=== PATIENT | male | born 1950 | race Caucasian/White ===

== ENCOUNTER 2016-06-29 16:38 | Emergency (ER) | payer MEDICARE, OTHER ==
[~2016-06-29] VITALS: Ht 180.3 cm; Wt 92.0 kg
[~2016-06-29 16:38] MED LIST: 1-ME1LIQ PO; ALBU0.086 NEB; ASPI81 PO; AUGM875T PO; BUSP10 PO; CHOL1TAB35 PO; CLAR10TA7 PO; DOCU100T9 PO; FERR324T4 PO; FIORCAP6 PO; FOLI1TAB PO; GAVICHW PO; LACT PO; LEVO.025 PO; METO25 PO; MIRA33502 PO; NEXI40CA PO; NITR0.4S SL; OLAN20TA PO; PRAZ2CAP PO; PRAZ5 PO; PROZ20CA11 PO; ROPI.5 PO; ROSU40 PO; SPIRCAP INH; SYMB160A INH; TRIX0.07 TOP; VITA100020 PO; ZANT300T PO
[2016-06-29 16:41] VITALS: BP 159/79; PULSE 74; RESP 20; TEMP 97.6; O2SAT 96
[2016-06-29] MEDS ORDERED: SODIUM CHLORIDE 0.9% FLUSH 5 ML FLUSH IVF PRN (18:45)
[2016-06-29] MEDS ORDERED: CLINDAMYCIN INJ 600 MG in SODIUM CHLORIDE 0.9% INJ 100 ML IV ONE (18:45)
[2016-06-29] MEDS ORDERED: ALBU0.08 NEB (18:53)
[2016-06-29] MEDS ORDERED: VITA10002 PO (18:53)
[2016-06-29] MEDS ORDERED: PRAZ5 PO (18:53)
[2016-06-29] MEDS ORDERED: LEVO25TA4 PO (18:53)
[2016-06-29] MEDS ORDERED: FERR325T PO (18:53)
[2016-06-29] MEDS ORDERED: VITA200012 PO (18:53)
[2016-06-29] MEDS ORDERED: BUSP10TA PO (18:53)
[2016-06-29] MEDS ORDERED: SPIRCAP INH (18:53)
[2016-06-29] MEDS ORDERED: BUTA1CAP2 PO (18:53)
[2016-06-29] MEDS ORDERED: PRAZ2 PO (18:53)
[2016-06-29] MEDS ORDERED: ROPI.25 PO (18:53)
[2016-06-29] MEDS ORDERED: NITR0.4S SL (18:53)
[2016-06-29] MEDS ORDERED: METO25TA3 PO (18:53)
[2016-06-29] MEDS ORDERED: PROB1TAB4 PO (18:53)
[2016-06-29] MEDS ORDERED: FOLI1TAB4 PO (18:53)
[2016-06-29] MEDS ORDERED: [UNRECOGNIZED DRUG - CODE] TOP (18:53)
[2016-06-29] MEDS ORDERED: NEXI40CA PO (18:53)
[2016-06-29] MEDS ORDERED: MIRA33504 PO (18:53)
[2016-06-29] MEDS ORDERED: SYMB160A INH (18:53)
[2016-06-29] MEDS ORDERED: ROSU40 PO (18:53)
[2016-06-29] MEDS ORDERED: ASPI1TAB91 PO (18:53)
[2016-06-29] MEDS ORDERED: GAVICHW CHEW (18:53)
[2016-06-29] MEDS ORDERED: PROZ40CA PO (18:53)
[2016-06-29] MEDS ORDERED: OLAN20TA PO (18:53)
[2016-06-29] MEDS ORDERED: LORA-361 PO (18:53)
[2016-06-29] MEDS ORDERED: AMLO10 PO (18:53)
[2016-06-29] MEDS ORDERED: COLA100C3 PO (18:53)
[2016-06-29] MEDS ORDERED: ZANT300T PO (18:53)
[2016-06-29 19:25] VITALS: RESP 16; O2SAT 97
--- NOTE | 2016-06-29 19:28 | RADRPT ---
EXAM DATE/TIME: 06/29/2016 18:55 [facility] COMPARISON: CHEST SINGLE AP, December 08, 2015, 16:56. INDICATIONS : SOB, Swelling MEDICAL HISTORY : Hypertension. SURGICAL HISTORY : None. ENCOUNTER: Initial ACUITY: 1 day PAIN SCORE: 0/10 LOCATION: chest FINDINGS: Minimal bibasilar atelectasis is seen. Focal consolidation is not seen. Heart and mediastinum are unr emarkable for technique. CONCLUSION: Minimal bibasilar atelectasis. Baltazar Lynn MD on June 29, 2016 at 19:26 Board Certified Radiologist. This report was verified electronically.
[2016-06-29 19:42] LABS: AUTOMATED NEUTROPHIL # 6.6 TH/MM3 (1.8-7.7); BASOPHIL # 0.1 TH/MM3 (0-0.2); BASOPHIL % 0.5 % (0.0-2.0); EOSINOPHIL # 0.2 TH/MM3 (0-0.4); EOSINOPHIL % 1.7 % (0.0-4.0); HEMATOCRIT 35.8 % (39.0-51.0); HEMO FLAGS DIFF FINAL; LYMPH % 35.6 % (9.0-44.0); LYMPHOCYTE # 4.4 TH/MM3 (1.0-4.8); MEAN CORPUSCULAR HEMOGLOBIN 29.3 PG (27.0-34.0); MEAN CORPUSCULAR HGB CONC 32.6 % (32.0-36.0); MONO % 8.5 % (0.0-8.0); NEUT % 53.7 % (16.0-70.0); PLATELET COUNT 171 TH/MM3 (150-450); RED BLOOD COUNT 3.97 MIL/MM3 (4.50-5.90); RED CELL DISTRIBUTION WIDTH 14.2 % (11.6-17.2); WHITE BLOOD COUNT 12.3 TH/MM3 (4.0-11.0)
--- NOTE | 2016-06-29 19:42 | PD ---
HPI Chief Complaint: Edema Time Seen by Provider: 18:31 Travel History International Travel<30 days: No Contact w/Intl Traveler<30days: No Traveled to known affect area: No History of Present Illness HPI Patient is a 65 year old male with history of HTN, CAD, PTSD, who comes in complaining of swelling his legs and hands. He says that his legs have been swollen for several weeks. He went to see his primary doctor a few weeks ago who gave him a course of antibiotics, which he says that he finished about 2 weeks ago without improvement of his swelling of his legs. He says yesterday he noticed swelling to his left third finger as well as a small swelling to his right second finger. He says both are painful and that the one on his left hand has grown quickly since last night. He denies fever or chills. He denies any chest pain or SOB. He denies any issues with laying flat or dyspnea on exertion. PFSH Past Medical History Autoimmune Disease: No Blood Disorders: No Anxiety: Yes Depression: Yes Heart Rhythm Problems: No Cancer: Yes ( RECTAL) Cardiac Catheterization: No Cardiovascular Problems: Yes (HTN) High Cholesterol: Yes Chest Pain: Yes ("OCASSIONALLY" ) Congestive Heart Failure: No Cerebrovascular Accident: No Diabetes: No Diminished Hearing: No Endocrine: Yes Gastrointestinal Disorders: Yes (COLONIC POLYPS) GERD: Yes Genitourinary: Yes (ENLARGED PROSTATE--DID SELF CATHETERIZATION FOR A TIME) Headaches: Yes Hepatitis: No Hiatal Hernia: Yes Hypertension: Yes Immune Disorder: No Medical other: Yes (PULMONARY EMBOLI, RESTLESS LEG SYNDROME) Musculoskeletal: Yes (CHRONIC NECK AND BACK PAIN; RIGHT SCIATICA) Psychiatric: Yes (DISSOCIATIVE DISORDER, PTSD) Reproductive: No Respiratory: Yes (SLEEP APNEA /CPAP, COPD) Migraines: No Myocardial Infarction: Yes Sleep Apnea: Yes Thyroid Disease: Yes Ulcer: Yes (PUD) Past Surgical History Abdominal Surgery: No AICD: No Body Medical Devices: CERVICAL HARDWARE Cardiac Surgery: No Coronary Artery Bypass Graft: No Ear Surgery: No Endocrine Surgery: No Eye Surgery: No Genitourinary Surgery: No Gynecologic Surgery: No Joint Replacement: No Neurologic Surgery: Yes (CERVICAL 4/5 FUSION APR 03) Oral Surgery: Yes (TONSILLECTOMY) Pacemaker: No Thoracic Surgery: No Tonsillectomy: Yes Other Surgery: Yes (CARPEL TUNNEL SURGERY) Social History Alcohol Use: No Tobacco Use: Yes (3/4ppd) Substance Use: No Allergies-Medications (Allergen,Severity, Reaction): Coded Allergies: *MDRO Multi-Drug Resistant Organism (Verified Adverse Reaction, Unknown, ) 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 Repeat every 5 minutes for a total of 3 DOSES or call 911 if NO relief. Vitamin B-12 (Cyanocobalamin) 1,000 Mcg Tab 1,000 Mcg PO DAILY Miralax Powder (Polyethylene Glycol 3350 Powder) 17 Gm Powd 17 Gm PO BID PRN Mix and dissolve one measuring capful (17 grams) in water or juice. Minipress (Prazosin HCl) 2 Mg Cap 7 Mg PO HS Take 1 capsule (2mg) with 5mg capsule for a total dose of 7mg Minipress (Prazosin HCl) 5 Mg Cap 7 Mg PO HS Take 1 capsule (5mg) with 2mg capsule for a total dose of 7mg Metoprolol Tartrate 25 Mg Tab 12.5 Mg PO BID Claritin (Loratadine) 10 Mg Tab 10 Mg PO DAILY Levothyroxine (Levothyroxine Sodium) 25 Mcg Tab 25 Mcg PO DAILY Gaviscon (Aluminum Hydroxide-Mag Trisil) 80-14.2 mg Chew 2 Tab CHEW TIDAC PRN Maximum 16 tabs/24 hrs Folate (Folic Acid) 1 Mg Tab 1 Mg PO EVERY OTHER DAY Prozac (Fluoxetine HCl) 40 Mg Cap 40 Mg PO DAILY Ferrous Sulfate 325 Mg Tab 325 Mg PO BID Nexium (Esomeprazole DR) 40 Mg Capdr 40 Mg PO DAILY Colace (Docusate Sodium) 100 Mg Cap 100 Mg PO BID PRN Zostrix High Potency (Capsaicin) 0.075 % Cre 1 Applic TOP TID PRN Vitamin D3 (Cholecalciferol) 2,000 Unit Tab 2,000 Units PO DAILY Fioricet-Codeine (Nknwtrozrl-Mdpdtqpratqua-Htlssnrs-Codeine) 02-706-38-30 Mg Cap 1 Cap PO TID PRN Do not exceed 6 capsules/day. No more than twice a week. Buspirone (Buspirone HCl) 10 Mg Tab 20 Mg PO TID Symbicort Inh (Budesonide/Formoterol Fumarate) 160-4.5 Mcg/Act Aero 2 Puff INH BID Aspirin Adult Low Strength (Aspirin) 81 Mg Tabdr 81 Mg PO DAILY Albuterol Neb (Albuterol Sulfate) 2.5 Mg/3 Ml Neb 2.5 Mg NEB BID Acidophilus Probiotic (Probiotic Product) 1 Tab Tab 2 Tab PO DAILY Norvasc (Amlodipine Besylate) 10 Mg Tab 10 Mg PO DAILY Review of Systems Except as stated in HPI: all other systems reviewed are Neg General / Constitutional: No: Fever, Chills HENT: No: Headaches, Lightheadedness Cardiovascular: No: Chest Pain or Discomfort Respiratory: No: Shortness of Breath Gastrointestinal: No: Nausea, Vomiting Genitourinary: No: Dysuria Musculoskeletal: Positive: Edema, Pain Skin: Positive Lesions Neurologic: No: Weakness, Dizziness Physical Exam Narrative GENERAL: Awake and alert in no acute distress. SKIN: Warm and dry. 4cm fluctuant lesion at the base of the left third finger. 1cm tender ecchymotic lesion to the right second finger, tender to palpation. Red streaking to the dorsal surface of the left hand. HEAD: Atraumatic. Normocephalic. EYES: Pupils equal and round. No scleral icterus. ENT: Mucous membranes pink and moist. NECK: Trachea midline. No JVD. CARDIOVASCULAR: Regular rate and rhythm. No murmur appreciated. RESPIRATORY: No accessory muscle use. Clear to auscultation. Breath sounds equal bilaterally. GASTROINTESTINAL: Abdomen soft, non-tender, nondistended. MUSCULOSKELETAL: No obvious deformities. No clubbing. No cyanosis. Large bilateral pitting edema, calves tender to palpation. NEUROLOGICAL: Awake and alert. No obvious cranial nerve deficits. Motor grossly within normal limits. Normal speech. PSYCHIATRIC: Appropriate mood and affect; insight and judgment normal. Data Data Last Documented VS Vital Signs Date Time Temp Pulse Resp B/P Pulse Ox O2 Delivery O2 Flow Rate FiO2 06/29/16 19:25 16 97 Room Air 06/29/16 18:26 57 06/29/16 16:41 97.6 159/79 Orders Complete Blood Count With Diff (06/29/16 18:42) Comprehensive Metabolic Panel (06/29/16 18:42) B-Type Natriuretic Peptide (06/29/16 18:42) Act Partial Throm Time (Ptt) (06/29/16 18:42) Prothrombin Time / Inr (Pt) (06/29/16 18:42) Troponin I (06/29/16 18:42) Iv Access Insert/Monitor (06/29/16 18:42) Electrocardiogram (06/29/16 18:42) Ecg Monitoring (06/29/16 18:42) Oximetry (06/29/16 18:42) Oxygen Administration (06/29/16 18:42) Chest, Pa & Lat (06/29/16 18:42) Sodium Chloride 0.9% Flush (Ns Flush) (06/29/16 18:45) Us Leg Venous Doppler Bilat (06/29/16 ) Clindamycin Inj (Cleocin Inj) (06/29/16 18:45) Wound Culture And Gram Stain (06/29/16 18:48) Labs Laboratory Tests Test 06/29/16 18:15 White Blood Count 12.3 TH/MM3 Red Blood Count 3.97 MIL/MM3 Hemoglobin 11.7 GM/DL Hematocrit 35.8 % Mean Corpuscular Volume 90.0 FL Mean Corpuscular Hemoglobin 29.3 PG Mean Corpuscular Hemoglobin 32.6 % Concent Red Cell Distribution Width 14.2 % Platelet Count 171 TH/MM3 Mean Platelet Volume 8.8 FL Neutrophils (%) (Auto) 53.7 % Lymphocytes (%) (Auto) 35.6 % Monocytes (%) (Auto) 8.5 % Eosinophils (%) (Auto) 1.7 % Basophils (%) (Auto) 0.5 % Neutrophils # (Auto) 6.6 TH/MM3 Lymphocytes # (Auto) 4.4 TH/MM3 Monocytes # (Auto) 1.0 TH/MM3 Eosinophils # (Auto) 0.2 TH/MM3 Basophils # (Auto) 0.1 TH/MM3 CBC Comment DIFF FINAL Differential Comment Prothrombin Time 10.7 SEC Prothromb Time International 1.0 RATIO Ratio Activated Partial 27.3 SEC Thromboplast Time Sodium Level 141 MEQ/L Potassium Level 3.9 MEQ/L Chloride Level 109 MEQ/L Carbon Dioxide Level 26.1 MEQ/L Anion Gap 6 MEQ/L Blood Urea Nitrogen 20 MG/DL Creatinine 0.89 MG/DL Estimat Glomerular Filtration 86 ML/MIN Rate Random Glucose 96 MG/DL Calcium Level 8.5 MG/DL Total Bilirubin 0.3 MG/DL Aspartate Amino Transf 10 U/L (AST/SGOT) Alanine Aminotransferase 19 U/L (ALT/SGPT) Alkaline Phosphatase 123 U/L Troponin I LESS THAN 0.02 NG/ML B-Type Natriuretic Peptide 42 PG/ML Total Protein 6.6 GM/DL Albumin 3.5 GM/DL [facility] Medical Decision Making Medical Screen Exam Complete: Yes Emergency Medical Condition: Yes Medical Record Reviewed: Yes Differential Diagnosis CHF vs peripheral edema vs cellulitis vs paronychia vs DVT Narrative Course Patient is a 65-year-old male who comes in complaining of swelling of his legs and his hands. Exam shows a paronychia of the left hand, with some red streaking of his skin consistent with cellulitis. Both legs are edematous as well. IV established, labs sent. Paronychia drained and bandaged. Patient given a dose of clindamycin. Bilateral Dopplers order to rule out DVT. Patient signed out to Dr. Torres to follow-up tests and disposition appropriately. Procedures Procedure Narrative INCISION AND DRAINAGE OF ABSCESS: The area was prepped and was sterilely draped. A number 11 scalpel was used to make a 1 -cm incision at the base of the nail. Large amount of serosanguineous fluid drained. Cultures were obtained. Sterile dressing applied. Scripts Sulfamethoxazole-Trimethoprim (Bactrim DS)800-160 Mg Tab1 Tab PO BID #20 TAB Ref 0 Prov:Izaiah Torres MD 06/29/16 Condition: Stable Norma Florence MD Jun 29, 2016 19:42
[2016-06-29 19:56] LABS: APTT (PATIENT) 27.3 SEC (24.3-30.1); PROTHROMBIN TIME - PATIENT 10.7 SEC (9.8-11.6)
[2016-06-29 20:06] LABS: ANION GAP 6 MEQ/L (5-15); AST (GOT) 10 U/L (15-37); BICARBONATE 26.1 MEQ/L (21.0-32.0); BLOOD UREA NITROGEN 20 MG/DL (7-18); CHLORIDE 109 MEQ/L (98-107); GLOMERULAR FILTRATION RATE 86 ML/MIN (>89); POTASSIUM 3.9 MEQ/L (3.5-5.1); SODIUM (NA) 141 MEQ/L (136-145)
[2016-06-29 20:11] LABS: ALKALINE PHOSPHATASE 123 U/L (45-117); ALT (GPT) 19 U/L (12-78); TOTAL BILIRUBIN ADULT 0.3 MG/DL (0.2-1.0)
--- NOTE | 2016-06-29 20:41 | RADRPT ---
EXAM DATE/TIME: 06/29/2016 19:28 [facility] COMPARISON: No previous studies available for comparison. INDICATIONS : Bilateral leg swelling. MEDICAL HISTORY : Myocardial infarction. Hypercholesterolemia. Hypertension. Chronic obstuctive pulmonary disorder. Thy roid disease. Headaches. Sleep apnea. Colonic polyps. Ulcers. Hiatal hernia. Gastroesophageal reflux disease. Benign prostatic hypertrophy. Post traumatic stress disorder. Rectal cancer. Measles. Pulmon sourav emboli. Restless leg syndrome. Chronic back pain. SURGICAL HISTORY : Tonsillectomy.Fusion, cervical. Right shoulder surgery. Carpal tunnel surgery. ENCOUNTER: Initial ACUITY: 1 day PAIN SCORE: 5/10 LOCATION: Bilateral legs. TECHNIQUE: Venous ultrasound of the left and right leg was performed from the inguinal ligament to the proximal calf. Real-time, color Doppler and spectral tracing, compression and augmentation techniques were us ed. FINDINGS: RIGHT LEG: There is normal compressibility of the deep venous system from the inguinal region to the proximal ca lf. No echogenic clot is seen in the lumen of the common femoral, femoral, popliteal, and posterior tibial veins. There is a normal response of the venous system to proximal and distal augmentation an d respiration. LEFT LEG: There is normal compressibility of the deep venous system from the inguinal region to the proximal ca lf. No echogenic clot is seen in the lumen of the common femoral, femoral, popliteal, and posterior tibial veins. There is a normal response of the venous system to proximal and distal augmentation an d respiration. Multiple enlarged lymph nodes are present the largest one measures 3.1 cm in size. Th ere is also an approximate 3.2 cm Tavares's cyst. CONCLUSION: 1. No DVT. 2. Tavares's cyst and nonspecific lymph nodes on the left side. Baltazar Lynn MD on June 29, 2016 at 20:38 Board Certified Radiologist. This report was verified electronically.
[2016-06-29] MEDS ORDERED: BACT800T5 PO (20:57)
--- NOTE | 2016-06-29 20:57 | PD ---
Physical Exam Date Seen by Provider: Jun 29, 2016 Time Seen by Provider: 20:52 Narrative 65-year-old male came to the emergency room with history of bilateral lower extremity swelling and swelling of his hands. He was seen by the previous ER physician who also noticed that patient had paronychia which was drained. Therefore lab tests ordered an ultrasound of his lower extremities which was signed out to need to be followed up. Test results are back. Patient has some leukocytosis. Ultrasound shows a popliteal cyst. Other than that the test results are unremarkable. I am planning to discharge this patient home with by mouth antibiotic prescription. He did get a dose of antibiotic as per the previous ER physician. Patient is comfortable with that plan. Data Data Last Documented VS Vital Signs Date Time Temp Pulse Resp B/P Pulse Ox O2 Delivery O2 Flow Rate FiO2 06/29/16 19:25 16 97 Room Air 06/29/16 18:26 57 06/29/16 16:41 97.6 159/79 Orders Complete Blood Count With Diff (06/29/16 18:42) Comprehensive Metabolic Panel (06/29/16 18:42) B-Type Natriuretic Peptide (06/29/16 18:42) Act Partial Throm Time (Ptt) (06/29/16 18:42) Prothrombin Time / Inr (Pt) (06/29/16 18:42) Troponin I (06/29/16 18:42) Iv Access Insert/Monitor (06/29/16 18:42) Electrocardiogram (06/29/16 18:42) Ecg Monitoring (06/29/16 18:42) Oximetry (06/29/16 18:42) Oxygen Administration (06/29/16 18:42) Chest, Pa & Lat (06/29/16 18:42) Sodium Chloride 0.9% Flush (Ns Flush) (06/29/16 18:45) Us Leg Venous Doppler Bilat (06/29/16 ) Clindamycin Inj (Cleocin Inj) (06/29/16 18:45) Wound Culture And Gram Stain (06/29/16 18:48) Labs Laboratory Tests Test 06/29/16 18:15 White Blood Count 12.3 TH/MM3 Red Blood Count 3.97 MIL/MM3 Hemoglobin 11.7 GM/DL Hematocrit 35.8 % Mean Corpuscular Volume 90.0 FL Mean Corpuscular Hemoglobin 29.3 PG Mean Corpuscular Hemoglobin 32.6 % Concent Red Cell Distribution Width 14.2 % Platelet Count 171 TH/MM3 Mean Platelet Volume 8.8 FL Neutrophils (%) (Auto) 53.7 % Lymphocytes (%) (Auto) 35.6 % Monocytes (%) (Auto) 8.5 % Eosinophils (%) (Auto) 1.7 % Basophils (%) (Auto) 0.5 % Neutrophils # (Auto) 6.6 TH/MM3 Lymphocytes # (Auto) 4.4 TH/MM3 Monocytes # (Auto) 1.0 TH/MM3 Eosinophils # (Auto) 0.2 TH/MM3 Basophils # (Auto) 0.1 TH/MM3 CBC Comment DIFF FINAL Differential Comment Prothrombin Time 10.7 SEC Prothromb Time International 1.0 RATIO Ratio Activated Partial 27.3 SEC Thromboplast Time Sodium Level 141 MEQ/L Potassium Level 3.9 MEQ/L Chloride Level 109 MEQ/L Carbon Dioxide Level 26.1 MEQ/L Anion Gap 6 MEQ/L Blood Urea Nitrogen 20 MG/DL Creatinine 0.89 MG/DL Estimat Glomerular Filtration 86 ML/MIN Rate Random Glucose 96 MG/DL Calcium Level 8.5 MG/DL Total Bilirubin 0.3 MG/DL Aspartate Amino Transf 10 U/L (AST/SGOT) Alanine Aminotransferase 19 U/L (ALT/SGPT) Alkaline Phosphatase 123 U/L Troponin I LESS THAN 0.02 NG/ML B-Type Natriuretic Peptide 42 PG/ML Total Protein 6.6 GM/DL Albumin 3.5 GM/DL MDM Supervised Visit with ADILSON: No Procedures Procedure Narrative Incision and drainage: 9:37 PM: right thumb has an abscess that is 1 x 1 cm at the tip of the thumb pad. Patient is extremely tender to touch on that area. I decided to drain the abscess. It was agreed upon mutually that this would be done without local anesthesia. The area was cleaned with Betadine and with sterile scalpel a 0.5 cm incision was made horizontally. Immediately purulent material started to drain out. The soft tissue was pushed on to express more purulent content. Swab was sent for culture. Patient was in pain but overall tolerated the procedure well. The nurse will do the dressing. Diagnosis Primary Impression: Paronychia Qualified Code: L03.012 - Paronychia, left Additional Impressions: Dependent edema Tavares cyst Qualified Code: M71.22 - Tavares cyst, left Abscess Referrals: Primary Care Physician 3 days Additional Instruction: Please return to the ER if the condition worsens or any other new concerns. Otherwise follow-up with your primary care in couple days. Take the antibiotic as per the prescription direction. Wear compression stockings to minimize the leg swelling. Keep the legs elevated above the heart level. Med/Other Pt SpecificInfo: Prescription(s) given Scripts Sulfamethoxazole-Trimethoprim (Bactrim DS)800-160 Mg Tab1 Tab PO BID #20 TAB Ref 0 Prov:Izaiah Torres MD 06/29/16 Disposition: 01 DISCHARGE HOME Condition: Stable Izaiah Torres MD Jun 29, 2016 20:57
--- NOTE | 2016-07-01 13:18 | EKG ---
Date Performed: 06/29/2016 Time Performed: 20:11:26 PTAGE: 65 years EKG: SINUS BRADYCARDIA Since previous tracing, no significant change noted BORDERLINE ECG PREVIOUS TRACING : 12/08/2015 16.46 DOCTOR: Chanell Lee Interpretating Date/Time 07/01/2016 13:17:08
== END 2016-06-29 22:33 | disposition home or self-care (01) ==
LOC: NEPC 16:38
DX: L03.012 Cellulitis of left finger (principal); B95.62 Methicillin resistant Staphylococcus aureus infection as the cause of diseases classified elsewhere; R60.9 Edema, unspecified; M71.22 Synovial cyst of popliteal space [Baker], left knee; R00.1 Bradycardia, unspecified; R59.9 Enlarged lymph nodes, unspecified; E78.00 Pure hypercholesterolemia, unspecified; I10 Essential (primary) hypertension; I25.2 Old myocardial infarction; R06.02 Shortness of breath; F17.210 Nicotine dependence, cigarettes, uncomplicated
CPT/HCPCS: 10060; 71020; 80053; 83880; 84484; 85025; 85610; 85730; 86403; 87070; 87186; 87205; 93005; 93970; 96365; 96366

== ENCOUNTER 2016-08-28 08:44 | Inpatient (IN) | payer OTHER ==
[~2016-08-28] VITALS: Ht 180.3 cm; Wt 102.3 kg
[2016-08-28] VITALS (7 sets, daily range): BP systolic 69–119; BP diastolic 52–59; PULSE 72–99; RESP 12–20; TEMP 97.5–100.7; O2SAT 92–98
[~2016-08-28 08:44] MED LIST changes: -1-ME1LIQ PO; +ALBU0.08 NEB; -ALBU0.086 NEB; +AMLO10 PO; +ASPI1TAB91 PO; -ASPI81 PO; -AUGM875T PO; +BACT800T5 PO; -BUSP10 PO; +BUSP10TA PO; +BUTA1CAP2 PO; -CHOL1TAB35 PO; -CLAR10TA7 PO; +COLA100C3 PO; -DOCU100T9 PO; -FERR324T4 PO; +FERR325T PO; -FIORCAP6 PO; -FOLI1TAB PO; +FOLI1TAB4 PO; +GAVICHW CHEW; -GAVICHW PO; -LACT PO; -LEVO.025 PO; +LEVO25TA4 PO; +LORA-361 PO; -METO25 PO; +METO25TA3 PO; -MIRA33502 PO; +MIRA33504 PO; +PRAZ2 PO; -PRAZ2CAP PO; +PROB1TAB4 PO; -PROZ20CA11 PO; +PROZ40CA PO; +ROPI.25 PO; -ROPI.5 PO; -TRIX0.07 TOP; +VITA10002 PO; -VITA100020 PO; +VITA200012 PO; +[UNRECOGNIZED DRUG - CODE] TOP
--- NOTE | 2016-08-28 09:11 | PD ---
HPI Chief Complaint: Skin Problem Time Seen by Provider: 09:10 Travel History International Travel<30 days: No Contact w/Intl Traveler<30days: No Traveled to known affect area: No History of Present Illness HPI 65-year-old male came to the emergency room with history of right arm swelling that he noticed yesterday along with fever and chills last night. Patient says he has history of MRSA. He had a temperature of 99.9 in the ER. He seems slightly somnolent. But answers my questions appropriately. His arm is very swollen and red and he says he noticed this yesterday only. There is a small opening near the elbow that's draining. Patient denied scratching it or trying to manipulate a pimple. He says he has history of leukemia but does not know exactly what kind. He is not on any chemotherapy since he refused that he said. Patient denied being on any blood thinners. He is on 1 baby aspirin every day. [facility] Past Medical History Narrative Medical List of his past medical, surgical, social and family history was reviewed from the nursing note. Hx Anticoagulant Therapy: Yes (asa daily) Autoimmune Disease: No Blood Disorders: No Anxiety: Yes Depression: Yes Heart Rhythm Problems: No Cancer: Yes ( RECTAL) Cardiac Catheterization: No Cardiovascular Problems: Yes (HTN) High Cholesterol: Yes Chest Pain: Yes ("OCASSIONALLY" ) Congestive Heart Failure: No Cerebrovascular Accident: No Diabetes: No Diminished Hearing: No Endocrine: Yes Gastrointestinal Disorders: Yes (COLONIC POLYPS) GERD: Yes Genitourinary: Yes (ENLARGED PROSTATE--DID SELF CATHETERIZATION FOR A TIME) Headaches: Yes Hepatitis: No Hiatal Hernia: Yes Hypertension: Yes Immune Disorder: No Medical other: Yes (PULMONARY EMBOLI, RESTLESS LEG SYNDROME) Musculoskeletal: Yes (CHRONIC NECK AND BACK PAIN; RIGHT SCIATICA) Psychiatric: Yes (DISSOCIATIVE DISORDER, PTSD) Reproductive: No Respiratory: Yes (SLEEP APNEA /CPAP, COPD) Migraines: No Myocardial Infarction: Yes Sleep Apnea: Yes Thyroid Disease: Yes Ulcer: Yes (PUD) Tetanus Vaccination: < 5 Years Influenza Vaccination: Yes Past Surgical History Abdominal Surgery: No AICD: No Body Medical Devices: CERVICAL HARDWARE Cardiac Surgery: No Coronary Artery Bypass Graft: No Ear Surgery: No Endocrine Surgery: No Eye Surgery: No Genitourinary Surgery: No Gynecologic Surgery: No Joint Replacement: No Neurologic Surgery: Yes (CERVICAL 4/5 FUSION APR 03) Oral Surgery: Yes (TONSILLECTOMY) Pacemaker: No Thoracic Surgery: No Tonsillectomy: Yes Other Surgery: Yes (CARPEL TUNNEL SURGERY) Social History Alcohol Use: No Tobacco Use: Yes (07/28ppd) Substance Use: No Allergies-Medications (Allergen,Severity, Reaction): Coded Allergies: *MDRO Multi-Drug Resistant Organism (Verified Adverse Reaction, Unknown, ) MRSA (finger)-06/29/16; (arm)-08/28/16 Comments List of his allergies reviewed from the nursing note. Reported Meds & Prescriptions Reported Meds & Active Scripts Active Reported Spiriva Handihaler (Tiotropium Inh) 18 Mcg Cap 1 Puff INH DAILY 1 capsule = 18 mcg Crestor (Rosuvastatin Calcium) 40 Mg Tab 40 Mg PO HS Requip (Ropinirole HCl) 0.25 Mg Tab 0.25 Mg PO HS Zantac (Ranitidine HCl) 300 Mg Tab 300 Mg PO BID Olanzapine 20 Mg Tab 20 Mg PO DAILY Nitrostat SL (Nitroglycerin) 0.4 Mg Subl 0.4 Mg SL DIRECTED PRN 1 tablet under the tongue as needed for chest pain. Repeat every 5 minutes for a total of 3 DOSES or call 911 if NO relief. Vitamin B-12 (Cyanocobalamin) 1,000 Mcg Tab 1,000 Mcg PO DAILY Miralax Powder (Polyethylene Glycol 3350 Powder) 17 Gm Powd 17 Gm PO BID PRN Mix and dissolve one measuring capful (17 grams) in water or juice. Minipress (Prazosin HCl) 2 Mg Cap 7 Mg PO HS Take 1 capsule (2mg) with 5mg capsule for a total dose of 7mg Minipress (Prazosin HCl) 5 Mg Cap 7 Mg PO HS Take 1 capsule (5mg) with 2mg capsule for a total dose of 7mg Metoprolol Tartrate 25 Mg Tab 12.5 Mg PO BID Claritin (Loratadine) 10 Mg Tab 10 Mg PO DAILY Levothyroxine (Levothyroxine Sodium) 25 Mcg Tab 25 Mcg PO DAILY Gaviscon (Aluminum Hydroxide-Mag Trisil) 80-14.2 mg Chew 2 Tab CHEW TIDAC PRN Maximum 16 tabs/24 hrs Folate (Folic Acid) 1 Mg Tab 1 Mg PO EVERY OTHER DAY Prozac (Fluoxetine HCl) 40 Mg Cap 40 Mg PO DAILY Ferrous Sulfate 325 Mg Tab 325 Mg PO BID Nexium (Esomeprazole DR) 40 Mg Capdr 40 Mg PO DAILY Colace (Docusate Sodium) 100 Mg Cap 100 Mg PO BID PRN Vitamin D3 (Cholecalciferol) 2,000 Unit Tab 2,000 Units PO DAILY Fioricet-Codeine (Nnwecsyjzg-Rjszinujsmgor-Omgxvbbu-Codeine) 75-443-22-30 Mg Cap 1 Cap PO TID PRN Do not exceed 6 capsules/day. No more than twice a week. Buspirone (Buspirone HCl) 10 Mg Tab 20 Mg PO TID Symbicort Inh (Budesonide/Formoterol Fumarate) 160-4.5 Mcg/Act Aero 2 Puff INH BID Aspirin Adult Low Strength (Aspirin) 81 Mg Tabdr 81 Mg PO DAILY Albuterol Neb (Albuterol Sulfate) 2.5 Mg/3 Ml Neb 2.5 Mg NEB BID Norvasc (Amlodipine Besylate) 10 Mg Tab 10 Mg PO DAILY Narrative Medication List of his home medications reviewed from the nursing note. Review of Systems Except as stated in HPI: all other systems reviewed are Neg Physical Exam Narrative GENERAL: Somnolent but opens his eyes and answers questions appropriately, obese , moderate distress SKIN: Focused skin assessment warm/dry. Right arm is swollen distal to the elbow with erythema. On the extensor aspect of the forearm just distal to the elbow there is an opening that's draining serous sanguinous fluid. Distal pulses are present. HEAD: Atraumatic. Normocephalic. EYES: Pupils equal and round. No scleral icterus. No injection or drainage. ENT: No nasal bleeding or discharge. Mucous membranes pink and moist. NECK: Trachea midline. No JVD. CARDIOVASCULAR: Regular rate and rhythm. No murmur appreciated. RESPIRATORY: No accessory muscle use. Clear to auscultation. Breath sounds equal bilaterally. GASTROINTESTINAL: Abdomen soft, non-tender, nondistended. Hepatic and splenic margins not palpable. MUSCULOSKELETAL: No obvious deformities. No clubbing. No cyanosis. No edema. NEUROLOGICAL: Awake and alert. No obvious cranial nerve deficits. Motor grossly within normal limits. Normal speech. PSYCHIATRIC: Appropriate mood and affect; insight and judgment normal. Data Data Last Documented VS Vital Signs Date Time Temp Pulse Resp B/P Pulse Ox O2 Delivery O2 Flow Rate FiO2 08/28/16 10:05 72 18 106/58 98 Room Air 08/28/16 08:48 99.4 Orders Complete Blood Count With Diff (08/28/16 09:22) Comprehensive Metabolic Panel (08/28/16:) Lactic Acid Sepsis Protocol (08/28/16:22) Blood Culture (08/28/16:) Wound Culture And Gram Stain (08/28/16:) Chest, Single Ap (08/28/16:) Blood Glucose (08/28/16:22) Ecg Monitoring (08/28/16:) Iv Access Insert/Monitor (08/28/16) Oximetry (08/28/16:) Oxygen Administration (08/28/16:) Piperacil-Tazo 4.5 Gm Premix (Zosyn 4.5 (08/28/16:) Vancomycin Inj (Vancomycin Inj) (08/28/16:22) Sodium Chlor 0.9% 1000 Ml Inj (Ns 1000 M (08/28/16 09:22) Sodium Chlor 0.9% 1000 Ml Inj (Ns 1000 M (08/28/16 09:22) Sodium Chlor 0.9% 1000 Ml Inj (Ns 1000 M (08/28/16 09:22) Ct Forearm W Iv Contrast (08/28/16 ) Type And Screen (08/28/16 09:25) Iohexol 350 Inj (Omnipaque 350 Inj) (08/28/16 10:54) Admit Order (Ed Use Only) (08/28/16 10:59) Labs Laboratory Tests Test 08/28/16 09:30 White Blood Count 15.4 TH/MM3 Red Blood Count 4.24 MIL/MM3 Hemoglobin 12.5 GM/DL Hematocrit 36.9 % Mean Corpuscular Volume 87.1 FL Mean Corpuscular Hemoglobin 29.5 PG Mean Corpuscular Hemoglobin 33.8 % Concent Red Cell Distribution Width 13.9 % Platelet Count 200 TH/MM3 Mean Platelet Volume 8.8 FL Neutrophils (%) (Auto) 60.7 % Lymphocytes (%) (Auto) 29.9 % Monocytes (%) (Auto) 8.2 % Eosinophils (%) (Auto) 0.9 % Basophils (%) (Auto) 0.3 % Neutrophils # (Auto) 9.3 TH/MM3 Lymphocytes # (Auto) 4.6 TH/MM3 Monocytes # (Auto) 1.3 TH/MM3 Eosinophils # (Auto) 0.1 TH/MM3 Basophils # (Auto) 0.0 TH/MM3 CBC Comment DIFF FINAL Differential Comment Sodium Level 135 MEQ/L Potassium Level 3.5 MEQ/L Chloride Level 98 MEQ/L Carbon Dioxide Level 27.2 MEQ/L Anion Gap 10 MEQ/L Blood Urea Nitrogen 30 MG/DL Creatinine 1.66 MG/DL Estimat Glomerular Filtration 42 ML/MIN Rate Random Glucose 125 MG/DL Lactic Acid Level 1.4 mmol/L Calcium Level 9.0 MG/DL Total Bilirubin 0.7 MG/DL Aspartate Amino Transf 10 U/L (AST/SGOT) Alanine Aminotransferase 16 U/L (ALT/SGPT) Alkaline Phosphatase 119 U/L Total Protein 6.9 GM/DL Albumin 3.2 GM/DL Blood Type A POSITIVE Antibody Screen NEGATIVE MDM Medical Decision Making Medical Screen Exam Complete: Yes Emergency Medical Condition: Yes Medical Record Reviewed: Yes Differential Diagnosis Abscess, cellulitis, sepsis Narrative Course 9:35 AM awaiting for the blood test results. I've ordered CT scan of the forearm with IV contrast. Awaiting for that to be done and resulted. He has been started on sepsis protocol. I have ordered him Zosyn and vancomycin given his previous history of MRSA. He will require admission. A wound culture was collected by me on the drainage from the forearm. Procedures EKG Prior to Arrival: No Sepsis Criteria SIRS Criteria (2 or more): Heart rate over 90, WBC > 90438, < 4000 or > 10% bands Sepsis Criteria (SIRS+source): Infect source susp/known Diagnosis Primary Impression: SIRS (systemic inflammatory response syndrome) Additional Impression: Right arm cellulitis Admitting Information Admitting Physician Requests: Admit Izaiah Torres MD Aug 28, 2016 09:11
[2016-08-28] MEDS ORDERED: PIPERACIL-TAZO 4.5 GM PREMIX 100 ML IV STA (09:22)
[2016-08-28] MEDS ORDERED: VANCOMYCIN INJ 1,000 MG in SODIUM CHLOR 0.9% 250 ML INJ 250 ML IV STA (09:22)
[2016-08-28] MEDS ORDERED: SODIUM CHLOR 0.9% 1000 ML INJ 1,000 ML IV ONE ×3 (09:22)
--- NOTE | 2016-08-28 09:47 | RADRPT ---
EXAM DATE/TIME: 08/28/2016 09:27 [facility] COMPARISON: CHEST SINGLE AP, December 08, 2015, 16:56. INDICATIONS : Fever, infected right arm. MEDICAL HISTORY : None. SURGICAL HISTORY : None. ENCOUNTER: Initial ACUITY: 1 day PAIN SCORE: 0/10 LOCATION: Bilateral chest FINDINGS: A single view of the chest demonstrates the lungs to be symmetrically aerated with right basilar scar ring or atelectasis. Lungs otherwise clear. No effusions. Heart size is normal. Osseous structures ar e intact. Wire density projects over the coracoid and clavicle on the right. CONCLUSION: Linear scarring or atelectasis in the right base. David Keene MD on August 28, 2016 at 9:42 Board Certified Radiologist. This report was verified electronically.
[2016-08-28 10:07] LABS: AUTOMATED NEUTROPHIL # 9.3 TH/MM3 (1.8-7.7); BASOPHIL % 0.3 % (0.0-2.0); EOSINOPHIL # 0.1 TH/MM3 (0-0.4); EOSINOPHIL % 0.9 % (0.0-4.0); HEMATOCRIT 36.9 % (39.0-51.0); HEMO FLAGS DIFF FINAL; LYMPH % 29.9 % (9.0-44.0); LYMPHOCYTE # 4.6 TH/MM3 (1.0-4.8); MEAN CELL VOLUME 87.1 FL (80.0-100.0); MEAN CORPUSCULAR HEMOGLOBIN 29.5 PG (27.0-34.0); MEAN CORPUSCULAR HGB CONC 33.8 % (32.0-36.0); MONO % 8.2 % (0.0-8.0); NEUT % 60.7 % (16.0-70.0); PLATELET COUNT 200 TH/MM3 (150-450); RED BLOOD COUNT 4.24 MIL/MM3 (4.50-5.90); RED CELL DISTRIBUTION WIDTH 13.9 % (11.6-17.2); WHITE BLOOD COUNT 15.4 TH/MM3 (4.0-11.0)
[2016-08-28 10:18] LABS: ALT (GPT) 16 U/L (12-78); ANION GAP 10 MEQ/L (5-15); AST (GOT) 10 U/L (15-37); BICARBONATE 27.2 MEQ/L (21.0-32.0); BLOOD UREA NITROGEN 30 MG/DL (7-18); CHLORIDE 98 MEQ/L (98-107); GLOMERULAR FILTRATION RATE 42 ML/MIN (>89); POTASSIUM 3.5 MEQ/L (3.5-5.1); SODIUM (NA) 135 MEQ/L (136-145)
[2016-08-28 10:20] LABS: ALKALINE PHOSPHATASE 119 U/L (45-117); TOTAL BILIRUBIN ADULT 0.7 MG/DL (0.2-1.0)
[2016-08-28] MEDS ORDERED: IOHEXOL 350 MG/ML 10 ML VIAL (for RAD DIAG) IV ONE (10:54)
--- NOTE | 2016-08-28 11:07 | HHI.HP ---
[facility] Service Family Medicine Primary Care Physician [facility] Admission Diagnosis SIRS, right forearm cellulitis Diagnoses: International Travel<30 Days: No Contact w/Intl Traveler<30days: No Known Affected Area: No History of Present Illness Mr. Iyer is a 65 y/o CM with an extensive PMHx presents with RUE swelling and erythema with a purulent wound at the elbow. He states that on 06/29/16 he was seen at [facility] for MRSA infection of the LLE and the LUE with similar swelling and erythema. He was discharged from the ER with Bactrim for 10 days and was compliant. He states that the swelling and erythema resolved, but has now come back in his RUE. Today he presents with 48 hours of RUE swelling and erythema from the mid-bicep to the digits. He endorses subjective fevers with chills since being seen on 06/29/16. He states that this episode is different in that the swelling is more "solid" and has a purulent wound at the olecranon. He denies any trauma to the extremity, but does state that he noticed a small swelling on the 3rd digit that he lanced with a needle at his home. He has good sensation and circulation throughout the extremity with appropriate strength and ROM. Otherwise he has no complaints and denies any chest pain, shortness of breath, NVD, or calf tenderness. [facility] (Priyank Velez MD R1) Review of Systems Constitutional: COMPLAINS OF: Fever (subjective), Chills Endocrine: DENIES: Polyuria Eyes: DENIES: Double Vision Ears, nose, mouth, throat: DENIES: Throat pain, Running Nose Respiratory: DENIES: Cough, Shortness of breath Cardiovascular: DENIES: Chest pain Gastrointestinal: DENIES: Abdominal pain, Diarrhea, Nausea, Vomiting Genitourinary: DENIES: Dysuria Musculoskeletal: DENIES: Joint pain Integumentary: DENIES: Rash Hematologic/lymphatic: COMPLAINS OF: Lymphadenopathy Immunologic/allergic: DENIES: Urticaria Neurologic: COMPLAINS OF: Headache Psychiatric: DENIES: Mood changes (Priyank Velez MD R1) Past Family Social History Past Medical History -Leukemia, appointment on 09/01 with Oncology, diagnosed recently -HTN -Dyslipidemia -Rectal cancer, per chart review -BPH -Hypothyroidism -GERD -Mild to moderate nonobstructive coronary artery disease -COPD -PTSD -History of PE Past Surgical History Tonsillectomy Right shoulder surgery Carpal tunnel surgery, right hand (Priyank Velez MD R1) Allergies: Coded Allergies: *MDRO Multi-Drug Resistant Organism (Verified Adverse Reaction, Unknown, ) MRSA (finger)-06/29/16 Active Ordered Medications Reported Meds & Active Scripts Active Reported Spiriva Handihaler (Tiotropium Inh) 18 Mcg Cap 1 Puff INH DAILY 1 capsule = 18 mcg Crestor (Rosuvastatin Calcium) 40 Mg Tab 40 Mg PO HS Requip (Ropinirole HCl) 0.25 Mg Tab 0.25 Mg PO HS Zantac (Ranitidine HCl) 300 Mg Tab 300 Mg PO BID Olanzapine 20 Mg Tab 20 Mg PO DAILY Nitrostat SL (Nitroglycerin) 0.4 Mg Subl 0.4 Mg SL DIRECTED PRN 1 tablet under the tongue as needed for chest pain. Repeat every 5 minutes for a total of 3 DOSES or call 911 if NO relief. Vitamin B-12 (Cyanocobalamin) 1,000 Mcg Tab 1,000 Mcg PO DAILY Miralax Powder (Polyethylene Glycol 3350 Powder) 17 Gm Powd 17 Gm PO BID PRN Mix and dissolve one measuring capful (17 grams) in water or juice. Minipress (Prazosin HCl) 2 Mg Cap 7 Mg PO HS Take 1 capsule (2mg) with 5mg capsule for a total dose of 7mg Minipress (Prazosin HCl) 5 Mg Cap 7 Mg PO HS Take 1 capsule (5mg) with 2mg capsule for a total dose of 7mg Metoprolol Tartrate 25 Mg Tab 12.5 Mg PO BID Claritin (Loratadine) 10 Mg Tab 10 Mg PO DAILY Levothyroxine (Levothyroxine Sodium) 25 Mcg Tab 25 Mcg PO DAILY Gaviscon (Aluminum Hydroxide-Mag Trisil) 80-14.2 mg Chew 2 Tab CHEW TIDAC PRN Maximum 16 tabs/24 hrs Folate (Folic Acid) 1 Mg Tab 1 Mg PO EVERY OTHER DAY Prozac (Fluoxetine HCl) 40 Mg Cap 40 Mg PO DAILY Ferrous Sulfate 325 Mg Tab 325 Mg PO BID Nexium (Esomeprazole DR) 40 Mg Capdr 40 Mg PO DAILY Colace (Docusate Sodium) 100 Mg Cap 100 Mg PO BID PRN Vitamin D3 (Cholecalciferol) 2,000 Unit Tab 2,000 Units PO DAILY Fioricet-Codeine (Elfpfkotnw-Qwiqjgqdilwoi-Lkbqhhgj-Codeine) 97-003-54-30 Mg Cap 1 Cap PO TID PRN Do not exceed 6 capsules/day. No more than twice a week. Buspirone (Buspirone HCl) 10 Mg Tab 20 Mg PO TID Symbicort Inh (Budesonide/Formoterol Fumarate) 160-4.5 Mcg/Act Aero 2 Puff INH BID Aspirin Adult Low Strength (Aspirin) 81 Mg Tabdr 81 Mg PO DAILY Albuterol Neb (Albuterol Sulfate) 2.5 Mg/3 Ml Neb 2.5 Mg NEB BID Norvasc (Amlodipine Besylate) 10 Mg Tab 10 Mg PO DAILY Family History Mother: at 81, DM Father: around 86, "chest cancer" Social History Smokes 3/4ppd No alcohol use Denies illicit drug use Lives at home alone in [place] Patient of [place] (Priyank Velez MD R1) Physical Exam Vital Signs Vital Signs Date Time Temp Pulse Resp B/P Pulse Ox O2 Delivery O2 Flow Rate FiO2 08/28/16 10:05 72 18 106/58 98 Room Air 08/28/16 09:25 98 Room Air 08/28/16 09:25 18 98 Room Air 08/28/16 08:48 99.4 99 12 105/59 98 Physical Exam GENERAL: Well nourished, well developed 65 y/o CM lying in bed sleeping prior to interview/exam. SKIN: RUE erythema and swelling from the mid-bicep to digits (erythema outlined with surgical marker). Erythema is circumferential around the extremity and is warm to the touch. No other rash or edema. HEENT: Atraumatic, normocephalic with EOMI. PERRLA. Oropharynx clear without erythema or exudate. Uvula midline with MMM. No rhinorrhea. No palpable LAD. No meningeal signs. CARDIOVASCULAR: Regular rate and rhythm without murmurs, gallops, or rubs. RESPIRATORY: Clear to auscultation. Breath sounds equal bilaterally. No wheezes , rales, or rhonchi. GASTROINTESTINAL: Abdomen soft, non-tender, nondistended with +BS. No masses appreciated. MUSCULOSKELETAL: See above for RUE swelling with erythema. All digits with appropriate strength, sensation, and ROM. Pulses 2+ in all extremities. NEUROLOGICAL: Awake and alert. Cranial nerves II through XII intact. Motor and sensory grossly within normal limits. Normal speech. Laboratory Laboratory Tests Test 08/28/16 09:30 White Blood Count 15.4 Red Blood Count 4.24 Hemoglobin 12.5 Hematocrit 36.9 Mean Corpuscular Volume 87.1 Mean Corpuscular Hemoglobin 29.5 Mean Corpuscular Hemoglobin 33.8 Concent Red Cell Distribution Width 13.9 Platelet Count 200 Mean Platelet Volume 8.8 Neutrophils (%) (Auto) 60.7 Lymphocytes (%) (Auto) 29.9 Monocytes (%) (Auto) 8.2 Eosinophils (%) (Auto) 0.9 Basophils (%) (Auto) 0.3 Neutrophils # (Auto) 9.3 Lymphocytes # (Auto) 4.6 Monocytes # (Auto) 1.3 Eosinophils # (Auto) 0.1 Basophils # (Auto) 0.0 CBC Comment DIFF FINAL Differential Comment Sodium Level 135 Potassium Level 3.5 Chloride Level 98 Carbon Dioxide Level 27.2 Anion Gap 10 Blood Urea Nitrogen 30 Creatinine 1.66 Estimat Glomerular Filtration 42 Rate Random Glucose 125 Lactic Acid Level 1.4 Calcium Level 9.0 Total Bilirubin 0.7 Aspartate Amino Transf 10 (AST/SGOT) Alanine Aminotransferase 16 (ALT/SGPT) Alkaline Phosphatase 119 Total Protein 6.9 Albumin 3.2 Blood Type A POSITIVE Antibody Screen NEGATIVE Date/Time Procedure Status Source Growth 08/28/16 09:35 Aerobic Blood Culture Received Blood Peripheral Pending 08/28/16 09:35 Anaerobic Blood Culture Received Blood Peripheral Pending 08/28/16 09:30 Gram Stain Received Wound Arm Pending 08/28/16 09:30 Wound Culture Received Wound Arm Pending (Priyank Velez MD R1) Result Diagram: 08/28/16 0930 08/28/16 0930 Imaging Last 72 hours Impressions Chest X-Ray 08/28/1622 Signed Impressions: Service Date/Time: Sunday, August 28, 2016 09:27 - CONCLUSION: Linear scarring or atelectasis in the right base. David Keene MD Upper Extremity CT 08/28/16 0000 Signed Impressions: Service Date/Time: Sunday, August 28, 2016 10:41 - CONCLUSION: Extensive cellulitis. No abscess Gilmar Mendoza MD (Priyank Velez MD R1) Assessment and Plan Assessment and Plan Mr. Iyer is a 65 y/o CM with an extensive PMHx presents with RUE swelling and erythema with a purulent wound at the elbow. He admitted to medicine team for a cellulitis of the right upper extremity to be treated with IV antibiotics. Code Status DNR Discussed Condition With Dr. Torres, ER physician Dr. Kobi Lee (Priyank Velez MD R1) Attending Attestation Patient seen and examined. Case reviewed and discussed with the resident team. Agree with plan of care as discussed with me and documented in the resident note. pt seen in ED on admission (Andreia Peace MD) Problem List: (1) Right arm cellulitis Status: Acute Plan: Patient with cellulitis of the right upper extremity from his mid bicep to the digits. Patient with history of MDRO and previously treated for cellulitis in 07/13. Upper extremity CT: Extensive cellulitis, no abscess CBC: WBC 15.4, H/H 12.5/36.9, platelets 200 CMP: Sodium 135, BUN 30, creatinine 1.66, alkaline phosphatase 119 UA: Pending Blood cultures 2: Pending Wound culture: Pending Medications: Vancomycin and Zosyn given in ER Vancomycin 1 g twice a day [place] 7.5 mg when necessary for pain Acetaminophen 500 mg every 4 hours when necessary for fever greater than 101 (2) MALKA (acute kidney injury) Status: Acute Plan: Patient found with BUN of 30 and creatinine 1.66 with ratio of 18. Previously BUN was 20 and creatinine 0.89 on /12/10. Normal saline at 140 mL per hour (MF) Continue to monitor (3) Leukemia Status: Acute Plan: Patient with reported leukemia without specific diagnosis per brief chart review and according to the patient. -Le[facility] diagnosed [facility] per patient -Patient states that he does not want chemotherapy currently (4) COPD (chronic obstructive pulmonary disease) Status: Chronic Plan: Patient with chronic obstructive pulmonary disease Continue albuterol 2.5 mg nebulizers twice a day Symbicort 2 puffs twice a day [place] to 1 puff daily Incentive spirometer (5) HTN (hypertension) Status: Chronic Plan: Patient with current hypertension Metoprolol 12.5 mg twice a day Hydralazine 10 mg every 8 hours for SBP greater than 180, DBP greater than 100 (6) GERD (gastroesophageal reflux disease) Status: Chronic Plan: Patient was gastric reflux disease Hold Nexium Continue Zantac there milligrams twice a day Continue Gaviscon (7) PTSD (post-traumatic stress disorder) Status: Chronic Plan: Patient with PTSD Continue fluoxetine 40 mg daily Continue ropinirole 0.25 mg daily at bedtime Continue olanzapine 20 mg daily Continue buspirone 20 mg 3 times a day (8) Hypothyroid Status: Chronic Plan: Patient with hypothyroidism Continue levothyroxine 25 g daily (9) HLD (hyperlipidemia) Status: Chronic Plan: Patient with hyperlipidemia Continue Lipitor 80 mg daily at bedtime (10) BPH (benign prostatic hyperplasia) Status: Chronic Plan: Patient with chronic BPH Continue prazosin 7 mg daily at bedtime (11) Nutrition, metabolism, and development symptoms Status: Acute Plan: Fluids: Normal saline at 140 mL per hour (MF) Electrolytes: Sodium 135, otherwise within normal limits; continue to monitor Diet: Heart healthy as tolerated Prophylaxis: Aspirin 81 mg daily for cardiac risk, vitamin D3 daily, vitamin B12 daily, iron daily, folic acid daily, loratadine for seasonal allergies, MiraLAX when necessary for constipation, (12) DVT prophylaxis Status: Acute Plan: Heparin 5000 units every 8 hours (Priyank Velez MD R1) Physician Certification 2 Midnight Certification Type: Admission for Inpatient Services Order for Inpatient Services The services are ordered in accordance with Medicare regulations or non- Medicare payer requirements, as applicable. In the case of services not specified as inpatient-only, they are appropriately provided as inpatient services in accordance with the 2-midnight benchmark. Estimated LOS (days): 3 3 days is the estimated time the patient will need to remain in the hospital, assuming treatment plan goals are met and no additional complications. Post-Hospital Plan: Home (Priyank Velez MD R1) Problem Qualifiers (1) Leukemia: Qualified Code: C95.10 - Chronic leukemia, not having achieved remission (2) COPD (chronic obstructive pulmonary disease): Qualified Code: J44.9 - Chronic obstructive pulmonary disease, unspecified COPD type (3) HTN (hypertension): Qualified Code: I10 - Essential hypertension (4) GERD (gastroesophageal reflux disease): Qualified Code: K21.9 - Gastroesophageal reflux disease, esophagitis presence not specified (5) Hypothyroid: Qualified Code: E03.9 - Acquired hypothyroidism (6) BPH (benign prostatic hyperplasia): Qualified Code: N40.0 - Benign prostatic hyperplasia, presence of lower urinary tract symptoms unspecified, unspecified morphology Priyank Velez MD R1 Aug 28, 2016 11:07 Andreia Peace MD Aug 29, 2016 13:43
--- NOTE | 2016-08-28 11:23 | RADRPT ---
EXAM DATE/TIME: 08/28/2016 10:41 [facility] COMPARISON: No previous studies available for comparison. INDICATIONS : Swelling and redness of right forearm IV CONTRAST: 75 cc Omnipaque 350 (iohexol) IV RADIATION DOSE: 13.28 CTDIvol (mGy) MEDICAL HISTORY : Hypertension. Carcinoma, rectal. SURGICAL HISTORY : None. ENCOUNTER: Initial ACUITY: 3 days PAIN SCALE: 5/10 LOCATION: Right forearm TECHNIQUE: Volumetric scanning of the forearm was performed. Using automated exposure control and adjustment of the mA and/or kV according to patient size, radiation dose was kept as low as reasonably achievable to obtain optimal diagnostic quality images. FINDINGS: BONES: No evidence of fracture. Alignment is within normal limits. JOINTS: No evidence of joint narrowing or effusion. SOFT TISSUES: Prominent edematous change in the subcutaneous tissues of the forearm, mainly the dorsal aspect of th e forearm. No evidence of abscess. CONCLUSION: Extensive cellulitis. No abscess Gilmar Mendoza MD on August 28, 2016 at 11:19 Board Certified Radiologist. This report was verified electronically.
[2016-08-28] MEDS ORDERED: SODIUM CHLORIDE 0.9% FLUSH 10 ML FLUSH IV FLUSH PRN (12:00)
[2016-08-28] MEDS ORDERED: DOCUSATE SODIUM 100 MG CAP PO PRN (12:00)
[2016-08-28] MEDS ORDERED: AL HYDR/MG TRIS/ALGIN AC/SOD BIC REG STRENGTH CHEW TAB CHEW PRN (12:00)
[2016-08-28] MEDS ORDERED: POLYETHYLENE GLYCOL 17 GM PKG PO PRN (12:00)
[2016-08-28] MEDS ORDERED: hydrALAZINE HCL 10 MG TAB PO PRN (12:00)
[2016-08-28] MEDS ORDERED: ACETAMINOPHEN 500 MG CPLT PO PRN (12:00)
[2016-08-28] MEDS ORDERED: VANCOMYCIN INJ 1,000 MG in SODIUM CHLOR 0.9% 250 ML INJ 250 ML IV ONE (13:00)
[2016-08-28] MEDS: [UNRECOGNIZED DRUG - OTHER] PO SCH ×2 (13:00→18:00)
[2016-08-28] MEDS: ACETAMINOPHEN/HYDROcodone 325 MG/7.5 MG TAB PO PRN ×3 (13:16→22:09)
[2016-08-28] MEDS: FAMOTIDINE 20 MG TAB PO SCH ×2 (13:16→20:50)
[2016-08-28] MEDS: busPIRone HCL 10 MG TAB PO SCH ×2 (13:16→17:41)
[2016-08-28] MEDS: FERROUS SULFATE 325 MG (65 MG ELEMENTAL IRON) TAB PO SCH (20:50)
[2016-08-28] MEDS: PRAZOSIN HCL 2 MG CAP PO SCH (20:50)
[2016-08-28] MEDS: DOCUSATE SODIUM 100 MG CAP PO SCH (20:50)
[2016-08-28] MEDS: ATORVASTATIN 80 MG TAB PO SCH (20:50)
[2016-08-28] MEDS: METOPROLOL TARTRATE 25 MG TAB PO SCH (20:51)
[2016-08-28] MEDS: SODIUM CHLOR 0.9% 1000 ML INJ 1,000 ML IV SCH (20:51)
[2016-08-28] MEDS: PRAZOSIN HCL 5 MG CAP PO SCH (20:51)
[2016-08-28] MEDS: VANCOMYCIN INJ 1,000 MG in SODIUM CHLOR 0.9% 250 ML INJ 250 ML IV SCH (20:51)
[2016-08-28] MEDS: SODIUM CHLORIDE 0.9% FLUSH 10 ML FLUSH IV FLUSH SCH (20:52)
[2016-08-28] MEDS ORDERED: PRAZOSIN HCL 2 MG CAP PO SCH (21:00)
[2016-08-28] MEDS ORDERED: PRAZOSIN HCL 5 MG CAP PO SCH (21:00)
[2016-08-28] MEDS: RESP: ALBUTEROL 2.5 MG/3 ML NEB (SCH) INH (21:13)
[2016-08-28] MEDS: BUDESONIDE-FORMOTEROL 160/4.5 MCG INHALER INH SCH (22:07)
[2016-08-29 00:07] VITALS: BP 100/51; PULSE 92; RESP 18; TEMP 100.8; O2SAT 93
[2016-08-29] MEDS: SODIUM CHLOR 0.9% 1000 ML INJ 1,000 ML IV SCH ×4 (03:09→21:16)
[2016-08-29 04:40] VITALS: BP 118/58; PULSE 85; RESP 18; TEMP 98.2; O2SAT 91
[2016-08-29] MEDS: LEVOTHYROXINE SODIUM 25 MCG TAB PO SCH (04:59)
[2016-08-29] MEDS: ACETAMINOPHEN/HYDROcodone 325 MG/7.5 MG TAB PO PRN ×4 (04:59→21:21)
[2016-08-29 05:46] LABS: AUTOMATED NEUTROPHIL # 8.2 TH/MM3 (1.8-7.7); BASOPHIL % 0.1 % (0.0-2.0); EOSINOPHIL # 0.1 TH/MM3 (0-0.4); EOSINOPHIL % 0.5 % (0.0-4.0); HEMATOCRIT 34.4 % (39.0-51.0); HEMO FLAGS DIFF FINAL; LYMPHOCYTE # 4.6 TH/MM3 (1.0-4.8); MEAN CELL VOLUME 87.8 FL (80.0-100.0); MEAN CORPUSCULAR HEMOGLOBIN 28.2 PG (27.0-34.0); MEAN CORPUSCULAR HGB CONC 32.2 % (32.0-36.0); MONO % 10.1 % (0.0-8.0); NEUT % 57.3 % (16.0-70.0); PLATELET COUNT 182 TH/MM3 (150-450); RED BLOOD COUNT 3.92 MIL/MM3 (4.50-5.90); RED CELL DISTRIBUTION WIDTH 13.9 % (11.6-17.2); WHITE BLOOD COUNT 14.3 TH/MM3 (4.0-11.0)
[2016-08-29 06:09] LABS: BICARBONATE 25.9 MEQ/L (21.0-32.0); POTASSIUM 3.6 MEQ/L (3.5-5.1)
[2016-08-29 08:00] VITALS: BP 100/53; PULSE 82; RESP 14; TEMP 98.1; O2SAT 92
[2016-08-29] MEDS: RESP: ALBUTEROL 2.5 MG/3 ML NEB (SCH) INH (08:00)
[2016-08-29] MEDS: CHOLECALCIFEROL (VIT D3) 1000 UNIT TAB PO SCH (09:00)
[2016-08-29] MEDS: TIOTROPIUM BROMIDE 18 MCG INH INH SCH (09:00)
[2016-08-29] MEDS: SODIUM CHLORIDE 0.9% FLUSH 10 ML FLUSH IV FLUSH SCH ×2 (09:00→21:00)
[2016-08-29] MEDS: [UNRECOGNIZED DRUG - OTHER] PO SCH ×3 (09:00→17:37)
[2016-08-29] MEDS: METOPROLOL TARTRATE 25 MG TAB PO SCH ×2 (09:00→21:14)
[2016-08-29] MEDS: BUDESONIDE-FORMOTEROL 160/4.5 MCG INHALER INH SCH ×2 (09:21→21:16)
[2016-08-29] MEDS: FAMOTIDINE 20 MG TAB PO SCH ×2 (09:21→21:13)
[2016-08-29] MEDS: DOCUSATE SODIUM 100 MG CAP PO SCH ×2 (09:21→21:13)
[2016-08-29] MEDS: FLUoxetine HCL 20 MG CAP PO SCH (09:22)
[2016-08-29] MEDS: ASPIRIN EC 81 MG TABEC PO SCH (09:22)
[2016-08-29] MEDS: FERROUS SULFATE 325 MG (65 MG ELEMENTAL IRON) TAB PO SCH ×2 (09:22→21:13)
[2016-08-29] MEDS: CYANOCOBALAMIN 1,000 MCG TAB PO SCH (09:22)
[2016-08-29] MEDS: LORATADINE 10 MG TAB PO SCH (09:22)
[2016-08-29] MEDS: busPIRone HCL 10 MG TAB PO SCH ×3 (09:22→17:16)
[2016-08-29] MEDS: OLANZapine 10 MG TAB PO SCH (09:22)
[2016-08-29] MEDS: VANCOMYCIN INJ 1,000 MG in SODIUM CHLOR 0.9% 250 ML INJ 250 ML IV SCH (09:23)
[2016-08-29] MEDS: HEPARIN SODIUM - SQ 10,000 UNITS/ML VIAL SQ SCH ×2 (09:24→17:16)
[2016-08-29] MEDS ORDERED: PNEUMOCOCCAL POLYVALENT INJ 25 MCG/0.5 ML SYR IM ONE (10:00)
--- NOTE | 2016-08-29 12:37 | HHI.HP ---
[facility] Service Family Medicine Primary Care Physician [facility] Admission Diagnosis SIRS, right forearm cellulitis Diagnoses: (1) Right arm cellulitis Diagnosis: Principal (2) MALKA (acute kidney injury) Diagnosis: Principal (3) Leukemia Diagnosis: Principal (4) COPD (chronic obstructive pulmonary disease) Diagnosis: Principal (5) HTN (hypertension) Diagnosis: Principal (6) GERD (gastroesophageal reflux disease) Diagnosis: Principal (7) PTSD (post-traumatic stress disorder) Diagnosis: Principal (8) Hypothyroid Diagnosis: Principal (9) HLD (hyperlipidemia) Diagnosis: Principal (10) BPH (benign prostatic hyperplasia) Diagnosis: Principal (11) Nutrition, metabolism, and development symptoms Diagnosis: Principal (12) DVT prophylaxis Diagnosis: Principal International Travel<30 Days: No Contact w/Intl Traveler<30days: No Known Affected Area: No History of Present Illness Mr. Iyer is a 65 y/o CM with an extensive PMHx who presented with RUE swelling and erythema with a purulent wound at the elbow. He states that on he was seen at [facility] for MRSA infection of the LLE and the LUE with similar swelling and erythema. He was discharged from the ER with Bactrim for 10 days and was compliant. He states that the swelling and erythema resolved, but has now come back in his RUE. He presented with 48 hours of RUE swelling and erythema from the mid-bicep to the digits. He endorses subjective fevers with chills since being seen on 06/29/16. He states that this episode is different in that the swelling is more "solid" and has a purulent wound at the olecranon. He denies any trauma to the extremity, but does state that he noticed a small swelling on the 3rd digit that he lanced with a needle at his home. He has good sensation and circulation throughout the extremity with appropriate strength and ROM. Otherwise he has no complaints and denies any chest pain, shortness of breath, NVD, or calf tenderness. [facility]. He reports that he was told to have [facility] for his chronic leukemia but declined. 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 Hospice was discussed but he is doing well so far at home taking care of himself and does not want this now but would be open to this in the future depending on his illness and debility. Review of Systems Other Constitutional: COMPLAINS OF: Fever (subjective), Chills Endocrine: DENIES: Polyuria Eyes: DENIES: Double Vision Ears, nose, mouth, throat: DENIES: Throat pain, Running Nose Respiratory: DENIES: Cough, Shortness of breath Cardiovascular: DENIES: Chest pain Gastrointestinal: DENIES: Abdominal pain, Diarrhea, Nausea, Vomiting Genitourinary: DENIES: Dysuria Musculoskeletal: DENIES: Joint pain Integumentary: DENIES: Rash Hematologic/lymphatic: COMPLAINS OF: Lymphadenopathy Immunologic/allergic: DENIES: Urticaria Neurologic: COMPLAINS OF: Headache Psychiatric: DENIES: Mood changes Past Family Social History Past Medical History -Leukemia, appointment on 09/01 with Oncology, diagnosed perhaps in 2013 -HTN -Dyslipidemia -Rectal cancer, per chart review, pt denies -BPH -Hypothyroidism -GERD -Mild to moderate nonobstructive coronary artery disease -COPD -PTSD -History of PE Past Surgical History Tonsillectomy Right shoulder surgery Carpal tunnel surgery, right hand Allergies: Coded Allergies: *MDRO Multi-Drug Resistant Organism (Verified Adverse Reaction, Unknown, ) MRSA (finger)-06/29/16 Family History Mother: at 81, DM Father: around 86, "chest cancer" Social History Smokes 3/4ppd No alcohol use Denies illicit drug use Lives at home alone in [place] Patient of [place] Physical Exam Vital Signs Vital Signs Date Time Temp Pulse Resp B/P Pulse Ox O2 Delivery O2 Flow Rate FiO2 08/29/16 10:20 18 08/29/16 08:00 98.1 82 14 100/53 92 08/29/16 04:40 98.2 85 18 118/58 91 08/29/16 00:07 100.8 92 18 100/51 93 08/28/16 20:13 100.7 91 20 119/56 92 08/28/16 16:00 97.5 81 16 102/53 95 08/28/16 13:19 97.7 76 18 96/52 96 08/28/16 13:15 97.7 77 18 69/52 96 Room Air Physical Exam GENERAL: Well nourished, well developed 65 y/o CM lying in bed sleeping prior to interview/exam. SKIN: RUE erythema and swelling from the mid-bicep to digits (erythema outlined with surgical marker). Erythema is circumferential around the extremity and is warm to the touch. No other rash or edema. Today, his arm is still erythematous and warm to the touch and the leading edge is slightly beyond the marked area from yesterday but there has not been extensive spread or increase in area. He appears to have multiple areas of superficial slight fluctuance involving different areas of the arm but no huge specific drainable abscesses as yet. compared with yesterday, he is not much better nor worse though the original areas of drainage have stopped draining. He can move his fingers and has good sensation HEENT: Atraumatic, normocephalic with EOMI. PERRLA. Oropharynx clear without erythema or exudate. Uvula midline with MMM. No rhinorrhea. No palpable LAD. No meningeal signs. CARDIOVASCULAR: Regular rate and rhythm without murmurs, gallops, or rubs. RESPIRATORY: Clear to auscultation. Breath sounds equal bilaterally. No wheezes , rales, or rhonchi. GASTROINTESTINAL: Abdomen soft, non-tender, nondistended with +BS. No masses appreciated. MUSCULOSKELETAL: See above for RUE swelling with erythema. All digits with appropriate strength, sensation, and ROM. Pulses 2+ in all extremities. NEUROLOGICAL: Awake and alert. Cranial nerves II through XII intact. Motor and sensory grossly within normal limits. Normal speech. Laboratory Laboratory Tests Test 08/29/16 05:21 White Blood Count 14.3 Red Blood Count 3.92 Hemoglobin 11.1 Hematocrit 34.4 Mean Corpuscular Volume 87.8 Mean Corpuscular Hemoglobin 28.2 Mean Corpuscular Hemoglobin 32.2 Concent Red Cell Distribution Width 13.9 Platelet Count 182 Mean Platelet Volume 8.4 Neutrophils (%) (Auto) 57.3 Lymphocytes (%) (Auto) 32.0 Monocytes (%) (Auto) 10.1 Eosinophils (%) (Auto) 0.5 Basophils (%) (Auto) 0.1 Neutrophils # (Auto) 8.2 Lymphocytes # (Auto) 4.6 Monocytes # (Auto) 1.4 Eosinophils # (Auto) 0.1 Basophils # (Auto) 0.0 CBC Comment DIFF FINAL Differential Comment Erythrocyte Sedimentation Rate 45 Sodium Level 135 Potassium Level 3.6 Chloride Level 100 Carbon Dioxide Level 25.9 Anion Gap 9 Blood Urea Nitrogen 20 Creatinine 1.17 Estimat Glomerular Filtration 62 Rate Random Glucose 118 Calcium Level 8.3 Date/Time Procedure Status Source Growth 08/28/16 09:35 Aerobic Blood Culture - Preliminary Resulted Blood Peripheral NO GROWTH IN 1 DAY 08/28/16 09:35 Anaerobic Blood Culture - Preliminary Resulted Blood Peripheral NO GROWTH IN 1 DAY 08/28/16 09:30 Gram Stain - Final Resulted Wound Arm 08/28/16 09:30 Wound Culture Resulted Wound Arm Pending Result Diagram: 08/29/16 0508/29/16 05 Imaging Last 72 hours Impressions Chest X-Ray 08/28/16921 Signed Impressions: Service Date/Time: Sunday, August 28, 2016 09:27 - CONCLUSION: Linear scarring or atelectasis in the right base. David Keene MD Upper Extremity CT 08/28/16 0000 Signed Impressions: Service Date/Time: Sunday, August 28, 2016 10:41 - CONCLUSION: Extensive cellulitis. No abscess Gilmar Mendoza MD Septic Shock Reassessment Heart: Regular rate and rhythm Lungs: Crackles Skin: Warm, [place] Capillary Refill: Brisk Assessment and Plan Assessment and Plan Mr. Iyer is a 65 y/o CM with an extensive PMHx presented with RUE swelling and erythema with a purulent wound at the elbow. He admitted to medicine team for a cellulitis of the right upper extremity to be treated with IV antibiotics. Problem List: (1) Right arm cellulitis Status: Acute Plan: Patient with cellulitis of the right upper extremity from his mid bicep to the digits. Patient with history of MDRO and previously treated for cellulitis in 07/13. Upper extremity CT: Extensive cellulitis, no abscess CBC: WBC 15.4, H/H 12.5/36.9, platelets 200 CMP: Sodium 135, BUN 30, creatinine 1.66, alkaline phosphatase 119 UA: Pending Blood cultures 2: Pending Wound culture: Pending, suspect staph with his draining abscess Medications: Vancomycin and Zosyn given in ER Vancomycin 1 g twice a day [place] 7.5 mg when necessary for pain Acetaminophen 500 mg every 4 hours when necessary for fever greater than 101 (2) MALKA (acute kidney injury) Status: Acute Plan: Patient found with BUN of 30 and creatinine 1.66 with ratio of 18. Previously BUN was 20 and creatinine 0.89 on . Normal saline at 140 mL per hour (MF) Continue to monitor (3) Leukemia Status: Acute Plan: Patient with reported leukemia without specific diagnosis per brief chart review and according to the patient. -Leukemia, appointment on 09/01 with [facility], diagnosed recently per patient ( or perhaps diagnosed in 2013 per pts chart but pt not informed until recently) -Patient states that he does not want chemotherapy currently -will continue with chart review and hope for records from [place]. His leukemia can make him immunocompromised to some extent as well as possibly giving him fevers , etc -he reported significant weight loss but now stability (4) COPD (chronic obstructive pulmonary disease) Status: Chronic Plan: Patient with chronic obstructive pulmonary disease Continue albuterol 2.5 mg nebulizers twice a day Symbicort 2 puffs twice a day [place] to 1 puff daily Incentive spirometer (5) HTN (hypertension) Status: Chronic Plan: Patient with current hypertension Metoprolol 12.5 mg twice a day Hydralazine 10 mg every 8 hours for SBP greater than 180, DBP greater than 100 (6) GERD (gastroesophageal reflux disease) Status: Chronic Plan: Patient was gastric reflux disease Hold Nexium Continue Zantac there milligrams twice a day Continue Gaviscon (7) PTSD (post-traumatic stress disorder) Status: Chronic Plan: Patient with PTSD Continue fluoxetine 40 mg daily Continue ropinirole 0.25 mg daily at bedtime Continue olanzapine 20 mg daily Continue buspirone 20 mg 3 times a day (8) Hypothyroid Status: Chronic Plan: Patient with hypothyroidism Continue levothyroxine 25 g daily (9) HLD (hyperlipidemia) Status: Chronic Plan: Patient with hyperlipidemia Continue Lipitor 80 mg daily at bedtime (10) BPH (benign prostatic hyperplasia) Status: Chronic Plan: Patient with chronic BPH Continue prazosin 7 mg daily at bedtime (11) Nutrition, metabolism, and development symptoms Status: Acute Plan: Fluids: Normal saline at 140 mL per hour (MF) Electrolytes: Sodium 135, otherwise within normal limits; continue to monitor Diet: Heart healthy as tolerated Prophylaxis: Aspirin 81 mg daily for cardiac risk, vitamin D3 daily, vitamin B12 daily, iron daily, folic acid daily, loratadine for seasonal allergies, MiraLAX when necessary for constipation, (12) DVT prophylaxis Status: Acute Plan: Heparin 5000 units every 8 hours Physician Certification 2 Midnight Certification Type: Admission for Inpatient Services Order for Inpatient Services The services are ordered in accordance with Medicare regulations or non- Medicare payer requirements, as applicable. In the case of services not specified as inpatient-only, they are appropriately provided as inpatient services in accordance with the 2-midnight benchmark. Estimated LOS (days): 3 3 days is the estimated time the patient will need to remain in the hospital, assuming treatment plan goals are met and no additional complications. Post-Hospital Plan: Home Problem Qualifiers (1) Leukemia: Qualified Code: C95.10 - Chronic leukemia, not having achieved remission (2) COPD (chronic obstructive pulmonary disease): Qualified Code: J44.9 - Chronic obstructive pulmonary disease, unspecified COPD type (3) HTN (hypertension): Qualified Code: I10 - Essential hypertension (4) GERD (gastroesophageal reflux disease): Qualified Code: K21.9 - Gastroesophageal reflux disease, esophagitis presence not specified (5) Hypothyroid: Qualified Code: E03.9 - Acquired hypothyroidism (6) BPH (benign prostatic hyperplasia): Qualified Code: N40.0 - Benign prostatic hyperplasia, presence of lower urinary tract symptoms unspecified, unspecified morphology Andreia Peace MD Aug 29, 2016 12:37
[2016-08-29 12:59] VITALS: BP 108/61; PULSE 83; RESP 12; TEMP 96.2; O2SAT 92
[2016-08-29 16:00] VITALS: BP 115/58; PULSE 87; RESP 12; TEMP 96.7; O2SAT 95
[2016-08-29] MEDS ORDERED: Vancomycin Consult Pharmacy 1 EA OTHER SCH (17:30)
[2016-08-29 20:00] VITALS: BP 128/60; PULSE 82; RESP 21; TEMP 98.9; O2SAT 95
[2016-08-29] MEDS: PRAZOSIN HCL 2 MG CAP PO SCH (21:13)
[2016-08-29] MEDS: VANCOMYCIN INJ 1,250 MG in SODIUM CHLOR 0.9% 250 ML INJ 250 ML IV SCH (21:13)
[2016-08-29] MEDS: ATORVASTATIN 80 MG TAB PO SCH (21:13)
[2016-08-29] MEDS: PIPERACIL-TAZO 3.375 GM PREMIX 50 ML IV SCH (21:13)
[2016-08-29] MEDS: PRAZOSIN HCL 5 MG CAP PO SCH (21:13)
[2016-08-30] VITALS: BP 105/54; PULSE 82; RESP 20; TEMP 98.4; O2SAT 95
[2016-08-30] MEDS: HEPARIN SODIUM - SQ 10,000 UNITS/ML VIAL SQ SCH ×3 (01:16→16:07)
[2016-08-30] MEDS: ACETAMINOPHEN/HYDROcodone 325 MG/7.5 MG TAB PO PRN ×3 (01:16→20:22)
[2016-08-30] MEDS: PIPERACIL-TAZO 3.375 GM PREMIX 50 ML IV SCH ×4 (02:17→20:23)
[2016-08-30 04:33] LABS: BASOPHIL % 0.2 % (0.0-2.0); EOSINOPHIL # 0.2 TH/MM3 (0-0.4); EOSINOPHIL % 1.7 % (0.0-4.0); HEMATOCRIT 30.7 % (39.0-51.0); LYMPH % 41.5 % (9.0-44.0); LYMPHOCYTE # 5.9 TH/MM3 (1.0-4.8); MEAN CELL VOLUME 86.8 FL (80.0-100.0); MEAN CORPUSCULAR HGB CONC 33.4 % (32.0-36.0); MONO % 7.4 % (0.0-8.0); NEUT % 49.2 % (16.0-70.0); PLATELET COUNT 191 TH/MM3 (150-450); RED BLOOD COUNT 3.53 MIL/MM3 (4.50-5.90); WHITE BLOOD COUNT 14.1 TH/MM3 (4.0-11.0)
[2016-08-30 04:50] LABS: HEMO FLAGS AUTO DIFF
[2016-08-30 05:00] LABS: BICARBONATE 23.1 MEQ/L (21.0-32.0); POTASSIUM 3.6 MEQ/L (3.5-5.1)
[2016-08-30] MEDS: LEVOTHYROXINE SODIUM 25 MCG TAB PO SCH (05:18)
[2016-08-30 06:05] LABS: PLATELET ESTIMATE SMEAR NORMAL (NORMAL); PLATELET MORPHOLOGY NORMAL (NORMAL); SCAN/DIFF AUTO DIFF CONFIRMED
[2016-08-30 06:08] LABS: WESTERGREN SEDIMENTATION RATE 66 mm/hr (0-20)
[2016-08-30 08:00] VITALS: BP 104/51; PULSE 78; RESP 18; TEMP 97.6; O2SAT 92
[2016-08-30] MEDS: METOPROLOL TARTRATE 25 MG TAB PO SCH ×2 (09:00→20:22)
[2016-08-30] MEDS: TIOTROPIUM BROMIDE 18 MCG INH INH SCH (09:00)
[2016-08-30] MEDS: [UNRECOGNIZED DRUG - OTHER] PO SCH ×3 (09:00→16:07)
[2016-08-30] MEDS: SODIUM CHLORIDE 0.9% FLUSH 10 ML FLUSH IV FLUSH SCH ×2 (09:00→20:23)
[2016-08-30] MEDS: FOLIC ACID 1 MG TAB PO SCH (10:19)
[2016-08-30] MEDS: busPIRone HCL 10 MG TAB PO SCH ×3 (10:19→19:00)
[2016-08-30] MEDS: ASPIRIN EC 81 MG TABEC PO SCH (10:20)
[2016-08-30] MEDS: OLANZapine 10 MG TAB PO SCH (10:20)
[2016-08-30] MEDS: DOCUSATE SODIUM 100 MG CAP PO SCH ×2 (10:20→20:21)
[2016-08-30] MEDS: CYANOCOBALAMIN 1,000 MCG TAB PO SCH (10:20)
[2016-08-30] MEDS: FAMOTIDINE 20 MG TAB PO SCH ×2 (10:20→20:22)
[2016-08-30] MEDS: CHOLECALCIFEROL (VIT D3) 1000 UNIT TAB PO SCH (10:20)
[2016-08-30] MEDS: FLUoxetine HCL 20 MG CAP PO SCH (10:21)
[2016-08-30] MEDS: FERROUS SULFATE 325 MG (65 MG ELEMENTAL IRON) TAB PO SCH ×2 (10:21→20:21)
[2016-08-30] MEDS: LORATADINE 10 MG TAB PO SCH (10:21)
[2016-08-30] MEDS: BUDESONIDE-FORMOTEROL 160/4.5 MCG INHALER INH SCH ×2 (10:25→20:36)
[2016-08-30] MEDS: VANCOMYCIN INJ 1,250 MG in SODIUM CHLOR 0.9% 250 ML INJ 250 ML IV SCH ×2 (11:55→22:43)
[2016-08-30] MEDS: SODIUM CHLOR 0.9% 1000 ML INJ 1,000 ML IV SCH ×3 (11:56→23:58)
[2016-08-30 12:00] VITALS: BP 109/59; PULSE 75; RESP 17; TEMP 97.9; O2SAT 94
[2016-08-30 16:00] VITALS: BP 105/68; PULSE 84; RESP 18; TEMP 96.9; O2SAT 93
--- NOTE | 2016-08-30 17:06 | HHI.FPPN ---
Subjective Remarks Patient seen and examined this morning. No acute events overnight with vital signs stable. Patient reports that his arm feels less "tense" than at admission , but does think the erythema has worsened. When asked if he has been using his K thermia that he states that he did not know how to use it, but he will today. Otherwise he has no complaints and denies any fevers, chills, SOB, chest pain, NVD, or calf tenderness. (Priyank Velez MD R1) Objective Vitals Vital Signs Date Time Temp Pulse Resp B/P Pulse Ox O2 Delivery O2 Flow Rate FiO2 08/30/16 16:00 96.9 84 18 105/68 93 08/30/16 12:00 97.9 75 17 109/59 94 08/30/16 08:00 97.6 78 18 104/51 92 08/30/16 00:00 98.4 82 20 105/54 95 08/29/16 20:00 98.9 82 21 128/60 95 I/O 08/29/16 08/29/16 08/29/16 08/30/16 08/30/16 08/30/16 07:00 15:00 23:00 07:00 15:00 23:00 Intake Total 1629 ml 1490 ml 1380 ml 1326 ml 1142 ml Output Total 900 ml 400 ml 1000 ml 900 ml 600 ml Balance 729 ml 1090 ml 380 ml 426 ml 542 ml Intake Oral 480 ml 240 ml 480 ml 480 ml 360 ml IV Total 1149 ml 1250 ml 900 ml 846 ml 782 ml Output Urine Total 900 ml 400 ml 1000 ml 900 ml 600 ml # Bowel Movements 0 0 (Priyank Velez MD R1) Result Diagram: 08/30/16 0413 08/30/16 041 Objective Remarks Gen.: 65-year-old male lying in bed watching TV in no acute distress. Cardiac: Regular rate and rhythm with no MGR appreciated Pulmonary: Clear to auscultation bilaterally with no CRW. No increased work of breathing Abdominal: Soft, nontender with positive bowel sounds. No masses appreciated. MSK: No cyanosis or edema. RUE: Right upper extremity with erythema to the mid bicep from the digits ( outlined with surgical marker). Erythema is circumferential around the extremity. Patient starting to form multiple fluctuant abscesses that are beginning to weep. One open abscess that is draining mucopurulent fluid. Extremities warm to touch. Extremity neurovascularly intact. Neuro: Awake alert and oriented. No gross deformities with normal speech. ( Priyank Velez MD R1) A/P Assessment and Plan Mr. Iyer is a 65 y/o CM with an extensive PMHx presented with RUE swelling and erythema with a purulent wound at the elbow. He admitted to medicine team for a cellulitis of the right upper extremity to be treated with IV antibiotics. Discharge Planning Pending clinical improvement. SDW: Dr. Jean Claude Lee DW: Dr. Peace (Priyank Velez MD R1) Attending Attestation Patient seen and examined. Case reviewed and discussed with the resident team. Agree with plan of care as discussed with me and documented in the resident note. (Andreia Peace MD) Problem List: (1) Right arm cellulitis Status: Acute Plan: Patient with cellulitis of the right upper extremity from his mid bicep to the digits. Patient with history of MDRO and previously treated for cellulitis in 07/13. Upper extremity CT: Extensive cellulitis, no abscess CBC: WBC 15.4, H/H 12.5/36.9, platelets 200 CMP: Sodium 135, BUN 30, creatinine 1.66, alkaline phosphatase 119 UA: Pending Blood cultures 2: Negative to date Wound culture: MRSA resistant to multiple antibiotics, Klebsiella pneumonitis and oxytoca (both pansensitive); All species sensitive to Levofloxacin, Tetracycline, and Bactrim. * Team will plan for 14 days of treatment as this is a repeat MRSA infection. Continue with IV ABX. Transition to PO Doxycycline, Bactrim, or Levaquin at discharge depending on clinical picture at discharge. Medications: Vancomycin and Zosyn given in ER Vancomycin 1 g twice a day (08/28- ) Zosyn 3.375 g every 6 hours (08/29- ) [place] 7.5 mg when necessary for pain Acetaminophen 500 mg every 4 hours when necessary for fever greater than 101 (2) MALKA (acute kidney injury) Status: Acute Plan: Patient found with BUN of 30 and creatinine 1.66 with ratio of 18. Previously BUN was 20 and creatinine 0.89 on /12/10. Normal saline at 100 mL per hour (MF) as creatinine has improved. Continue to monitor (3) Leukemia Status: Acute Plan: Patient with reported leukemia without specific diagnosis per brief chart review and according to the patient. -Leukemia, appointment on 09/01 with [facility], diagnosed recently per patient ( or perhaps diagnosed in 2013 per pts chart but pt not informed until recently) -Patient states that he does not want chemotherapy currently -Will continue with chart review and request for records from [place]. His leukemia can make him immunocompromised to some extent as well as possibly giving him fevers, etc -He reported significant weight loss, but now stable (4) COPD (chronic obstructive pulmonary disease) Status: Chronic Plan: Patient with chronic obstructive pulmonary disease Continue albuterol 2.5 mg nebulizers twice a day Symbicort 2 puffs twice a day [place] to 1 puff daily Incentive spirometer (5) HTN (hypertension) Status: Chronic Plan: Patient with current hypertension Metoprolol 12.5 mg twice a day Hydralazine 10 mg every 8 hours for SBP greater than 180, DBP greater than 100 (6) GERD (gastroesophageal reflux disease) Status: Chronic Plan: Patient was gastric reflux disease Hold Nexium Continue Zantac there milligrams twice a day Continue Gaviscon (7) PTSD (post-traumatic stress disorder) Status: Chronic Plan: Patient with PTSD Continue fluoxetine 40 mg daily Continue ropinirole 0.25 mg daily at bedtime Continue olanzapine 20 mg daily Continue buspirone 20 mg 3 times a day (8) Hypothyroid Status: Chronic Plan: Patient with hypothyroidism Continue levothyroxine 25 g daily (9) HLD (hyperlipidemia) Status: Chronic Plan: Patient with hyperlipidemia Continue Lipitor 80 mg daily at bedtime (10) BPH (benign prostatic hyperplasia) Status: Chronic Plan: Patient with chronic BPH Continue prazosin 7 mg daily at bedtime (11) Nutrition, metabolism, and development symptoms Status: Acute Plan: Fluids: Normal saline at 100 mL per hour Electrolytes: Sodium 135, otherwise within normal limits; continue to monitor Diet: Heart healthy as tolerated Prophylaxis: Aspirin 81 mg daily for cardiac risk, vitamin D3 daily, vitamin B12 daily, iron daily, folic acid daily, loratadine for seasonal allergies, MiraLAX when necessary for constipation, (12) DVT prophylaxis Status: Acute Plan: Heparin 5000 units every 8 hours (Priyank Velez MD R1) Problem Qualifiers (1) Leukemia: (2) COPD (chronic obstructive pulmonary disease): Qualified Code: J44.9 - Chronic obstructive pulmonary disease, unspecified COPD type (3) HTN (hypertension): Qualified Code: I10 - Essential hypertension (4) GERD (gastroesophageal reflux disease): Qualified Code: K21.9 - Gastroesophageal reflux disease, esophagitis presence not specified (5) Hypothyroid: Qualified Code: E03.9 - Acquired hypothyroidism (6) BPH (benign prostatic hyperplasia): Qualified Code: N40.0 - Benign prostatic hyperplasia, presence of lower urinary tract symptoms unspecified, unspecified morphology Priyank Velez MD R1 Aug 30, 2016 17:06 Andreia Peace MD Sep 05, 2016 12:30
[2016-08-30 20:00] VITALS: BP 127/67; PULSE 86; RESP 20; TEMP 97.2; O2SAT 96
[2016-08-30] MEDS: PRAZOSIN HCL 5 MG CAP PO SCH (20:22)
[2016-08-30] MEDS: ATORVASTATIN 80 MG TAB PO SCH (20:22)
[2016-08-30] MEDS: PRAZOSIN HCL 2 MG CAP PO SCH (20:22)
[2016-08-30] MEDS ORDERED: PHARMACY ORDERED LAB ONE (20:45)
[2016-08-31] VITALS: BP 99/57; PULSE 71; RESP 22; TEMP 97.3; O2SAT 94
[2016-08-31] MEDS: ACETAMINOPHEN/HYDROcodone 325 MG/7.5 MG TAB PO PRN ×5 (00:04→20:51)
[2016-08-31] MEDS: HEPARIN SODIUM - SQ 10,000 UNITS/ML VIAL SQ SCH ×3 (00:04→17:04)
[2016-08-31] MEDS: PIPERACIL-TAZO 3.375 GM PREMIX 50 ML IV SCH (03:09)
[2016-08-31] MEDS: LEVOTHYROXINE SODIUM 25 MCG TAB PO SCH (04:39)
[2016-08-31 08:00] VITALS: BP 113/66; PULSE 66; RESP 16; TEMP 96.8; O2SAT 97
[2016-08-31] MEDS ORDERED: PHARMACY ORDERED LAB ONE (08:45)
[2016-08-31] MEDS: [UNRECOGNIZED DRUG - OTHER] PO SCH ×3 (09:00→17:04)
[2016-08-31] MEDS: TIOTROPIUM BROMIDE 18 MCG INH INH SCH (09:00)
[2016-08-31] MEDS: BUDESONIDE-FORMOTEROL 160/4.5 MCG INHALER INH SCH ×2 (09:00→21:00)
[2016-08-31 10:16] LABS: AUTOMATED NEUTROPHIL # 5.5 TH/MM3 (1.8-7.7); BASOPHIL % 0.2 % (0.0-2.0); EOSINOPHIL # 0.2 TH/MM3 (0-0.4); EOSINOPHIL % 1.6 % (0.0-4.0); HEMATOCRIT 31.1 % (39.0-51.0); LYMPH % 49.2 % (9.0-44.0); LYMPHOCYTE # 6.3 TH/MM3 (1.0-4.8); MEAN CELL VOLUME 87.7 FL (80.0-100.0); MEAN CORPUSCULAR HEMOGLOBIN 28.1 PG (27.0-34.0); MONO % 6.2 % (0.0-8.0); NEUT % 42.8 % (16.0-70.0); PLATELET COUNT 204 TH/MM3 (150-450); RED BLOOD COUNT 3.55 MIL/MM3 (4.50-5.90); RED CELL DISTRIBUTION WIDTH 14.3 % (11.6-17.2); WHITE BLOOD COUNT 12.8 TH/MM3 (4.0-11.0)
[2016-08-31 10:25] LABS: HEMO FLAGS AUTO DIFF
[2016-08-31 10:47] LABS: BICARBONATE 25.6 MEQ/L (21.0-32.0)
[2016-08-31 10:48] LABS: POTASSIUM 3.6 MEQ/L (3.5-5.1)
[2016-08-31] MEDS: FLUoxetine HCL 20 MG CAP PO SCH (10:52)
[2016-08-31] MEDS: OLANZapine 10 MG TAB PO SCH (10:52)
[2016-08-31] MEDS: LORATADINE 10 MG TAB PO SCH (10:53)
[2016-08-31] MEDS: busPIRone HCL 10 MG TAB PO SCH ×3 (10:53→17:04)
[2016-08-31] MEDS: CHOLECALCIFEROL (VIT D3) 1000 UNIT TAB PO SCH (10:53)
[2016-08-31] MEDS: ASPIRIN EC 81 MG TABEC PO SCH (10:53)
[2016-08-31] MEDS: DOCUSATE SODIUM 100 MG CAP PO SCH ×2 (10:53→20:48)
[2016-08-31] MEDS: METOPROLOL TARTRATE 25 MG TAB PO SCH ×2 (10:54→20:48)
[2016-08-31] MEDS: FAMOTIDINE 20 MG TAB PO SCH ×2 (10:54→20:48)
[2016-08-31] MEDS: FERROUS SULFATE 325 MG (65 MG ELEMENTAL IRON) TAB PO SCH ×2 (10:56→20:48)
[2016-08-31] MEDS: CYANOCOBALAMIN 1,000 MCG TAB PO SCH (10:56)
[2016-08-31] MEDS: SODIUM CHLORIDE 0.9% FLUSH 10 ML FLUSH IV FLUSH SCH ×2 (10:56→21:00)
[2016-08-31] MEDS: SODIUM CHLOR 0.9% 1000 ML INJ 1,000 ML IV SCH ×2 (11:00→19:23)
[2016-08-31] MEDS: LEVOFLOXACIN 750 MG PREMIX INJ 150 ML IV SCH (11:06)
[2016-08-31 11:17] LABS: BANDS 4 % (0-6); NEUTROPHIL # MANUAL DIFF 6.4 TH/MM3 (1.8-7.7); POLYS (SEG NEUTROPHILS) 46 % (16-70); WBC DIFF SAMPLE 100
[2016-08-31 11:18] LABS: HELMET CELLS OCC (NORMAL); OVALOCYTES 1+ (NORMAL); PLATELET ESTIMATE SMEAR NORMAL (NORMAL); PLATELET MORPHOLOGY NORMAL (NORMAL)
[2016-08-31 11:19] LABS: SCAN/DIFF FINAL DIFF MANUAL
[2016-08-31 12:00] VITALS: BP 113/67; PULSE 74; RESP 16; TEMP 95.7; O2SAT 97
--- NOTE | 2016-08-31 12:22 | HHI.FPPN ---
Subjective Remarks Arjun this morning by medical team. No acute events overnight with vital signs stable. Patient cellulitis beginning to drain. Medical team performed a manual drainage of his wound at bedside with a considerable amount of pus drained. He states that his arm is significantly less swollen and is able to use all of his fingers which is a significant improvement from admission. He currently has no complaints and denies any fevers, chills, shortness of breath, chest pain, NVD, or calf tenderness. (Priyank Velez MD R1) Objective Vitals Vital Signs Date Time Temp Pulse Resp B/P Pulse Ox O2 Delivery O2 Flow Rate FiO2 08/31/16 08:00 96.8 66 16 113/66 97 08/31/16 00:00 97.3 71 22 99/57 94 08/30/16 20:00 97.2 86 20 127/67 96 08/30/16 16:00 96.9 84 18 105/68 93 I/O 08/30/16 08/30/16 08/30/16 08/31/16 08/31/16 08/31/16 07:00 15:00 23:00 07:00 15:00 23:00 Intake Total 1326 ml 1142 ml 740 ml 1008 ml Output Total 900 ml 600 ml 750 ml 750 ml Balance 426 ml 542 ml -10 ml 258 ml Intake Oral 480 ml 360 ml 240 ml 320 ml IV Total 846 ml 782 ml 500 ml 688 ml Output Urine Total 900 ml 600 ml 750 ml 750 ml # Bowel Movements 0 1 0 (Priyank Velez MD R1) Result Diagram: 08/31/1692608/31/16926 Objective Remarks Gen.: 65-year-old male lying in bed watching TV in no acute distress. Cardiac: Regular rate and rhythm with no MGR appreciated Pulmonary: Clear to auscultation bilaterally with no CRW. No increased work of breathing Abdominal: Soft, nontender with positive bowel sounds. No masses appreciated. MSK: No cyanosis or edema. RUE: Right upper extremity with erythema to the mid bicep from the digits ( outlined with surgical marker) which has improved from admission. Erythema is circumferential around the extremity. Patient starting to form multiple fluctuant abscesses that are beginning to weep. One open abscess that is draining mucopurulent fluid was expressed at the bedside by medical team. Extremities warm to touch. Extremity neurovascularly intact. Neuro: Awake alert and oriented. No gross deformities with normal speech. ( Priyank Velez MD R1) A/P Assessment and Plan Mr. Iyer is a 65 y/o CM with an extensive PMHx presented with RUE swelling and erythema with a purulent wound at the elbow. He admitted to medicine team for a cellulitis of the right upper extremity to be treated with IV antibiotics. Discharge Planning Pending clinical improvement. SDW: Dr. Jean Claude Lee DW: Dr. Peace (Priyank Velez MD R1) Attending Attestation Patient seen and examined. Case reviewed and discussed with the resident team. Agree with plan of care as discussed with me and documented in the resident note. (Andreia Peace MD) Problem List: (1) Right arm cellulitis Status: Acute Plan: Patient with cellulitis of the right upper extremity from his mid bicep to the digits. Patient with history of MDRO and previously treated for cellulitis in 07/13. Upper extremity CT: Extensive cellulitis, no abscess CBC: WBC 12.8 Blood cultures 2: Negative to date Wound culture: MRSA resistant to multiple antibiotics, Klebsiella pneumonitis and oxytoca (both pansensitive); All species sensitive to Levofloxacin, Tetracycline, and Bactrim. * Team will plan for 14 days of treatment as this is a repeat MRSA infection. Medications: Vancomycin and Zosyn given in ER Vancomycin 1 g twice a day (08/28-08/31 ) Zosyn 3.375 g every 6 hours (08/29-08/31) Bactrim DS 800/160 twice a day (08/31- ) Levaquin 750 mg daily IV (08/31- ) [place] 7.5 mg when necessary for pain Acetaminophen 500 mg every 4 hours when necessary for fever greater than 101 (2) MALKA (acute kidney injury) Status: Acute Plan: Patient found with BUN of 30 and creatinine 1.66 with ratio of 18. Previously BUN was 20 and creatinine 0.89 on /12/10. Normal saline at 100 mL per hour (MF) as creatinine has improved. Continue to monitor (3) Leukemia Status: Acute Plan: Patient with reported leukemia without specific diagnosis per brief chart review and according to the patient. -Leukemia, appointment on 09/01 with [facility], diagnosed recently per patient ( or perhaps diagnosed in 2013 per pts chart but pt not informed until recently) -Patient states that he does not want chemotherapy currently -Will continue with chart review and request for records from [place]. His leukemia can make him immunocompromised to some extent as well as possibly giving him fevers, etc -He reported significant weight loss, but now stable (4) COPD (chronic obstructive pulmonary disease) Status: Chronic Plan: Patient with chronic obstructive pulmonary disease Continue albuterol 2.5 mg nebulizers twice a day Symbicort 2 puffs twice a day [place] to 1 puff daily Incentive spirometer (5) HTN (hypertension) Status: Chronic Plan: Patient with current hypertension Metoprolol 12.5 mg twice a day Hydralazine 10 mg every 8 hours for SBP greater than 180, DBP greater than 100 (6) GERD (gastroesophageal reflux disease) Status: Chronic Plan: Patient was gastric reflux disease Hold Nexium Continue Zantac there milligrams twice a day Continue Gaviscon (7) PTSD (post-traumatic stress disorder) Status: Chronic Plan: Patient with PTSD Continue fluoxetine 40 mg daily Continue ropinirole 0.25 mg daily at bedtime Continue olanzapine 20 mg daily Continue buspirone 20 mg 3 times a day (8) Hypothyroid Status: Chronic Plan: Patient with hypothyroidism Continue levothyroxine 25 g daily (9) HLD (hyperlipidemia) Status: Chronic Plan: Patient with hyperlipidemia Continue Lipitor 80 mg daily at bedtime (10) BPH (benign prostatic hyperplasia) Status: Chronic Plan: Patient with chronic BPH Continue prazosin 7 mg daily at bedtime (11) Nutrition, metabolism, and development symptoms Status: Acute Plan: Fluids: Normal saline at 100 mL per hour Electrolytes: Within normal limits; continue to monitor Diet: Heart healthy as tolerated Prophylaxis: Aspirin 81 mg daily for cardiac risk, vitamin D3 daily, vitamin B12 daily, iron daily, folic acid daily, loratadine for seasonal allergies, MiraLAX when necessary for constipation, (12) DVT prophylaxis Status: Acute Plan: Heparin 5000 units every 8 hours (Priyank Velez MD R1) Problem Qualifiers (1) Leukemia: (2) COPD (chronic obstructive pulmonary disease): Qualified Code: J44.9 - Chronic obstructive pulmonary disease, unspecified COPD type (3) HTN (hypertension): Qualified Code: I10 - Essential hypertension (4) GERD (gastroesophageal reflux disease): Qualified Code: K21.9 - Gastroesophageal reflux disease, esophagitis presence not specified (5) Hypothyroid: Qualified Code: E03.9 - Acquired hypothyroidism (6) BPH (benign prostatic hyperplasia): Qualified Code: N40.0 - Benign prostatic hyperplasia, presence of lower urinary tract symptoms unspecified, unspecified morphology Priyank Velez MD R1 Aug 31, 2016 12:22 Andreia Peace MD Sep 05, 2016 12:32
[2016-08-31 16:00] VITALS: BP 119/69; PULSE 67; RESP 16; TEMP 95.5; O2SAT 99
[2016-08-31 20:00] VITALS: BP 130/68; PULSE 67; RESP 22; TEMP 97; O2SAT 94
[2016-08-31] MEDS: PRAZOSIN HCL 2 MG CAP PO SCH (20:47)
[2016-08-31] MEDS: PRAZOSIN HCL 5 MG CAP PO SCH (20:47)
[2016-08-31] MEDS: ATORVASTATIN 80 MG TAB PO SCH (20:48)
[2016-08-31] MEDS: SULFAMETHOXAZOLE-TRIMETHOPRIM DS 800-160 MG TAB PO SCH (20:48)
[2016-09-01] VITALS: BP 146/70; PULSE 86; RESP 22; TEMP 97.6; O2SAT 97
[2016-09-01] MEDS: HEPARIN SODIUM - SQ 10,000 UNITS/ML VIAL SQ SCH ×3 (01:00→17:26)
[2016-09-01] MEDS ORDERED: OLANZapine IM 10 MG VIAL IM ONE (02:45)
[2016-09-01] MEDS: ACETAMINOPHEN/HYDROcodone 325 MG/7.5 MG TAB PO PRN ×2 (03:13→21:56)
[2016-09-01] MEDS: SODIUM CHLOR 0.9% 1000 ML INJ 1,000 ML IV SCH (04:21)
[2016-09-01] MEDS ORDERED: HALOPERIDOL LACTATE 5 MG/ML AMP IM ONE (05:00)
[2016-09-01] MEDS: LEVOTHYROXINE SODIUM 25 MCG TAB PO SCH (05:02)
[2016-09-01 08:00] VITALS: BP 145/67; PULSE 76; RESP 16; TEMP 95.7; O2SAT 98
[2016-09-01] MEDS: TIOTROPIUM BROMIDE 18 MCG INH INH SCH (08:06)
[2016-09-01] MEDS: BUDESONIDE-FORMOTEROL 160/4.5 MCG INHALER INH SCH ×2 (08:06→21:54)
[2016-09-01] MEDS: FOLIC ACID 1 MG TAB PO SCH (08:07)
[2016-09-01] MEDS: FERROUS SULFATE 325 MG (65 MG ELEMENTAL IRON) TAB PO SCH ×2 (08:07→21:56)
[2016-09-01] MEDS: SODIUM CHLORIDE 0.9% FLUSH 10 ML FLUSH IV FLUSH SCH ×2 (08:07→21:55)
[2016-09-01] MEDS: FAMOTIDINE 20 MG TAB PO SCH ×2 (08:07→22:02)
[2016-09-01] MEDS: LORATADINE 10 MG TAB PO SCH (08:07)
[2016-09-01] MEDS: SULFAMETHOXAZOLE-TRIMETHOPRIM DS 800-160 MG TAB PO SCH ×2 (08:07→22:02)
[2016-09-01] MEDS: CYANOCOBALAMIN 1,000 MCG TAB PO SCH (08:08)
[2016-09-01] MEDS: busPIRone HCL 10 MG TAB PO SCH ×3 (08:08→17:26)
[2016-09-01] MEDS: FLUoxetine HCL 20 MG CAP PO SCH (08:08)
[2016-09-01] MEDS: DOCUSATE SODIUM 100 MG CAP PO SCH ×2 (08:08→22:03)
[2016-09-01] MEDS: ASPIRIN EC 81 MG TABEC PO SCH (08:09)
[2016-09-01] MEDS: CHOLECALCIFEROL (VIT D3) 1000 UNIT TAB PO SCH (08:09)
[2016-09-01] MEDS: METOPROLOL TARTRATE 25 MG TAB PO SCH ×2 (08:11→22:02)
[2016-09-01] MEDS: [UNRECOGNIZED DRUG - OTHER] PO SCH ×3 (09:00→17:27)
[2016-09-01] MEDS: OLANZapine 10 MG TAB PO SCH (09:00)
--- NOTE | 2016-09-01 09:21 | HHI.FPPN ---
Subjective Remarks Pt seen and examined this morning. AFVSS. Overnight pt had an acute psychotic episode and became agitated and pulled out his IV. He endorsed visual and auditory hallucinations at this time. This morning he reports that he heard gun shots in the distance and this caused him to become agitated and feel as if he needs to leave the hospital. He denies recalling the exact events that took place last night. He thinks that he may not be receiving one of his home medications but is not sure and does not recall the names of his medications. He denies SI/HI. (Saba Lee MD R2) Objective Vitals Vital Signs Date Time Temp Pulse Resp B/P Pulse Ox O2 Delivery O2 Flow Rate FiO2 09/01/16 00:00 97.6 86 22 146/70 97 08/31/16 20:00 97.0 67 22 130/68 94 08/31/16 16:00 95.5 67 16 119/69 99 08/31/16 12:00 95.7 74 16 113/67 97 I/O 08/31/16 08/31/16 08/31/16 09/01/16 09/01/16 09/01/16 07:00 15:00 23:00 07:00 15:00 23:00 Intake Total 1008 ml 1278 ml 480 ml 320 ml Output Total 750 ml 600 ml 650 ml 550 ml Balance 258 ml 678 ml -170 ml -230 ml Intake Oral 320 ml 240 ml 480 ml 320 ml IV Total 688 ml 1038 ml Output Urine Total 750 ml 600 ml 650 ml 550 ml # Bowel Movements 0 0 0 0 (Saba Lee MD R2) Result Diagram: 08/31/1692608/31/16926 Objective Remarks Gen.: 65-year-old male lying in bed, mild resting tremor of upper extremities. Cardiac: Regular rate and rhythm with no MGR appreciated Pulmonary: Clear to auscultation bilaterally with no CRW. No increased work of breathing Abdominal: Soft, nontender with positive bowel sounds. No masses appreciated. MSK: No cyanosis or edema. RUE: Right upper extremity with erythema to the mid bicep from the digits ( outlined with surgical marker) which has improved from admission. Erythema is circumferential around the extremity. Patient starting to form multiple fluctuant abscesses that have been draining. One open abscess that is draining mucopurulent fluid was expressed at the bedside by medical team. Extremities warm to touch. Extremity neurovascularly intact. Neuro: Awake alert and oriented x3. No gross deformities with normal speech. Psych: Good eye contact, speach is tangential at times, denies SI/HI. Currently denies auditory or visual hallucinations. (Saba Lee MD R2) A/P Assessment and Plan Mr. Iyer is a 65 y/o CM with an extensive PMHx presented with RUE swelling and erythema with a purulent wound at the elbow. He admitted to medicine team for a cellulitis of the right upper extremity to be treated with IV antibiotics. Discharge Planning Pending clinical improvement and psych evaluation, likely tomorrow. SDW: Dr. Velez WDW: Dr. Peace (Saba Lee MD R2) Attending Attestation Patient seen and examined. Case reviewed and discussed with the resident team. Agree with plan of care as discussed with me and documented in the resident note. (Andreia Peace MD) Problem List: (1) Acute psychosis Status: Acute Plan: Pt became acutely agitated this morning, endorsed visual and auditory hallucinations and was given 2mg Haldol IM x1, Olanzapine 10mg IM x1. He has a history of PTSD. His medications were reviewed on admission, but he believes there mat be a missing medication. Currently denies SI/HI. Psychiatry has been consulted for further evaluation, appreciate recommendations. (2) Right arm cellulitis Status: Acute Plan: Improving Patient with cellulitis of the right upper extremity from his mid bicep to the digits. Patient with history of MDRO and previously treated for cellulitis in . Upper extremity CT: Extensive cellulitis, no abscess CBC: WBC 12.8, labs for this morning in process Blood cultures 2: Negative to date Wound culture: MRSA resistant to multiple antibiotics, Klebsiella pneumonitis and oxytoca (both pansensitive); All species sensitive to Levofloxacin, Tetracycline, and Bactrim. * Team will plan for 14 days of treatment as this is a repeat MRSA infection. Medications: Bactrim DS 800/160 twice a day (08/31- ) Levaquin 750 mg daily IV (08/31- ) [place] 7.5 mg when necessary for pain Acetaminophen 500 mg every 4 hours when necessary for fever greater than 101 History: Vancomycin and Zosyn given in ER Vancomycin 1 g twice a day (08/28-08/31 ) Zosyn 3.375 g every 6 hours (08/29-08/31) (3) Leukemia Status: Acute Plan: Patient with reported leukemia without specific diagnosis per brief chart review and according to the patient. -Leukemia, appointment on 09/01 with [facility], diagnosed recently per patient ( or perhaps diagnosed in 2013 per pts chart but pt not informed until recently) -Patient states that he does not want chemotherapy currently -Pt diagnosed with CLL per EMR review. -Records have been requested by the [facility] -He reported significant weight loss, but now stable (4) COPD (chronic obstructive pulmonary disease) Status: Chronic Plan: Patient with chronic obstructive pulmonary disease Continue albuterol 2.5 mg nebulizers twice a day Symbicort 2 puffs twice a day [place] to 1 puff daily Incentive spirometer (5) HTN (hypertension) Status: Chronic Plan: Patient with current hypertension Metoprolol 12.5 mg twice a day Hydralazine 10 mg every 8 hours for SBP greater than 180, DBP greater than 100 (6) GERD (gastroesophageal reflux disease) Status: Chronic Plan: Patient was gastric reflux disease Hold Nexium Continue Zantac there milligrams twice a day Continue Gaviscon (7) PTSD (post-traumatic stress disorder) Status: Chronic Plan: Patient with PTSD Continue fluoxetine 40 mg daily Continue olanzapine 20 mg daily Continue buspirone 20 mg 3 times a day (8) Hypothyroid Status: Chronic Plan: Patient with hypothyroidism Continue levothyroxine 25 g daily (9) HLD (hyperlipidemia) Status: Chronic Plan: Patient with hyperlipidemia Continue Lipitor 80 mg daily at bedtime (10) BPH (benign prostatic hyperplasia) Status: Chronic Plan: Patient with chronic BPH Continue prazosin 7 mg daily at bedtime (11) RLS (restless legs syndrome) Status: Chronic Plan: Continue ropinirole 0.25 mg daily at bedtime (12) Nutrition, metabolism, and development symptoms Status: Acute Plan: Fluids: None Electrolytes: Within normal limits; continue to monitor Diet: Heart healthy as tolerated Prophylaxis: Aspirin 81 mg daily for cardiac risk, vitamin D3 daily, vitamin B12 daily, iron daily, folic acid daily, loratadine for seasonal allergies, MiraLAX when necessary for constipation, (13) DVT prophylaxis Status: Acute Plan: Heparin 5000 units every 8 hours (Saba Lee MD R2) Problem Qualifiers (1) Leukemia: (2) COPD (chronic obstructive pulmonary disease): Qualified Code: J44.9 - Chronic obstructive pulmonary disease, unspecified COPD type (3) HTN (hypertension): Qualified Code: I10 - Essential hypertension (4) GERD (gastroesophageal reflux disease): Qualified Code: K21.9 - Gastroesophageal reflux disease, esophagitis presence not specified (5) Hypothyroid: Qualified Code: E03.9 - Acquired hypothyroidism (6) BPH (benign prostatic hyperplasia): Qualified Code: N40.0 - Benign prostatic hyperplasia, presence of lower urinary tract symptoms unspecified, unspecified morphology Saba Lee MD R2 Sep 01, 2016 09:21 Andreia Peace MD Sep 05, 2016 12:33
[2016-09-01 10:23] LABS: AUTOMATED NEUTROPHIL # 5.6 TH/MM3 (1.8-7.7); BASOPHIL % 0.1 % (0.0-2.0); EOSINOPHIL # 0.1 TH/MM3 (0-0.4); EOSINOPHIL % 1.2 % (0.0-4.0); HEMATOCRIT 29.6 % (39.0-51.0); LYMPH % 48.7 % (9.0-44.0); MEAN CELL VOLUME 86.8 FL (80.0-100.0); MEAN CORPUSCULAR HEMOGLOBIN 29.1 PG (27.0-34.0); MEAN CORPUSCULAR HGB CONC 33.5 % (32.0-36.0); MONO % 4.7 % (0.0-8.0); NEUT % 45.3 % (16.0-70.0); PLATELET COUNT 267 TH/MM3 (150-450); RED BLOOD COUNT 3.41 MIL/MM3 (4.50-5.90); RED CELL DISTRIBUTION WIDTH 14.4 % (11.6-17.2); WHITE BLOOD COUNT 12.4 TH/MM3 (4.0-11.0)
[2016-09-01 10:28] LABS: HEMO FLAGS AUTO DIFF
[2016-09-01 10:39] LABS: POTASSIUM 3.4 MEQ/L (3.5-5.1)
[2016-09-01] MEDS: LEVOFLOXACIN 750 MG PREMIX INJ 150 ML IV SCH (11:00)
--- NOTE | 2016-09-01 11:09 | HHI.DCPOC ---
Discharge Care Plan Diagnosis: (1) Right arm cellulitis Goals to Promote Your Health * To prevent worsening of your condition and complications * To maintain your health at the optimal level Directions to Meet Your Goals Take your medications as prescribed Follow your dietary instruction Follow activity as directed Keep your appointments as scheduled Take your immunizations and boosters as scheduled If your symptoms worsen call your PCP, if no PCP go to Urgent Care Center or Emergency Room Smoking is Dangerous to Your Health. Avoid second hand smoke Call the 24-hour hour crisis hotline for domestic abuse at Priyank Velez MD R1 Sep 01, 2016 11:09
[2016-09-01] MEDS ORDERED: LEVA750T PO (11:15)
[2016-09-01] MEDS ORDERED: BACT800T5 PO (11:15)
[2016-09-01 11:53] LABS: EOSINOPHILS 1 % (0-4); NEUTROPHIL # MANUAL DIFF 5.1 TH/MM3 (1.8-7.7); POLYS (SEG NEUTROPHILS) 41 % (16-70); WBC DIFF SAMPLE 100
[2016-09-01 11:55] LABS: OVALOCYTES 1+ (NORMAL); PLATELET ESTIMATE SMEAR NORMAL (NORMAL); PLATELET MORPHOLOGY NORMAL (NORMAL); SCAN/DIFF FINAL DIFF MANUAL
[2016-09-01 12:00] VITALS: BP 128/63; PULSE 72; RESP 14; TEMP 96.1; O2SAT 97
--- NOTE | 2016-09-01 12:55 | PD.CONS ---
Provisional Diagnosis Admission Date Aug 28, 2016 at 11:00 [place]. PTSD f 43.10 History of Present Illness Service Psychiatry Consult Requested By Attending Jewell Reason for Consult Assessment Primary Care Physician [facility] HPI Patient is a 65-year-old white male admitted for cellulitis of the right arm. Patient is an [employer] served in [place] has a long history of PTSD. At the present time patient sitting quietly on the couch in his room. RN present throughout session. Patient stating he has had intermittent persistent auditory hallucinations for many years. Has been in various PTSD programs through the . [place] a psychiatrist through the [place] in town. He states she's been on multiple medications in the past none of which have totally eliminated the voices. He does denies suicidality homicidality. He denies any alcohol use in the past 5-6 years. He states he does occasionally use marijuana. He states he lives by himself has no children. Review of EMR shows no prior psychiatric hospitalization here. I reviewed patient's medications. They appear appropriate at this time. Is okay by psych for discharge from medically clear and stable. It is okay for him to continue his presently scheduled medications. And follow-up through [place] thanks for consult will sign off the present time Review of Systems Constitutional: DENIES: Diaphoretic episodes, Fatigue, Fever, Weight gain, Weight loss, Chills, Dizziness, Change in appetite, Night Sweats Endocrine: DENIES: Heat/cold intolerance, Polydipsia, Polyuria, Polyphagia Eyes: DENIES: Blurred vision, Diplopia, Eye inflammation, Eye pain, Vision loss , Photosensitivity, Double Vision Ears, nose, mouth, throat: DENIES: Tinnitus, Hearing loss, Vertigo, Nasal discharge, Oral lesions, Throat pain, Hoarseness, Ear Pain, Running Nose, Epistaxis, Sinus Pain, Toothache, Odynophagia Respiratory: DENIES: Apneas, Cough, Snoring, Wheezing, Hemoptysis, Sputum production, Shortness of breath Cardiovascular: DENIES: Chest pain, Palpitations, Syncope, Dyspnea on Exertion , PND, Lower Extremity Edema, Orthopnea, Claudication Gastrointestinal: DENIES: Abdominal pain, Black stools, Bloody stools, Constipation, Diarrhea, Nausea, Vomiting, Difficulty Swallowing, Anorexia Genitourinary: DENIES: Sexual dysfunction, Urinary frequency, Urinary incontinence, Urgency, Hematuria, Dysuria, Nocturia, Penile Discharge, Testicular Pain, Testicular Swelling Musculoskeletal: DENIES: Joint pain, Muscle aches, Stiffness, Joint Swelling, Back pain, Neck pain Integumentary: DENIES: Abnormal pigmentation, Nail changes, Pruritus, Rash Hematologic/lymphatic: DENIES: Bruising, Lymphadenopathy Immunologic/allergic: DENIES: Eczema, Urticaria Neurologic: DENIES: Abnormal gait, Headache, Localized weakness, Paresthesias, Seizures, Speech Problems, Tremor, Poor Balance Psychiatric: COMPLAINS OF: Hallucinations Past Family Social History Coded Allergies: *MDRO Multi-Drug Resistant Organism (Verified Adverse Reaction, Unknown, ) MRSA (finger)-06/29/16; (arm)-08/28/16 Past Medical History Please see medical assessments Active Scripts Levofloxacin (Levaquin)750 Mg Vdt140 Mg PO DAILY #10 TAB Ref 0 Prov:Priyank Velez MD R1 09/01/16 Sulfamethoxazole-Trimethoprim (Bactrim DS)800-160 Mg Tab1 Tab PO Q12HR #20 TAB Prov:Priyank Velez MD R1 09/01/16 Reported Medications Tiotropium Inh (Spiriva Handihaler)18 Mcg Cap1 Puff INH DAILY #30 CAP Ref 0 1 capsule = 18 mcg 06/29/16 Rosuvastatin (Crestor)40 Mg Tab40 Mg PO HS #30 TAB Ref 0 06/29/16 Ropinirole (Requip)0.25 Mg Tab0.25 Mg PO HS #30 TAB Ref 0 06/29/16 Ranitidine (Zantac)300 Mg Xqc623 Mg PO BID Ref 0 06/29/16 Olanzapine 20 Mg Tab20 Mg PO DAILY #30 TAB Ref 0 06/29/16 Nitroglycerin SL (Nitrostat SL)0.4 Mg Subl0.4 Mg SL DIRECTED PRN (CHEST PAIN ) #100 TAB.SL Ref 0 1 tablet under the tongue as needed for chest pain. Repeat every 5 minutes for a total of 3 DOSES or call 911 if NO relief. 06/29/16 Cyanocobalamin (Vitamin B-12)1,000 Mcg Tab1,000 Mcg PO DAILY #1 BOTTLE Ref 0 06/29/16 Polyethylene Glycol 3350 Powder (Miralax Powder)17 Gm Powd17 Gm PO BID PRN ( CONSTIPATION) #1 BOTTLE Ref 0 Mix and dissolve one measuring capful (17 grams) in water or juice. 06/29/16 Prazosin (Minipress)2 Mg Cap7 Mg PO HS #60 CAP Ref 0 Take 1 capsule (2mg) with 5mg capsule for a total dose of 7mg 06/29/16 Prazosin (Minipress)5 Mg Cap7 Mg PO HS #60 CAP Ref 0 Take 1 capsule (5mg) with 2mg capsule for a total dose of 7mg 06/29/16 Metoprolol Tartrate 25 Mg Tab12.5 Mg PO BID #60 TAB Ref 0 06/29/16 Loratadine (Claritin)10 Mg Tab10 Mg PO DAILY Ref 0 06/29/16 Levothyroxine 25 Mcg Tab25 Mcg PO DAILY #30 TAB Ref 0 06/29/16 Aluminum Hydroxide-Mag Trisil (Gaviscon)80-14.2 mg Chew2 Tab CHEW TIDAC PRN ( UPSET STOMACH) Ref 0 Maximum 16 tabs/24 hrs 06/29/16 Folic Acid (Folate)1 Mg Tab1 Mg PO EVERY OTHER DAY Ref 0 06/29/16 Fluoxetine (Prozac)40 Mg Cap40 Mg PO DAILY #30 CAP Ref 0 06/29/16 Ferrous Sulfate 325 Mg Lwe072 Mg PO BID #30 TAB Ref 0 06/29/[address] (Nexium)40 Mg Capdr40 Mg PO DAILY Ref 0 06/29/16 Docusate Sodium (Colace)100 Mg Bxt582 Mg PO BID PRN (Constipation) #60 CAP Ref 0 06/29/16 Cholecalciferol (Vitamin D3)2,000 Unit Tab2,000 Units PO DAILY #1 BOTTLE Ref 0 06/29/16 Ktlfnlbseh-Msoebgshnanvj-Gsyjliza-Codeine (Fioricet-Codeine)72-756-68-30 Mg Cap1 Cap PO TID PRN (HEADACHE) Ref 0 Do not exceed 6 capsules/day. No more than twice a week. 06/29/16 Buspirone 10 Mg Tab20 Mg PO TID Ref 0 06/29/16 Budesonide-Formoterol Inh (Symbicort Inh)160-4.5 Mcg/Act Aero2 Puff INH BID #1 INHALER Ref 0 06/29/[address] (Aspirin Adult Low Strength)81 Mg Tabdr81 Mg PO DAILY 06/29/16 Albuterol Neb 2.5 Mg/3 Ml Neb2.5 Mg NEB BID #1 NEBULE Ref 0 06/29/16 Amlodipine (Norvasc)10 Mg Tab10 Mg PO DAILY #30 TAB Ref 0 06/29/16 Discontinued Reported Medications Capsaicin (Zostrix High Potency)0.075 % Cre1 Applic TOP TID PRN (JOINT PAIN) 06/29/16 Probiotic Product (Acidophilus Probiotic)1 Tab Tab2 Tab PO DAILY 06/29/16 Discontinued Scripts Sulfamethoxazole-Trimethoprim (Bactrim DS)800-160 Mg Tab1 Tab PO BID #20 TAB Ref 0 Prov:Izaiah Torres MD 06/29/16 Current Medications Medications (Trade) Dose Ordered Sig/Nadia Route Start Time Stop Time Status Last Admin (NS Flush) 2 ml BID IV FLUSH 08/28/16 21:00 08/31/16 10:56 (NS Flush) 2 ml UNSCH PRN IV FLUSH 08/28/16 12:00 (Tylenol) 500 mg Q4H PRN PO 08/28/16 12:00 ([place] 7.5-325 Mg) 1 tab Q4H PRN PO 08/28/16 12:00 09/01/16 03:13 (Heparin Inj) 5,000 units Q8H SQ 08/29/16 09:00 09/01/16 08:11 (Apresoline) 10 mg Q8HR PRN PO 08/28/16 12:00 (Gaviscon Reg Strength Chew) 2 tab TIDAC PRN CHEW 08/28/16 12:00 (Ecotrin Ec) 81 mg DAILY PO 08/29/16 09:00 09/01/16 08:09 (Symbicort 160-4.5 Inh) 2 puff BID INH 08/28/16 21:00 09/01/16 08:06 (Buspar) 20 mg TID PO 08/28/16 13:00 09/01/16 08:08 (Vitamin D3) 2,000 units DAILY PO 08/29/16 09:00 09/01/16 08:09 (Vitamin B12) 1,000 mcg DAILY PO 08/29/16 09:00 09/01/16 08:08 (Ferrous Sulfate) 325 mg BID PO 08/28/16 21:00 09/01/16 08:07 (Synthroid) 25 mcg DAILY@06 PO 08/29/16 06:00 09/01/16 05:02 (Claritin) 10 mg DAILY PO 08/29/16 09:00 09/01/16 08:07 (Lopressor) 12.5 mg BID PO 08/28/16 21:00 09/01/16 08:11 (ZyPREXA) 20 mg DAILY PO 08/29/16 09:00 09/01/16 09:00 (Miralax) 17 gm BID PRN PO 08/28/16 12:00 (Requip) 0.25 mg HS PO 08/28/16 21:00 08/31/16 20:47 (Spiriva Inh) 18 mcg DAILY INH 08/29/16 09:00 Patient Own Medication PT OWN MED: (Mhxiotlwwe-Tdgowobwgiyzf-Sosppzrq-Codeine... TID PO 08/28/16 13:00 (PROzac) 40 mg DAILY PO 08/29/16 09:00 09/01/16 08:08 (Pepcid) 20 mg BID PO 08/28/16 13:30 09/01/16 08:07 (Lipitor) 80 mg HS PO 08/28/16 21:00 08/31/16 20:48 (Minipress) 2 mg HS PO 08/28/16 21:00 08/31/16 20:47 (Minipress) 5 mg HS PO 08/28/16 21:00 08/31/16 20:47 Docusate Sodium 100 mg 100 mg BID PO 08/28/16 21:00 09/01/16 08:08 (Levaquin 750 Mg Premix Inj) 150 ml @ 100 mls/hr Q24H IV 08/31/16 11:00 09/01/16 11:00 (Bactrim Ds 800-160 Mg) 1 tab Q12HR PO 08/31/16 21:00 09/01/16 08:07 Family History No history mental illness noted in family Social History Patient single lives by himself Patient's Strengths (min. 2) Patient verbal cooperative able access healthcare Physical Exam Please see med surge assessments Vital Signs Vital Signs Date Time Temp Pulse Resp B/P Pulse Ox O2 Delivery O2 Flow Rate FiO2 09/01/16 08:00 95.7 76 16 145/67 98 08/28/16 13:15 Room Air I/O 08/31/16 08/31/16 09/01/16 08:00 16:00 00:00 Intake Total 1008 ml 1278 ml 480 ml Output Total 750 ml 600 ml 650 ml Balance 258 ml 678 ml -170 ml Mental Status Examination Limited oriented white male appears stated age seen coming cultures room is cooperative with good eye contact Appearance Clean and neat Speech: Unremarkable, Hesitant (at times slightly) Orientation: x3 Memory: Unremarkable Thought Process: Logical, Linear Thought Content: Unremarkable, Other (occasional auditory hallucinations) Language Faroese Fund of Knowledge Fair Hallucination Type: Auditory (chronic long-term secondary to PTSD) Attention and Concentration: Other (fair) Suicidal Ideation: No (denies) Previous Suicide Attempts: No Homicidal Ideation: No Previous Homicide Attempts: No Insight: Fair Judgment: WNL (fair) Affect: Other (decreased range and intensity) Mood: Euthymic (to somewhat restricted) Motor Activity: Normal gait Assessment & Plan Problem List: (1) PTSD (post-traumatic stress disorder) ICD Code: F43.10 Assessment & Plan Estimated LOS: days and recommend patient continue his scheduled medications. Is okay by psychiatry for discharge with medical clearance stable, to continue his medications and to follow-up the [place] will sign off the present time thanks for consult Discharge Planning See above Request HC Surrog/Guard Advoc?: No Gilmar Rojas MD Sep 01, 2016 12:55
[2016-09-01 16:00] VITALS: BP 120/76; PULSE 71; RESP 17; TEMP 96.1; O2SAT 97
[2016-09-01 20:00] VITALS: BP 131/73; PULSE 77; RESP 17; TEMP 96; O2SAT 97
[2016-09-01] MEDS ORDERED: ATORVASTATIN 10 MG TAB PO SCH (21:00)
[2016-09-01] MEDS: PRAZOSIN HCL 5 MG CAP PO SCH (21:56)
[2016-09-01] MEDS: PRAZOSIN HCL 2 MG CAP PO SCH (22:33)
[2016-09-02] VITALS: BP 121/60; PULSE 75; RESP 17; TEMP 96.7; O2SAT 94
[2016-09-02] MEDS: HEPARIN SODIUM - SQ 10,000 UNITS/ML VIAL SQ SCH ×2 (00:27→09:06)
[2016-09-02] MEDS: LEVOTHYROXINE SODIUM 25 MCG TAB PO SCH (06:02)
[2016-09-02 06:07] LABS: BICARBONATE 22.1 MEQ/L (21.0-32.0); POTASSIUM 3.2 MEQ/L (3.5-5.1)
[2016-09-02 06:12] LABS: AUTOMATED NEUTROPHIL # 4.1 TH/MM3 (1.8-7.7); BASOPHIL % 0.2 % (0.0-2.0); EOSINOPHIL # 0.2 TH/MM3 (0-0.4); EOSINOPHIL % 1.8 % (0.0-4.0); HEMATOCRIT 30.6 % (39.0-51.0); LYMPH % 58.1 % (9.0-44.0); MEAN CELL VOLUME 86.7 FL (80.0-100.0); MEAN CORPUSCULAR HGB CONC 33.5 % (32.0-36.0); MONO % 6.1 % (0.0-8.0); NEUT % 33.8 % (16.0-70.0); PLATELET COUNT 301 TH/MM3 (150-450); RED BLOOD COUNT 3.53 MIL/MM3 (4.50-5.90); RED CELL DISTRIBUTION WIDTH 14.2 % (11.6-17.2); WHITE BLOOD COUNT 12.1 TH/MM3 (4.0-11.0)
[2016-09-02 07:28] LABS: HEMO FLAGS AUTO DIFF
[2016-09-02] MEDS ORDERED: POTASSIUM CHLORIDE 10 MEQ CONTROLLED RELEASE TAB PO ONE (07:45)
[2016-09-02] MEDS: SODIUM CHLORIDE 0.9% FLUSH 10 ML FLUSH IV FLUSH SCH (09:00)
[2016-09-02] MEDS: BUDESONIDE-FORMOTEROL 160/4.5 MCG INHALER INH SCH (09:00)
[2016-09-02] MEDS: TIOTROPIUM BROMIDE 18 MCG INH INH SCH (09:00)
[2016-09-02] MEDS: [UNRECOGNIZED DRUG - OTHER] PO SCH (09:00)
[2016-09-02] MEDS: OLANZapine 10 MG TAB PO SCH (09:00)
[2016-09-02] MEDS: FAMOTIDINE 20 MG TAB PO SCH (09:04)
[2016-09-02] MEDS: ASPIRIN EC 81 MG TABEC PO SCH (09:04)
[2016-09-02] MEDS: LORATADINE 10 MG TAB PO SCH (09:05)
[2016-09-02] MEDS: FERROUS SULFATE 325 MG (65 MG ELEMENTAL IRON) TAB PO SCH (09:05)
[2016-09-02] MEDS: CHOLECALCIFEROL (VIT D3) 1000 UNIT TAB PO SCH (09:05)
[2016-09-02] MEDS: busPIRone HCL 10 MG TAB PO SCH ×2 (09:05→11:25)
[2016-09-02] MEDS: METOPROLOL TARTRATE 25 MG TAB PO SCH (09:05)
[2016-09-02] MEDS: CYANOCOBALAMIN 1,000 MCG TAB PO SCH (09:06)
[2016-09-02] MEDS: FLUoxetine HCL 20 MG CAP PO SCH (09:06)
[2016-09-02] MEDS: DOCUSATE SODIUM 100 MG CAP PO SCH (09:06)
[2016-09-02] MEDS: SULFAMETHOXAZOLE-TRIMETHOPRIM DS 800-160 MG TAB PO SCH (09:06)
[2016-09-02 09:10] LABS: BANDS 2 % (0-6); BASOPHILS 1 % (0-2); EOSINOPHILS 2 % (0-4); NEUTROPHIL # MANUAL DIFF 3.4 TH/MM3 (1.8-7.7); POLYS (SEG NEUTROPHILS) 26 % (16-70); WBC DIFF SAMPLE 100
[2016-09-02 09:11] LABS: OVALOCYTES 1+ (NORMAL); PLATELET ESTIMATE SMEAR NORMAL (NORMAL); PLATELET MORPHOLOGY NORMAL (NORMAL); SCAN/DIFF FINAL DIFF MANUAL; SMUDGE CELLS PRESENT PRESENT
--- NOTE | 2016-09-02 10:50 | HHI.FPPN ---
Subjective Remarks Patient seen and examined. No acute events overnight or hallucinations per nursing staff. Patient states that he feels better and wants to go home. Pain in right arm is controlled. It is still draining but only small amount of yellowish clear fluid. (Ni Blackman MD R3) Objective Vitals Vital Signs Date Time Temp Pulse Resp B/P Pulse Ox O2 Delivery O2 Flow Rate FiO2 09/02/16 00:00 96.7 75 17 121/60 94 09/01/16 20:00 96.0 77 17 131/73 97 09/01/16 16:00 96.1 71 17 120/76 97 09/01/16 12:00 96.1 72 14 128/63 97 I/O 09/01/16 09/01/16 09/01/16 09/02/16 09/02/16 09/02/16 07:00 15:00 23:00 07:00 15:00 23:00 Intake Total 320 ml 800 ml 240 ml 240 ml Output Total 550 ml 600 ml 300 ml Balance -230 ml 200 ml 240 ml -60 ml Intake Oral 320 ml 800 ml 240 ml 240 ml Output Urine Total 550 ml 600 ml 300 ml # Voids 3 # Bowel Movements 0 1 (Ni Blackman MD R3) Result Diagram: 09/02/16 0522 09/02/16 0522 Imaging Chest X-Ray 08/28/16 0922 Signed Impressions: Service Date/Time: Sunday, August 28, 2016 09:27 - CONCLUSION: Linear scarring or atelectasis in the right base. David Keene MD Upper Extremity CT 08/28/16 0000 Signed Impressions: Service Date/Time: Sunday, August 28, 2016 10:41 - CONCLUSION: Extensive cellulitis. No abscess Gilmar Mendoza MD Objective Remarks Gen.: 65-year-old male lying in bed, mild resting tremor of upper extremities. Cardiac: Regular rate and rhythm with no MGR appreciated Pulmonary: Clear to auscultation bilaterally with no CRW. No increased work of breathing Abdominal: Soft, nontender with positive bowel sounds. No masses appreciated. MSK: No cyanosis or edema. RUE: Right upper extremity with edema but improved from previous days. Erythema has improved and warmth has resolved. Abscess on posterior aspect of upper forearm still draining small amount of yellow serousangiouness fluid. Extremity neurovascularly intact. Neuro: Awake alert and oriented x3. No gross deformities with normal speech. Psych: Good eye contact, denies SI/HI. Currently denies auditory or visual hallucinations. (Ni Blackman MD R3) A/P Assessment and Plan Mr. Iyer is a 65 y/o CM with an extensive PMHx presented with RUE swelling and erythema with a purulent wound at the elbow. He admitted to medicine team for cellulitis and abscess of the right upper extremity. He has improved significantly since admission and is stable for discharge home today with oral Levaquin and Bactrim to complete 14 days of antibiotics. Discharge Planning Discharge home today pending clinical improvement. [facility] and follow up with PCP in one week. SDW: Dr. Peace and Dr. Velez (Ni Blackman MD R3) Attending Attestation Patient seen and examined. Case reviewed and discussed with the resident team. Agree with plan of care as discussed with me and documented in the resident note. (Andreia Peace MD) Problem List: (1) Acute psychosis Status: Acute Plan: Patient with history of PTSD and visual/auditory hallucinations and was given 2mg Haldol IM x1, Olanzapine 10mg IM x1 on 09/01. No psychosis noted since then. Psychiatry was consulted. Appreciated recommendations: * Psychosis is chronic and patient has been on multiple medications in the past but without much improvement. * Continue current scheduled medications with Olanzapine, Prozac, and Buspar * Stable for discharge. [facility] (2) Right arm cellulitis Status: Acute Plan: Patient with history of MDRO and previously treated for cellulitis in who was admitted for R. arm cellulitis per CT and eventually developed an abscess in that area Wound culture: MRSA resistant to multiple antibiotics, Klebsiella pneumonitis and oxytoca (both pansensitive); All species sensitive to Levofloxacin, Tetracycline, and Bactrim. However symptoms much improved compared to previous days. Right arm is still edematous with small amount of serosanguineous drainage but warmth and redness has resolved s/p antibiotics. Leukocytosis improved. VSSAF. Blood cultures negative. Patient currently on Bactrim DS 800/160mg BID (08/31-)and IV Levaquin 750mg daily (08/31-). Will discharge home with po Bactrim and Levaquin to complete 14- day of antibiotics Continue wound care. Will need to follow up with PCP set up home health wound care [place] 7.5 mg when necessary for pain Acetaminophen 500 mg every 4 hours when necessary for fever greater than 101 History: Vancomycin and Zosyn given in ER Vancomycin 1 g twice a day (08/28-08/31 ) Zosyn 3.375 g every 6 hours (08/29-08/31) (3) Leukemia Status: Acute Plan: Patient with reported leukemia without specific diagnosis per brief chart review and according to the patient. -Leukemia, appointment on 09/01 with [facility], diagnosed recently per patient ( or perhaps diagnosed in 2013 per pts chart but pt not informed until recently) -Patient states that he does not want chemotherapy currently -Pt diagnosed with CLL per EMR review. -Records have been requested by the [facility] -He reported significant weight loss, but now stable (4) COPD (chronic obstructive pulmonary disease) Status: Chronic Plan: Patient with chronic obstructive pulmonary disease Continue albuterol 2.5 mg nebulizers twice a day Symbicort 2 puffs twice a day [place] to 1 puff daily Incentive spirometer (5) HTN (hypertension) Status: Chronic Plan: Patient with current hypertension Metoprolol 12.5 mg twice a day Hydralazine 10 mg every 8 hours for SBP greater than 180, DBP greater than 100 (6) GERD (gastroesophageal reflux disease) Status: Chronic Plan: Patient was gastric reflux disease Hold Nexium Continue Zantac there milligrams twice a day Continue Gaviscon (7) PTSD (post-traumatic stress disorder) Status: Chronic Plan: Patient with PTSD Continue fluoxetine 40 mg daily Continue olanzapine 20 mg daily Continue buspirone 20 mg 3 times a day (8) Hypothyroid Status: Chronic Plan: Patient with hypothyroidism Continue levothyroxine 25 g daily (9) HLD (hyperlipidemia) Status: Chronic Plan: Patient with hyperlipidemia Continue Lipitor 80 mg daily at bedtime (10) BPH (benign prostatic hyperplasia) Status: Chronic Plan: Patient with chronic BPH Continue prazosin 7 mg daily at bedtime (11) RLS (restless legs syndrome) Status: Chronic Plan: Continue ropinirole 0.25 mg daily at bedtime (12) Nutrition, metabolism, and development symptoms Status: Acute Plan: Fluids: None Electrolytes: Within normal limits; continue to monitor Diet: Heart healthy as tolerated Prophylaxis: Aspirin 81 mg daily for cardiac risk, vitamin D3 daily, vitamin B12 daily, iron daily, folic acid daily, loratadine for seasonal allergies, MiraLAX when necessary for constipation, (13) DVT prophylaxis Status: Acute Plan: Heparin 5000 units every 8 hours (Ni Blackman MD R3) Problem Qualifiers (1) Leukemia: (2) COPD (chronic obstructive pulmonary disease): Qualified Code: J44.9 - Chronic obstructive pulmonary disease, unspecified COPD type (3) HTN (hypertension): Qualified Code: I10 - Essential hypertension (4) GERD (gastroesophageal reflux disease): Qualified Code: K21.9 - Gastroesophageal reflux disease, esophagitis presence not specified (5) Hypothyroid: Qualified Code: E03.9 - Acquired hypothyroidism (6) BPH (benign prostatic hyperplasia): Qualified Code: N40.0 - Benign prostatic hyperplasia, presence of lower urinary tract symptoms unspecified, unspecified morphology Ni Blackman MD R3 Sep 02, 2016 10:50 Andreia Peace MD Sep 05, 2016 12:33
[2016-09-02] MEDS: LEVOFLOXACIN 750 MG PREMIX INJ 150 ML IV SCH (11:00)
--- NOTE | 2016-09-02 13:16 | HHI.DS ---
Discharge Summary Admission Date Aug 28, 2016 at 11:00 Discharge Date: Sep 02, 2016 Admitting Diagnosis SIRS, right forearm cellulitis (1) Acute psychosis Diagnosis: Principal Plan: Patient with history of PTSD and visual/auditory hallucinations and was given 2mg Haldol IM x1, Olanzapine 10mg IM x1 on 09/01. No psychosis noted since then. Psychiatry was consulted. Appreciated recommendations: * Psychosis is chronic and patient has been on multiple medications in the past but without much improvement. * Continue current scheduled medications with Olanzapine, Prozac, and Buspar * Stable for discharge. Follow up with [facility] psych as outpatient (2) Right arm cellulitis Diagnosis: Principal Plan: Patient with history of MDRO and previously treated for cellulitis in who was admitted for R. arm cellulitis per CT and eventually developed an abscess in that area Wound culture: MRSA resistant to multiple antibiotics, Klebsiella pneumonitis and oxytoca (both pansensitive); All species sensitive to Levofloxacin, Tetracycline, and Bactrim. However symptoms much improved compared to previous days. Right arm is still edematous with small amount of serosanguineous drainage but warmth and redness has resolved s/p antibiotics. Leukocytosis improved. VSSAF. Blood cultures negative. Patient currently on Bactrim DS 800/160mg BID (08/31-)and IV Levaquin 750mg daily (08/31-). Will discharge home with po Bactrim and Levaquin to complete 14- day of antibiotics Continue wound care. Will need to follow up with PCP set up home health wound care [place] 7.5 mg when necessary for pain Acetaminophen 500 mg every 4 hours when necessary for fever greater than 101 History: Vancomycin and Zosyn given in ER Vancomycin 1 g twice a day (08/28-08/31 ) Zosyn 3.375 g every 6 hours (08/29-08/31) (3) Leukemia Plan: Patient with reported leukemia without specific diagnosis per brief chart review and according to the patient. -Leukemia, appointment on 09/01 with [facility], diagnosed recently per patient ( or perhaps diagnosed in 2013 per pts chart but pt not informed until recently) -Patient states that he does not want chemotherapy currently -Pt diagnosed with CLL per EMR review. -Records have been requested by the [facility] -He reported significant weight loss, but now stable (4) COPD (chronic obstructive pulmonary disease) Plan: Patient with chronic obstructive pulmonary disease Continue albuterol 2.5 mg nebulizers twice a day Symbicort 2 puffs twice a day [place] to 1 puff daily Incentive spirometer (5) HTN (hypertension) Plan: Patient with current hypertension Metoprolol 12.5 mg twice a day Hydralazine 10 mg every 8 hours for SBP greater than 180, DBP greater than 100 (6) GERD (gastroesophageal reflux disease) Plan: Patient was gastric reflux disease Hold Nexium Continue Zantac there milligrams twice a day Continue Gaviscon (7) PTSD (post-traumatic stress disorder) Plan: Patient with PTSD Continue fluoxetine 40 mg daily Continue olanzapine 20 mg daily Continue buspirone 20 mg 3 times a day (8) Hypothyroid Plan: Patient with hypothyroidism Continue levothyroxine 25 g daily (9) HLD (hyperlipidemia) Plan: Patient with hyperlipidemia Continue Lipitor 80 mg daily at bedtime (10) BPH (benign prostatic hyperplasia) Plan: Patient with chronic BPH Continue prazosin 7 mg daily at bedtime (11) RLS (restless legs syndrome) Plan: Continue ropinirole 0.25 mg daily at bedtime (12) Nutrition, metabolism, and development symptoms Plan: Fluids: None Electrolytes: Within normal limits; continue to monitor Diet: Heart healthy as tolerated Prophylaxis: Aspirin 81 mg daily for cardiac risk, vitamin D3 daily, vitamin B12 daily, iron daily, folic acid daily, loratadine for seasonal allergies, MiraLAX when necessary for constipation, (13) DVT prophylaxis Plan: Heparin 5000 units every 8 hours Consultants Psych: Dr. Rojas Brief History Mr. Iyer is a 65 y/o CM with an extensive PMHx who presented with RUE swelling and erythema with a purulent wound at the elbow. He states that on he was seen at [facility] for MRSA infection of the LLE and the LUE with similar swelling and erythema. He was discharged from the ER with Bactrim for 10 days and was compliant. He states that the swelling and erythema resolved, but has now come back in his RUE. He presented with 48 hours of RUE swelling and erythema from the mid-bicep to the digits. He endorses subjective fevers with chills since being seen on 06/29/16. He states that this episode is different in that the swelling is more "solid" and has a purulent wound at the olecranon. He denies any trauma to the extremity, but does state that he noticed a small swelling on the 3rd digit that he lanced with a needle at his home. He has good sensation and circulation throughout the extremity with appropriate strength and ROM. Otherwise he has no complaints and denies any chest pain, shortness of breath, NVD, or calf tenderness. [facility]. He reports that he was told to have [facility] for his chronic leukemia but declined. 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 Hospice was discussed but he is doing well so far at home taking care of himself and does not want this now but would be open to this in the future depending on his illness and debility. CBC/BMP: 09/02/1652109/02/16521 Significant Findings Laboratory Tests Test 08/31/16 09/01/16 09/01/16 09/02/16 09:27 09:30 09:39 05:22 White Blood Count 12.8 TH/MM3 12.4 TH/MM3 12.1 TH/MM3 (4.0-11.0) (4.0-11.0) (4.0-11.0) Red Blood Count 3.55 MIL/MM3 3.41 MIL/MM3 3.53 MIL/MM3 (4.50-5.90) (4.50-5.90) (4.50-5.90) Hemoglobin 10.0 GM/DL 9.9 GM/DL 10.2 GM/DL (13.0-17.0) (13.0-17.0) (13.0-17.0) Hematocrit 31.1 % 29.6 % 30.6 % (39.0-51.0) (39.0-51.0) (39.0-51.0) Lymphocytes (%) (Auto) 49.2 % 48.7 % 58.1 % (9.0-44.0) (9.0-44.0) (9.0-44.0) Lymphocytes # (Auto) 6.3 TH/MM3 6.0 TH/MM3 7.0 TH/MM3 (1.0-4.8) (1.0-4.8) (1.0-4.8) Lymphocytes % 46 % (9-44) 54 % (9-44) 67 % (9-44) Ovalocytes 1+ (NORMAL) 1+ (NORMAL) 1+ (NORMAL) Estimat Glomerular Filtration 86 ML/MIN (>89) 80 ML/MIN (>89) 77 ML/MIN (>89) Rate Vancomycin Level Trough 11.4 MCG/ML (5.0-10.0) Potassium Level 3.4 MEQ/L 3.2 MEQ/L (3.5-5.1) (3.5-5.1) Random Glucose 128 MG/DL (74-106) Chloride Level 108 MEQ/L (98-107) Imaging Chest X-Ray 08/28/16 0922 Signed Impressions: Service Date/Time: Sunday, August 28, 2016 09:27 - CONCLUSION: Linear scarring or atelectasis in the right base. David Keene MD Upper Extremity CT 08/28/16 0000 Signed Impressions: Service Date/Time: Sunday, August 28, 2016 10:41 - CONCLUSION: Extensive cellulitis. No abscess Gilmar Mendoza MD PE at Discharge Gen.: 65-year-old male lying in bed, mild resting tremor of upper extremities. Cardiac: Regular rate and rhythm with no MGR appreciated Pulmonary: Clear to auscultation bilaterally with no CRW. No increased work of breathing Abdominal: Soft, nontender with positive bowel sounds. No masses appreciated. MSK: No cyanosis or edema. RUE: Right upper extremity with edema but improved from previous days. Erythema has improved and warmth has resolved. Abscess on posterior aspect of upper forearm still draining small amount of yellow serousangiouness fluid. Extremity neurovascularly intact. Neuro: Awake alert and oriented x3. No gross deformities with normal speech. Psych: Good eye contact, denies SI/HI. Currently denies auditory or visual hallucinations. Hospital Course Mr. Iyer is a 65 year old female who was admitted on August 28, 2016 for right arm cellulitis, confirmed on CT and acute kidney injury. He was started IV Vancomycin, Zosyn and IV fluids. Wound culture was positive for MRSA resistant to multiple antibiotics, Klebsiella pneumoniae, and Klebsiella oxytoca . He was transitioned to IV Levaquin and oral Bactrim. Cellulitis improved significantly with antibiotics. During hospitalization, patient developed an episode of psychosis with auditory and visual hallucinations on 08/31. Psychiatry was consulted. Symptoms were deemed chronic as patient does have a history of PTSD with intermittent psychosis. Dr. Rojas (psych) recommended continuing current medications with Olanzapine, Buspar, and Prozac. He will need to follow up with psychiatrist at the [facility]. On 09/03, patient is deemed stable for discharge home with oral Levaquin and Bactrim to complete 14-day course of antibiotics. He will need to follow up with PCP within one week and get set up with wound care as an outpatient. Pt Condition on Discharge: Stable Discharge Disposition: Discharge Home Discharge Instructions DIET: Follow Instructions for: Heart Healthy Diet Activities you can perform: Regular-No Restrictions Follow up Referrals: PCP Follow-up - 2-3 Days Wound Care [facility] - Next Day New Medications: Levofloxacin (Levaquin) 750 Mg Tab 750 MG PO DAILY Infection #10 Ref 0 TAB Sulfamethoxazole-Trimethoprim (Bactrim DS) 800-160 Mg Tab 1 TAB PO Q12HR #20 TAB Continued Medications: Albuterol Neb (Albuterol Neb) 2.5 Mg/3 Ml Neb 2.5 MG NEB BID Shortness Of Breath #1 Ref 0 NEBULE Aluminum Hydroxide-Mag Trisil (Gaviscon) 80-14.2 mg Chew 2 TAB CHEW TIDAC Maximum 16 tabs/24 hrs PRN UPSET STOMACH Ref 0 TAB Amlodipine (Norvasc) 10 Mg Tab 10 MG PO DAILY Blood Pressure Management #[address] Ref [address] (Aspirin Adult Low Strength) 81 Mg Tabdr 81 MG PO DAILY TAB Budesonide-Formoterol Inh (Symbicort Inh) 160-4.5 Mcg/Act Aero 2 PUFF INH BID #1 Ref 0 INHALER Buspirone (Buspirone) 10 Mg Tab 20 MG PO TID Anxiety Ref 0 TAB Jeibqjpjul-Synpddvsbggqq-Nedkodtq-Codeine (Fioricet-Codeine) 70-333-80-30 Mg Cap 1 CAP PO TID Do not exceed 6 capsules/day. No more than twice a week. PRN HEADACHE Ref 0 CAP Cholecalciferol (Vitamin D3) 2,000 Unit Tab 2000 UNITS PO DAILY Nutritional Supplement #1 Ref 0 BOTTLE Cyanocobalamin (Vitamin B-12) 1,000 Mcg Tab 1000 MCG PO DAILY Nutritional Supplement #1 Ref 0 BOTTLE Docusate Sodium (Colace) 100 Mg Cap 100 MG PO BID PRN Constipation #60 Ref [address] (Nexium) 40 Mg Capdr 40 MG PO DAILY Ref 0 CAP Ferrous Sulfate (Ferrous Sulfate) 325 Mg Tab 325 MG PO BID Nutritional Supplement #30 Ref 0 TAB Fluoxetine (Prozac) 40 Mg Cap 40 MG PO DAILY #30 Ref 0 CAP Folic Acid (Folate) 1 Mg Tab 1 MG PO EVERY OTHER DAY Nutritional Supplement Ref 0 TAB Levothyroxine (Levothyroxine) 25 Mcg Tab 25 MCG PO DAILY Thyroid #30 Ref 0 TAB Loratadine (Claritin) 10 Mg Tab 10 MG PO DAILY Allergy Management Ref 0 TAB Metoprolol Tartrate (Metoprolol Tartrate) 25 Mg Tab 12.5 MG PO BID #60 Ref 0 TAB Nitroglycerin SL (Nitrostat SL) 0.4 Mg Subl 0.4 MG SL DIRECTED 1 tablet under the tongue as needed for chest pain. Repeat every 5 minutes for a total of 3 DOSES or call 911 if NO relief. PRN CHEST PAIN #100 Ref 0 TAB.SL Olanzapine (Olanzapine) 20 Mg Tab 20 MG PO DAILY #30 Ref 0 TAB Polyethylene Glycol 3350 Powder (Miralax Powder) 17 Gm Powd 17 GM PO BID Mix and dissolve one measuring capful (17 grams) in water or juice. PRN CONSTIPATION #1 Ref 0 BOTTLE Prazosin (Minipress) 5 Mg Cap 7 MG PO HS Take 1 capsule (5mg) with 2mg capsule for a total dose of 7mg Blood Pressure Management #60 Ref 0 CAP Prazosin (Minipress) 2 Mg Cap 7 MG PO HS Take 1 capsule (2mg) with 5mg capsule for a total dose of 7mg Blood Pressure Management #60 Ref 0 CAP Ranitidine (Zantac) 300 Mg Tab 300 MG PO BID Ref 0 TAB Rosuvastatin (Crestor) 40 Mg Tab 40 MG PO HS Cholesterol Management #30 Ref 0 TAB Tiotropium Inh (Spiriva Handihaler) 18 Mcg Cap 1 PUFF INH DAILY 1 capsule = 18 mcg COPD #30 Ref 0 CAP Discontinued Medications: Ropinirole (Requip) 0.25 Mg Tab 0.25 MG PO HS #30 Ref 0 TAB Ni Blackman MD R3 Sep 02, 2016 13:16
== END 2016-09-02 12:43 | disposition home or self-care (01) | DRG 603 ==
LOC: NEPE 08:44 → NEDA 11:00 → N07B 13:34
PROVIDERS: ADMIT Family Medicine; ATTEND Family Medicine
DX: L03.113 Cellulitis of right upper limb (principal); N17.9 Acute kidney failure, unspecified; C91.10 Chronic lymphocytic leukemia of B-cell type not having achieved remission; J44.9 Chronic obstructive pulmonary disease, unspecified; J98.11 Atelectasis; F23 Brief psychotic disorder; B95.62 Methicillin resistant Staphylococcus aureus infection as the cause of diseases classified elsewhere; E03.9 Hypothyroidism, unspecified; E78.5 Hyperlipidemia, unspecified; G47.30 Sleep apnea, unspecified; I10 Essential (primary) hypertension; G25.81 Restless legs syndrome; I25.10 Atherosclerotic heart disease of native coronary artery without angina pectoris; I25.2 Old myocardial infarction; K21.9 Gastro-esophageal reflux disease without esophagitis; L02.413 Cutaneous abscess of right upper limb; N40.0 Benign prostatic hyperplasia without lower urinary tract symptoms; Z66 Do not resuscitate; F17.200 Nicotine dependence, unspecified, uncomplicated; Z79.899 Other long term (current) drug therapy; Z85.048 Personal history of other malignant neoplasm of rectum, rectosigmoid junction, and anus; Z86.010 Personal history of colon polyps; Z86.14 Personal history of Methicillin resistant Staphylococcus aureus infection; Z86.711 Personal history of pulmonary embolism; Z87.11 Personal history of peptic ulcer disease; F43.10 Post-traumatic stress disorder, unspecified; F12.90 Cannabis use, unspecified, uncomplicated
CPT/HCPCS: 71010; 73201; 80048; 80053; 80202; 83605; 85007; 85025; 85027; 85652; 86403; 86850; 86900; 86901; 87040; 87070; 87077; 87147; 87186; 87205; 90732; 94664; 96365; 96367; J1630; J1644; J1956; J2543; J3370; J7030; J7050; J7613; Q9967

== ENCOUNTER 2016-11-23 17:22 | Inpatient (IN) | payer OTHER, MEDICARE ==
[~2016-11-23] VITALS: Ht 180.3 cm; Wt 100.0 kg
[~2016-11-23 17:22] MED LIST changes: +LEVA750T PO; -PROB1TAB4 PO; -ROPI.25 PO; -[UNRECOGNIZED DRUG - CODE] TOP
[2016-11-23 17:24] VITALS: BP 139/82; PULSE 82; RESP 15; TEMP 98.4; O2SAT 97
--- NOTE | 2016-11-23 17:50 | PD ---
Physical Exam Time Seen by Provider: 17:48 Narrative L leg swelling for one month. Also C/o R elbow swelling from a fall one week ago. Vital signs reviewed. Seen at triage desk. Awaiting bed placement. Data Data Last Documented VS Vital Signs Date Time Temp Pulse Resp B/P Pulse Ox O2 Delivery O2 Flow Rate FiO2 11/23/16 17:24 98.4 82 15 139/82 97 MDM Medical Record Reviewed: Yes Supervised Visit with ADILSON: Bj Arita Nov 23, 2016 17:50
--- NOTE | 2016-11-23 18:48 | PD ---
HPI Chief Complaint: Edema Time Seen by Provider: 18:44 Travel History International Travel<30 days: No Contact w/Intl Traveler<30days: No Traveled to known affect area: No History of Present Illness HPI 66-year-old male presents to the emergency department for evaluation of right elbow swelling after he fell on , 8 days ago. He states he fell on his right elbow and has had swelling since. He also states that he has right foot pain from a fall on Saturday. Patient denies any other injuries from these falls. He states both of these falls were trip and falls. He denies any head injury or LOC. No neck pain or back pain. No chest pain or abdominal pain. No nausea or vomiting. Patient states that also why he is here he would like to have his left leg checked out to see if [facility] can [facility]. He states he has a venous issue and has had swelling in his left leg for the past month. He is supposed to wear compression stockings. He has been on antibiotics, doxycycline and Bactrim, just took his last dose today. Patient was on these antibiotics for 15 days. He denies any worsening symptoms at this point. He states he has not had an ultrasound done on the left leg. PFSH Past Medical History Hx Anticoagulant Therapy: Yes (asa daily) Autoimmune Disease: No Blood Disorders: No Anxiety: Yes Depression: Yes Heart Rhythm Problems: No Cancer: Yes ( RECTAL) Cardiac Catheterization: No Cardiovascular Problems: Yes (HTN) High Cholesterol: Yes Chest Pain: Yes ("OCASSIONALLY" ) Congestive Heart Failure: No Cerebrovascular Accident: No Diabetes: No Diminished Hearing: No Endocrine: Yes Gastrointestinal Disorders: Yes (COLONIC POLYPS) GERD: Yes Genitourinary: Yes (ENLARGED PROSTATE--DID SELF CATHETERIZATION FOR A TIME) Headaches: Yes Hepatitis: No Hiatal Hernia: Yes Heparin Induced Thrombocytopen: No Hypertension: Yes Immune Disorder: No Implanted Vascular Access Dvce: No Medical other: Yes (PULMONARY EMBOLI, RESTLESS LEG SYNDROME) Musculoskeletal: Yes (CHRONIC NECK AND BACK PAIN; RIGHT SCIATICA) Psychiatric: Yes (DISSOCIATIVE DISORDER, PTSD) Reproductive: No Respiratory: Yes (PE) Migraines: No Myocardial Infarction: Yes Sleep Apnea: Yes Thyroid Disease: Yes Ulcer: Yes (PUD) Past Surgical History Abdominal Surgery: No AICD: No Body Medical Devices: CERVICAL HARDWARE Cardiac Surgery: No Coronary Artery Bypass Graft: No Ear Surgery: No Endocrine Surgery: No Eye Surgery: No Genitourinary Surgery: No Gynecologic Surgery: No Joint Replacement: No Neurologic Surgery: Yes (CERVICAL / FUSION APR 03) Oral Surgery: Yes (TONSILLECTOMY) Pacemaker: No Thoracic Surgery: No Tonsillectomy: Yes Other Surgery: Yes (CARPEL TUNNEL SURGERY) Family History Family Myocardial Infarction: No Social History Alcohol Use: No Tobacco Use: Yes (07/28ppd) Substance Use: No Allergies-Medications (Allergen,Severity, Reaction): Coded Allergies: *MDRO Multi-Drug Resistant Organism (Verified Adverse Reaction, Unknown, ) MRSA (finger)-06/29/16; (arm)-08/28/16 Reported Meds & Prescriptions Reported Meds & Active Scripts Active Levaquin (Levofloxacin) 750 Mg Tab 750 Mg PO DAILY Bactrim DS (Sulfamethoxazole-Trimethoprim) 800-160 Mg Tab 1 Tab PO Q12HR Reported Spiriva Handihaler (Tiotropium Inh) 18 Mcg Cap 1 Puff INH DAILY 1 capsule = 18 mcg Crestor (Rosuvastatin Calcium) 40 Mg Tab 40 Mg PO HS Zantac (Ranitidine HCl) 300 Mg Tab 300 Mg PO BID Olanzapine 20 Mg Tab 20 Mg PO DAILY Nitrostat SL (Nitroglycerin) 0.4 Mg Subl 0.4 Mg SL DIRECTED PRN 1 tablet under the tongue as needed for chest pain. Repeat every 5 minutes for a total of 3 DOSES or call 911 if NO relief. Vitamin B-12 (Cyanocobalamin) 1,000 Mcg Tab 1,000 Mcg PO DAILY Miralax Powder (Polyethylene Glycol 3350 Powder) 17 Gm Powd 17 Gm PO BID PRN Mix and dissolve one measuring capful (17 grams) in water or juice. Minipress (Prazosin HCl) 2 Mg Cap 7 Mg PO HS Take 1 capsule (2mg) with 5mg capsule for a total dose of 7mg Minipress (Prazosin HCl) 5 Mg Cap 7 Mg PO HS Take 1 capsule (5mg) with 2mg capsule for a total dose of 7mg Metoprolol Tartrate 25 Mg Tab 12.5 Mg PO BID Claritin (Loratadine) 10 Mg Tab 10 Mg PO DAILY Levothyroxine (Levothyroxine Sodium) 25 Mcg Tab 25 Mcg PO DAILY Gaviscon (Aluminum Hydroxide-Mag Trisil) 80-14.2 mg Chew 2 Tab CHEW TIDAC PRN Maximum 16 tabs/24 hrs Folate (Folic Acid) 1 Mg Tab 1 Mg PO EVERY OTHER DAY Prozac (Fluoxetine HCl) 40 Mg Cap 40 Mg PO DAILY Ferrous Sulfate 325 Mg Tab 325 Mg PO BID Nexium (Esomeprazole DR) 40 Mg Capdr 40 Mg PO DAILY Colace (Docusate Sodium) 100 Mg Cap 100 Mg PO BID PRN Vitamin D3 (Cholecalciferol) 2,000 Unit Tab 2,000 Units PO DAILY Fioricet-Codeine (Neqiapwipv-Hfjlgbgpimdcx-Thrrghwh-Codeine) 51-243-18-30 Mg Cap 1 Cap PO TID PRN Do not exceed 6 capsules/day. No more than twice a week. Buspirone (Buspirone HCl) 10 Mg Tab 20 Mg PO TID Symbicort Inh (Budesonide/Formoterol Fumarate) 160-4.5 Mcg/Act Aero 2 Puff INH BID Aspirin Adult Low Strength (Aspirin) 81 Mg Tabdr 81 Mg PO DAILY Norvasc (Amlodipine Besylate) 10 Mg Tab 10 Mg PO DAILY Review of Systems Except as stated in HPI: all other systems reviewed are Neg Physical Exam Narrative GENERAL: Well-nourished, well-developed male patient, afebrile. SKIN: Focused skin assessment warm/dry. HEAD: Normocephalic. Atraumatic. EYES: No scleral icterus. No injection or drainage. NECK: Supple, trachea midline. No JVD or lymphadenopathy. CARDIOVASCULAR: Regular rate and rhythm without murmurs, gallops, or rubs. RESPIRATORY: Breath sounds equal bilaterally. No accessory muscle use. Lungs sounds are clear to auscultation. GASTROINTESTINAL: Abdomen soft, non-tender, nondistended. MUSCULOSKELETAL: No cyanosis. Bilateral radial and pedal pulses 2+. Patient has apparent olecranon bursitis to the right elbow. No significant erythema or warmth noted. He also has tenderness over the right lateral foot. Left lower extremity has 2+ edema with mild-moderate erythema and warmth. BACK: Nontender without obvious deformity. No CVA tenderness. Data Data Last Documented VS Vital Signs Date Time Temp Pulse Resp B/P Pulse Ox O2 Delivery O2 Flow Rate FiO2 11/23/16 21:00 56 16 147/77 95 Room Air 11/23/16 17:24 98.4 Orders Iv Access Insert/Monitor (11/23/16 18:41) Complete Blood Count With Diff (11/23/16 18:41) Basic Metabolic Panel (Bmp) (11/23/16 18:41) Act Partial Throm Time (Ptt) (11/23/16 18:41) Prothrombin Time / Inr (Pt) (11/23/16 18:41) Foot, Complete (Kea1qcr) (11/23/16 ) Elbow, Complete (4 Vws) (11/23/16 ) Us Leg Venous Doppler (11/23/16 ) Blood Culture (11/23/16 21:05) Lactic Acid Sepsis Protocol (11/23/16 21:05) Vancomycin Inj (Vancomycin Inj) (11/23/16 21:15) Tetanus/Diphtheria Tox Adult (Tetanus/Di (11/23/16 21:15) Admit Order (Ed Use Only) (11/23/16 21:17) Labs Laboratory Tests Test 11/23/16 11/23/16 18:44 21:15 White Blood Count 15.2 TH/MM3 Red Blood Count 4.67 MIL/MM3 Hemoglobin 12.6 GM/DL Hematocrit 39.7 % Mean Corpuscular Volume 85.1 FL Mean Corpuscular Hemoglobin 26.9 PG Mean Corpuscular Hemoglobin 31.6 % Concent Red Cell Distribution Width 14.9 % Platelet Count 149 TH/MM3 Mean Platelet Volume 8.6 FL Neutrophils (%) (Auto) 34.2 % Lymphocytes (%) (Auto) 56.4 % Monocytes (%) (Auto) 6.6 % Eosinophils (%) (Auto) 2.6 % Basophils (%) (Auto) 0.2 % Neutrophils # (Auto) 5.2 TH/MM3 Lymphocytes # (Auto) 8.6 TH/MM3 Monocytes # (Auto) 1.0 TH/MM3 Eosinophils # (Auto) 0.4 TH/MM3 Basophils # (Auto) 0.0 TH/MM3 CBC Comment AUTO DIFF Differential Total Cells 100 Counted Neutrophils % (Manual) 32 % Band Neutrophils % 1 % Lymphocytes % 60 % Monocytes % 2 % Eosinophils % 4 % Basophils % 1 % Neutrophils # (Manual) 5.0 TH/MM3 Differential Comment FINAL DIFF MANUAL Platelet Estimate LOW Platelet Morphology Comment NORMAL Ovalocytes 1+ Prothrombin Time 11.1 SEC Prothromb Time International 1.0 RATIO Ratio Activated Partial 25.3 SEC Thromboplast Time Sodium Level 139 MEQ/L Potassium Level 3.7 MEQ/L Chloride Level 105 MEQ/L Carbon Dioxide Level 27.9 MEQ/L Anion Gap 6 MEQ/L Blood Urea Nitrogen 31 MG/DL Creatinine 1.25 MG/DL Estimat Glomerular Filtration 58 ML/MIN Rate Random Glucose 86 MG/DL Calcium Level 9.8 MG/DL Lactic Acid Level 0.8 mmol/L MDM Medical Decision Making Medical Screen Exam Complete: Yes Emergency Medical Condition: Yes Medical Record Reviewed: Yes Interpretation(s) Last Impressions Lower Extremity Ultrasound 11/23/16 0000 Signed Impressions: Service Date/Time: Wednesday, November 23, 2016 19:31 - CONCLUSION: 1. No evidence of deep venous thrombosis. 2. Moderate size Tavares's cyst in the popliteal fossa region. 3. Prominent lymph nodes in the left groin. Julian Ashby MD Foot X-Ray 11/23/16 0000 Signed Impressions: Service Date/Time: Wednesday, November 23, 2016 18:52 - CONCLUSION: 1. No acute fracture or malalignment. 2. Mild osteoarthritic change. 3. Small spur off the inferior calcaneus. uJlian Ashby MD Elbow X-Ray 11/23/16 0000 Signed Impressions: Service Date/Time: Wednesday, November 23, 2016 18:49 - CONCLUSION: Focal soft tissue swelling over the olecranon which could indicate bursitis. There is no definite underlying bony abnormality or effusion. Julian Ashby MD Differential Diagnosis Olecranon bursitis versus septic bursitis versus fracture versus contusion versus chronic edema versus DVT versus cellulitis Narrative Course 66-year-old male presents to the emergency department for evaluation right elbow injury for 1 week, right foot injury for 5 days, swelling to the left leg for one month. CBC, BMP, PTT, PTT/INR ordered and pending. X-ray of the right elbow, right foot, venous Doppler ultrasound of the left leg are ordered and pending. Tetanus immunization is updated. CBC shows leukocytosis 15.2, neutrophils normal at 34.2, lymphocytes 56.4. BMP shows elevated BUN at 31. Coags are unremarkable. Right elbow x-ray shows focal soft tissue swelling over the olecranon which could be bursitis, no definite underlying bony abnormality or effusion. Right foot x-ray shows no acute fracture or malalignment. US of the left leg shows no evidence of deep venous thrombosis; moderate size Tavares's cyst in the popliteal fossa region, prominent lymph nodes in the left groin. Blood cultures 2, lactic acid are ordered and pending. Patient is given vancomycin 1 g IV. Patient will be admitted for cellulitis, failed outpatient treatment. [facility] is paged for admission. Dr. Rodriguez accepted Diagnosis Primary Impression: Cellulitis of left lower extremity Additional Impression: Failure of outpatient treatment Admitting Information Admitting Physician Requests: Geetha Quiros Nov 23, 2016 18:48
--- NOTE | 2016-11-23 19:08 | RADRPT ---
EXAM DATE/TIME: 11/23/2016 18:49 [facility] COMPARISON: No previous studies available for comparison. INDICATIONS : Right elbow pain, swelling post fall 1 week ago MEDICAL HISTORY : None. SURGICAL HISTORY : None. ENCOUNTER: Initial ACUITY: 1 week PAIN SCORE: 5/10 LOCATION: Right posterior elbow FINDINGS: Multiple view examination of the right elbow demonstrates no evidence of a joint effusion or fracture . The osseous structures are in normal alignment. Bony mineralization is normal. Extensive focal so ft tissue swelling is noted over the olecranon. CONCLUSION: Focal soft tissue swelling over the olecranon which could indicate bursitis. There is no definite und erlying bony abnormality or effusion. Julian Ashby MD on November 23, 2016 at 19:05 Board Certified Radiologist. This report was verified electronically.
--- NOTE | 2016-11-23 19:09 | RADRPT ---
EXAM DATE/TIME: 11/23/2016 18:52 [facility] COMPARISON: No previous studies available for comparison. INDICATIONS : Right foot pain post fall 1 week ago MEDICAL HISTORY : None. SURGICAL HISTORY : None. ENCOUNTER: Initial ACUITY: 1 week PAIN SCORE: 6/10 LOCATION: Right entire foot FINDINGS: Three view examination of the right foot demonstrates no soft tissue swelling, dislocation, or fractu re. The tarsal bones appear intact. The interphalangeal and metatarsophalangeal joints are intact with mild degenerative change. The calcaneus is intact. Mild degenerative changes noted in the tibiot alar joint as well. Bony mineralization is normal. There is a small spur off the inferior calcaneus. CONCLUSION: 1. No acute fracture or malalignment. 2. Mild osteoarthritic change. 3. Small spur off the inferior calcaneus. Julian Ashby MD on November 23, 2016 at 19:06 Board Certified Radiologist. This report was verified electronically.
[2016-11-23 19:10] LABS: AUTOMATED NEUTROPHIL # 5.2 TH/MM3 (1.8-7.7); BASOPHIL % 0.2 % (0.0-2.0); EOSINOPHIL # 0.4 TH/MM3 (0-0.4); EOSINOPHIL % 2.6 % (0.0-4.0); HEMATOCRIT 39.7 % (39.0-51.0); LYMPH % 56.4 % (9.0-44.0); LYMPHOCYTE # 8.6 TH/MM3 (1.0-4.8); MEAN CELL VOLUME 85.1 FL (80.0-100.0); MEAN CORPUSCULAR HEMOGLOBIN 26.9 PG (27.0-34.0); MEAN CORPUSCULAR HGB CONC 31.6 % (32.0-36.0); MONO % 6.6 % (0.0-8.0); NEUT % 34.2 % (16.0-70.0); PLATELET COUNT 149 TH/MM3 (150-450); RED BLOOD COUNT 4.67 MIL/MM3 (4.50-5.90); RED CELL DISTRIBUTION WIDTH 14.9 % (11.6-17.2); WHITE BLOOD COUNT 15.2 TH/MM3 (4.0-11.0)
[2016-11-23 19:18] LABS: APTT (PATIENT) 25.3 SEC (24.3-30.1); PROTHROMBIN TIME - PATIENT 11.1 SEC (9.8-11.6)
[2016-11-23 19:21] LABS: BICARBONATE 27.9 MEQ/L (21.0-32.0); POTASSIUM 3.7 MEQ/L (3.5-5.1)
[2016-11-23 19:23] LABS: HEMO FLAGS AUTO DIFF
[2016-11-23 20:03] LABS: BANDS 1 % (0-6); BASOPHILS 1 % (0-2); EOSINOPHILS 4 % (0-4); POLYS (SEG NEUTROPHILS) 32 % (16-70); WBC DIFF SAMPLE 100
[2016-11-23 20:05] LABS: OVALOCYTES 1+ (NORMAL); PLATELET ESTIMATE SMEAR LOW (NORMAL); PLATELET MORPHOLOGY NORMAL (NORMAL)
[2016-11-23 20:06] LABS: SCAN/DIFF FINAL DIFF MANUAL
--- NOTE | 2016-11-23 20:29 | RADRPT ---
EXAM DATE/TIME: 11/23/2016 19:31 [facility] COMPARISON: No previous studies available for comparison. INDICATIONS : Left leg swelling. MEDICAL HISTORY : Hypertension. Myocardial infarction. Hypercholesterolemia. Thyroid disease. Glasses. Upper and low er dentures. Numbness right leg into toes. Dizziness. Anticoagulant therapy. Chest pain. Sleep apnea. Dyspnea. Hiatal hernia. Gastroesophageal refulx. BPH. Rectal cancer. SURGICAL HISTORY : Tonsillectomy. Cervical 4 and 5 fusion. Carpal tunnel surgery. ENCOUNTER: Initial ACUITY: 1 week PAIN SCORE: 7/10 LOCATION: Left leg. TECHNIQUE: Venous ultrasound of the leg was performed from the inguinal ligament to the proximal calf. Real-andrea e, color Doppler and spectral tracing, compression and augmentation techniques were used. FINDINGS: There is normal compressibility of the deep venous system from the inguinal region to the proximal ca lf. No echogenic clot is seen in the lumen of the common femoral, femoral, popliteal, and posterior tibial veins. There is a normal response of the venous system to proximal and distal augmentation an d respiration. A cystic structure is noted in the popliteal fossa region measuring up to approximate ly 3.6 x 1.6 x 2.4 cm in diameter. Prominent lymph nodes were noted in the right left groin. CONCLUSION: 1. No evidence of deep venous thrombosis. 2. Moderate size Tavares's cyst in the popliteal fossa region. 3. Prominent lymph nodes in the left groin. Julian Ashby MD on November 23, 2016 at 20:26 Board Certified Radiologist. This report was verified electronically.
[2016-11-23 21:00] VITALS: BP 147/77; PULSE 56; RESP 16; O2SAT 95
[2016-11-23] MEDS ORDERED: TETANUS/DIPHTHERIA TOXOID ADULT 0.5 ML VIAL IM ONE (21:15)
[2016-11-23] MEDS ORDERED: VANCOMYCIN INJ 1,000 MG in SODIUM CHLOR 0.9% 250 ML INJ 250 ML IV ONE (21:15)
[2016-11-23] MEDS ORDERED: MAGNESIUM HYDROXIDE SUSP 30 ML CUP PO PRN (21:30)
[2016-11-23] MEDS ORDERED: SODIUM CHLORIDE 0.9% FLUSH 10 ML FLUSH IV FLUSH PRN (21:30)
[2016-11-23] MEDS ORDERED: SENNOSIDES 8.6 MG TAB PO PRN (21:30)
[2016-11-23] MEDS ORDERED: Vancomycin Consult Pharmacy 1 EA OTHER SCH (21:30)
[2016-11-23] MEDS ORDERED: LACTULOSE SYRUP 20 GM/30 ML CUP PO PRN (21:30)
[2016-11-23] MEDS ORDERED: BISACODYL 10 MG SUPP RECTAL PRN (21:30)
[2016-11-23] MEDS ORDERED: ONDANSETRON HCL 4 MG/2 ML VIAL IVP PRN (21:30)
[2016-11-23] MEDS ORDERED: VANCOMYCIN INJ 1,250 MG in SODIUM CHLOR 0.9% 250 ML INJ 250 ML IV SCH (21:30)
[2016-11-23] MEDS ORDERED: ACETAMINOPHEN 325 MG TAB PO PRN (21:30)
[2016-11-23] MEDS ORDERED: VANCOMYCIN INJ 2,000 MG in SODIUM CHLORID 0.9% 500 ML INJ 500 ML IV ONE (23:00)
[2016-11-23] MEDS: PIPERACIL-TAZO 4.5 GM PREMIX 100 ML IV SCH (23:16)
[2016-11-24] VITALS: BP 126/73; PULSE 88; RESP 20; TEMP 96; O2SAT 97
[2016-11-24] MEDS ORDERED: MISCELLANEOUS NURSING INFORMATION PRN (00:30)
[2016-11-24] MEDS ORDERED: D 101000 (01:32)
[2016-11-24] MEDS ORDERED: MOBI15TA PO (01:32)
[2016-11-24] MEDS ORDERED: ROPI0.5T PO (01:32)
[2016-11-24] MEDS ORDERED: ARIP1TAB13 PO (01:32)
[2016-11-24] MEDS ORDERED: PRAZ2CAP PO (01:32)
[2016-11-24] MEDS ORDERED: BACL20TA PO (01:32)
[2016-11-24] MEDS ORDERED: BUPR75TA PO (01:32)
[2016-11-24] MEDS ORDERED: TYLE325T PO (01:32)
[2016-11-24] MEDS ORDERED: LISI-519 PO (01:32)
[2016-11-24] MEDS ORDERED: MIRT45TA PO (01:32)
[2016-11-24] MEDS ORDERED: DICL1GEL7 TOPICAL (01:32)
[2016-11-24] MEDS ORDERED: PRAZ5CAP PO (01:32)
[2016-11-24] MEDS: PIPERACIL-TAZO 4.5 GM PREMIX 100 ML IV SCH ×3 (05:57→22:22)
--- NOTE | 2016-11-24 06:29 | HHI.HP ---
[facility] Admission Diagnosis left lower leg cellulitis; failed outpatient treatment Diagnoses: Chief Complaint: left lower leg swelling Travel History International Travel<30 Days: No Contact w/Intl Traveler <30 Da: No Traveled to Known Affected Are: No History of Present Illness Written by Aileen Delatorre, acting as scribe for Dr. Rodriguez on 11/24/16 at 06:25. The patient states, "my leg swelled up, it's been that way about a month" without associated pain. He has been on Doxycycline and Bactrim from [place] x 2 weeks with no improvement. Doppler U/S in ED showed no DVT, moderate size Tavares cyst in the popliteal fossa and prominent lymph nodes in the left groin. Fever and chills a couple of weeks ago. Denies n/v/d or chest pain. Fell last Saturday and right elbow is swollen, red, tender c/w olecranon bursitis. . Review of Systems Except as stated in HPI: all other systems reviewed are Neg Past Family Social History Past Medical History Hypertension Hyperlipidemia PTSD Denies having diabetes mellitus . Past Surgical History Right shoulder repair Cervical spine repair for herniated disc with titanium plate . Reported Medications Reported Meds & Active Scripts Active Levaquin (Levofloxacin) 750 Mg Tab 750 Mg PO DAILY Bactrim DS (Sulfamethoxazole-Trimethoprim) 800-160 Mg Tab 1 Tab PO Q12HR Reported Ropinirole 0.5 Mg Tab 0.5 Mg PO HS Prazosin (Prazosin HCl) 5 Mg Cap 5 Mg PO QHS Prazosin (Prazosin HCl) 2 Mg Cap 2 Mg PO DAILY Mirtazapine 45 Mg Tab 45 Mg PO HS Mobic (Meloxicam) 15 Mg Tab 15 Mg PO DAILY Lisinopril 5 Mg Tab 5 Mg PO DAILY Diclofenac Topical 1% Gel 1 Applic TOPICAL QID D 1000 (Cholecalciferol) 1,000 Unit Cap Bupropion HCl 75 Mg Tab 75 Mg PO BID Baclofen 20 Mg Tab 20 Mg PO TID Aripiprazole 15 Mg Tab 15 Mg PO DAILY Tylenol (Acetaminophen) 325 Mg Tab 325 Mg PO ONCE Spiriva Handihaler (Tiotropium Inh) 18 Mcg Cap 1 Puff INH DAILY 1 capsule = 18 mcg Crestor (Rosuvastatin Calcium) 40 Mg Tab 40 Mg PO HS Zantac (Ranitidine HCl) 300 Mg Tab 300 Mg PO BID Olanzapine 20 Mg Tab 20 Mg PO DAILY Nitrostat SL (Nitroglycerin) 0.4 Mg Subl 0.4 Mg SL DIRECTED PRN 1 tablet under the tongue as needed for chest pain. Repeat every 5 minutes for a total of 3 DOSES or call 911 if NO relief. Vitamin B-12 (Cyanocobalamin) 1,000 Mcg Tab 1,000 Mcg PO DAILY Miralax Powder (Polyethylene Glycol 3350 Powder) 17 Gm Powd 17 Gm PO BID PRN Mix and dissolve one measuring capful (17 grams) in water or juice. Minipress (Prazosin HCl) 2 Mg Cap 7 Mg PO HS Take 1 capsule (2mg) with 5mg capsule for a total dose of 7mg Minipress (Prazosin HCl) 5 Mg Cap 7 Mg PO HS Take 1 capsule (5mg) with 2mg capsule for a total dose of 7mg Metoprolol Tartrate 25 Mg Tab 12.5 Mg PO BID Claritin (Loratadine) 10 Mg Tab 10 Mg PO DAILY Levothyroxine (Levothyroxine Sodium) 25 Mcg Tab 25 Mcg PO DAILY Gaviscon (Aluminum Hydroxide-Mag Trisil) 80-14.2 mg Chew 2 Tab CHEW TIDAC PRN Maximum 16 tabs/24 hrs Folate (Folic Acid) 1 Mg Tab 1 Mg PO EVERY OTHER DAY Prozac (Fluoxetine HCl) 40 Mg Cap 40 Mg PO DAILY Ferrous Sulfate 325 Mg Tab 325 Mg PO BID Nexium (Esomeprazole DR) 40 Mg Capdr 40 Mg PO DAILY Colace (Docusate Sodium) 100 Mg Cap 100 Mg PO BID PRN Vitamin D3 (Cholecalciferol) 2,000 Unit Tab 2,000 Units PO DAILY Fioricet-Codeine (Vybgrqjvle-Ogndskxegobwl-Etqodnoz-Codeine) 67-483-77-30 Mg Cap 1 Cap PO TID PRN Do not exceed 6 capsules/day. No more than twice a week. 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 Ordered Medications Current Medications Vancomycin HCl/ Sodium Chloride (Vancomycin Inj/ NS 250 ml Inj) 250 ml @ 250 mls/hr ONCE ONCE IV Last administered on 11/23/16 21:51; Start 11/23/16 at 21 :15; Stop 11/23/16 at 22:13; Status DC Tetanus/ Diphtheria Toxoids (Tetanus/ Diphtheria Tox Adult) 0.5 ml ONCE ONCE IM Last administered on 11/23/16 21:51; Start 11/23/16 at 21:15; Stop 11/23/16 at 21:16; Status DC Sodium Chloride (NS Flush) 2 ml UNSCH PRN IV FLUSH FLUSH AFTER USING IV ACCESS ; Start 11/23/16 at 21:30 Sodium Chloride (NS Flush) 2 ml BID IV FLUSH ; Start 11/24/16 at 09:00 Acetaminophen (Tylenol) 650 mg Q4H PRN PO TEMP > 100.4; Start 11/23/16 at 21:30 Ondansetron HCl (Zofran Inj) 4 mg Q6H PRN IVP NAUSEA OR VOMITING; Start at 21:30 Enoxaparin Sodium (Lovenox Inj) 40 mg Q24H SQ ; Start 11/24/16 at 09:00 Senna/Docusate Sodium (Angelina-Colace) 1 tab BID PO ; Start 11/24/16 at 09:00 Magnesium Hydroxide (Milk Of Magnesia Liq) 30 ml Q12H PRN PO MILD - MODERATE CONSTIPATION; Start 11/23/16 at 21:30 Sennosides (Senokot) 17.2 mg Q12H PRN PO MODERATE - SEVERE CONSTIPATION; Start 11/23/16 at 21:30 Bisacodyl (Dulcolax Supp) 10 mg DAILY PRN RECTAL SEVERE CONSITIPATION; Start at 21:30 Lactulose 30 ml 30 ml DAILY PRN PO SEVERE CONSITIPATION; Start 11/23/16 at 21: 30 Vancomycin HCl 1250 mg/Sodium Chloride 262.5 ml @ 262.5 mls/ hr Q12H IV ; Start 11/23/16 at 21:30; Status [facility] Pharmacy Profile Note 0 ml @ 0 mls/hr UNSCH OTHER ; Start 11/23/16 at 21:30 Piperacillin Sod/ Tazobactam Sod 100 ml @ 200 mls/hr Q8H IV Last administered on 11/24/16t 05:57; Start 11/23/16 at 22:00 Vancomycin HCl/ Sodium Chloride (Vancomycin Inj/ NS 500 ml Inj) 520 ml @ 250 mls/hr ONCE ONCE IV ; Start 11/23/16 at 23:00; Stop 11/24/16 at 01:04; Status DC Miscellaneous Information FLU SHOTS NOT AVAILABLE UNSCH PRN .XX FLU SHOTS; Start 11/24/16 at 00:30 Family History Mother with diabetes . Social History Tobacco: 1/2 PPD Alcohol: denies Illicit Drugs: denies Single and has no children . Physical Exam Vital Signs Vital Signs Date Time Temp Pulse Resp B/P Pulse Ox O2 Delivery O2 Flow Rate FiO2 11/24/16 00:00 96.0 88 20 126/73 97 11/23/16 21:00 56 16 147/77 95 Room Air 11/23/16 18:33 61 18 98 Room Air 11/23/16 17:24 98.4 82 15 139/82 97 Physical Exam GENERAL: This is a obese, older male patient, in no apparent distress. SKIN: No rashes, ecchymoses or lesions. Left lower extremity erythematous and edematous. HEAD: Atraumatic. Normocephalic. EYES: No scleral icterus. No injection or drainage. ENT: Nose without bleeding, purulent drainage. NECK: Trachea midline. No JVD or lymphadenopathy. CARDIOVASCULAR: Regular rate and rhythm without murmurs, gallops, or rubs. pedal pulses +1; left lower extremity edema +2 RESPIRATORY: Clear to auscultation. Breath sounds equal bilaterally. No wheezes , rales, or rhonchi. GASTROINTESTINAL: Abdomen soft, non-tender, nondistended. No guarding. MUSCULOSKELETAL: Extremities without clubbing, cyanosis. No calf tenderness. Left lower extremity erythematous and edematous. Right elbow extremely swollen , red, limited ROM> NEUROLOGICAL: Awake and alert. Motor and sensory grossly within normal limits. Normal speech. . Laboratory Laboratory Tests Test 11/23/16 11/23/16 18:44 21:15 White Blood Count 15.2 Red Blood Count 4.67 Hemoglobin 12.6 Hematocrit 39.7 Mean Corpuscular Volume 85.1 Mean Corpuscular Hemoglobin 26.9 Mean Corpuscular Hemoglobin 31.6 Concent Red Cell Distribution Width 14.9 Platelet Count 149 Mean Platelet Volume 8.6 Neutrophils (%) (Auto) 34.2 Lymphocytes (%) (Auto) 56.4 Monocytes (%) (Auto) 6.6 Eosinophils (%) (Auto) 2.6 Basophils (%) (Auto) 0.2 Neutrophils # (Auto) 5.2 Lymphocytes # (Auto) 8.6 Monocytes # (Auto) 1.0 Eosinophils # (Auto) 0.4 Basophils # (Auto) 0.0 CBC Comment AUTO DIFF Differential Total Cells 100 Counted Neutrophils % (Manual) 32 Band Neutrophils % 1 Lymphocytes % 60 Monocytes % 2 Eosinophils % 4 Basophils % 1 Neutrophils # (Manual) 5.0 Differential Comment FINAL DIFF MANUAL Platelet Estimate LOW Platelet Morphology Comment NORMAL Ovalocytes 1+ Prothrombin Time 11.1 Prothromb Time International 1.0 Ratio Activated Partial 25.3 Thromboplast Time Sodium Level 139 Potassium Level 3.7 Chloride Level 105 Carbon Dioxide Level 27.9 Anion Gap 6 Blood Urea Nitrogen 31 Creatinine 1.25 Estimat Glomerular Filtration 58 Rate Random Glucose 86 Calcium Level 9.8 Lactic Acid Level 0.8 Date/Time Procedure Status Source Growth 11/23/16 21:15 Aerobic Blood Culture Received Blood Peripheral Pending 11/23/16 21:15 Anaerobic Blood Culture Received Blood Peripheral Pending Result Diagram: 11/23/16 1844 11/23/16 1844 Imaging Last Impressions Lower Extremity Ultrasound 11/23/16 0000 Signed Impressions: Service Date/Time: Wednesday, November 23, 2016 19:31 - CONCLUSION: 1. No evidence of deep venous thrombosis. 2. Moderate size Tavares's cyst in the popliteal fossa region. 3. Prominent lymph nodes in the left groin. Julian Ashby MD Foot X-Ray 11/23/16 0000 Signed Impressions: Service Date/Time: Wednesday, November 23, 2016 18:52 - CONCLUSION: 1. No acute fracture or malalignment. 2. Mild osteoarthritic change. 3. Small spur off the inferior calcaneus. Julian Ashby MD Elbow X-Ray 11/23/16 0000 Signed Impressions: Service Date/Time: Wednesday, November 23, 2016 18:49 - CONCLUSION: Focal soft tissue swelling over the olecranon which could indicate bursitis. There is no definite underlying bony abnormality or effusion. Julian Ashby MD . Assessment and Plan Problem List: (1) Cellulitis of left lower extremity ICD Code: L03.116 Status: Acute (2) Failure of outpatient treatment ICD Code: Z78.9 Status: Acute (3) Olecranon bursitis ICD Code: M70.20 Status: Acute Assessment and Plan Cellulitis left lower extremity - failed outpatient therapy - Zosyn 4.5 g IV every 8 hours - IV vancomycin with pharmacy consultation for assistance with therapeutic monitoring and dosing - Monitor vital signs every 4 hours - Monitor I&O every shift Olecranon bursitis - right - Consider orthopedic consult DVT prophylaxis - Lovenox 40 mg subcutaneous every 24 hours This note was transcribed by melecio Delatorre. I, Dr. Luís Parker personally performed the history, physical exam, and medical decision making; and confirmed the accuracy of the information in the transcribed note. Authenticated by Dr. Luís Parker on 11/24/16 at 06:25. Discussed Condition With ER physician, patient, and RN. Physician Certification 2 Midnight Certification Type: Admission for Inpatient Services Order for Inpatient Services The services are ordered in accordance with Medicare regulations or non- Medicare payer requirements, as applicable. In the case of services not specified as inpatient-only, they are appropriately provided as inpatient services in accordance with the 2-midnight benchmark. Estimated LOS (days): 3 days is the estimated time the patient will need to remain in the hospital, assuming treatment plan goals are met and no additional complications. Post-Hospital Plan: Home Aileen Delatorre Nov 24, 2016 06:29 Luís Turner MD Nov 26, 2016 13:58
[2016-11-24 06:51] LABS: ANION GAP 6 MEQ/L (5-15); AST (GOT) 15 U/L (15-37); BLOOD UREA NITROGEN 27 MG/DL (7-18); CHLORIDE 105 MEQ/L (98-107); GLOMERULAR FILTRATION RATE 67 ML/MIN (>89); SODIUM (NA) 138 MEQ/L (136-145)
[2016-11-24 06:55] LABS: ALKALINE PHOSPHATASE 106 U/L (45-117); ALT (GPT) 17 U/L (12-78); TOTAL BILIRUBIN ADULT 0.3 MG/DL (0.2-1.0)
[2016-11-24 07:05] LABS: AUTOMATED NEUTROPHIL # 6.1 TH/MM3 (1.8-7.7); BASOPHIL % 0.1 % (0.0-2.0); EOSINOPHIL # 0.5 TH/MM3 (0-0.4); EOSINOPHIL % 2.9 % (0.0-4.0); LYMPH % 56.5 % (9.0-44.0); LYMPHOCYTE # 9.7 TH/MM3 (1.0-4.8); MEAN CELL VOLUME 84.6 FL (80.0-100.0); MEAN CORPUSCULAR HEMOGLOBIN 27.4 PG (27.0-34.0); MEAN CORPUSCULAR HGB CONC 32.4 % (32.0-36.0); MONO % 5.3 % (0.0-8.0); NEUT % 35.2 % (16.0-70.0); PLATELET COUNT 149 TH/MM3 (150-450); WHITE BLOOD COUNT 17.2 TH/MM3 (4.0-11.0)
[2016-11-24 07:33] LABS: HEMO FLAGS AUTO DIFF
[2016-11-24 08:00] VITALS: BP 130/70; PULSE 68; RESP 18; TEMP 95.6; O2SAT 95
[2016-11-24] MEDS: SODIUM CHLORIDE 0.9% FLUSH 10 ML FLUSH IV FLUSH SCH ×2 (09:05→22:23)
[2016-11-24] MEDS: ENOXAPARIN SODIUM 40 MG/0.4 ML SYRINGE SQ SCH (09:05)
[2016-11-24] MEDS: DOCUSATE SODIUM 50 MG/SENNA 8.6 MG TAB PO SCH ×2 (09:05→22:23)
[2016-11-24 10:23] LABS: EOSINOPHILS 1 % (0-4); PLATELET ESTIMATE SMEAR NORMAL (NORMAL); PLATELET MORPHOLOGY NORMAL (NORMAL); POLYS (SEG NEUTROPHILS) 29 % (16-70); WBC DIFF SAMPLE 100
[2016-11-24 10:24] LABS: OVALOCYTES 1+ (NORMAL); SCAN/DIFF FINAL DIFF MANUAL; SMUDGE CELLS PRESENT PRESENT
[2016-11-24 12:00] VITALS: BP 140/64; PULSE 75; RESP 18; TEMP 95.3; O2SAT 96
--- NOTE | 2016-11-24 14:18 | HHI.PR ---
Subjective Remarks Follow up cellulitis, olecranon bursitis. Patient reporting pain in the left lower leg. Denies chest pain, dyspnea. Feels that the swelling in the left leg is improving. Objective Vitals Vital Signs Date Time Temp Pulse Resp B/P Pulse Ox O2 Delivery O2 Flow Rate FiO2 11/24/16 12:00 95.3 75 18 140/64 96 11/24/16 08:00 95.6 68 18 130/70 95 11/24/16 00:00 96.0 88 20 126/73 97 11/23/16 21:00 56 16 147/77 95 Room Air 11/23/16 18:33 61 18 98 Room Air 11/23/16 17:24 98.4 82 15 139/82 97 I/O 11/23/16 11/23/16 11/23/16 11/24/16 11/24/16 11/24/16 07:00 15:00 23:00 07:00 15:00 23:00 Intake Total 240 ml Output Total 300 ml Balance -60 ml Intake Oral 240 ml Output Urine Total 300 ml # Bowel Movements 1 Result Diagram: 11/24/16 0549 11/24/16 0549 Imaging Last Impressions Lower Extremity Ultrasound 11/23/16 0000 Signed Impressions: Service Date/Time: Wednesday, November 23, 2016 19:31 - CONCLUSION: 1. No evidence of deep venous thrombosis. 2. Moderate size Tavares's cyst in the popliteal fossa region. 3. Prominent lymph nodes in the left groin. Julian Ashby MD Foot X-Ray 11/23/16 0000 Signed Impressions: Service Date/Time: Wednesday, November 23, 2016 18:52 - CONCLUSION: 1. No acute fracture or malalignment. 2. Mild osteoarthritic change. 3. Small spur off the inferior calcaneus. Julian Ashby MD Elbow X-Ray 11/23/16 0000 Signed Impressions: Service Date/Time: Wednesday, November 23, 2016 18:49 - CONCLUSION: Focal soft tissue swelling over the olecranon which could indicate bursitis. There is no definite underlying bony abnormality or effusion. Julian Ashby MD Objective Remarks General: No acute distress. Heart: Regular rate and rhythm. No murmur. Lungs: Clear to auscultation bilaterally. No wheezes, rales, or rhonchi. Breathing is nonlabored. Abdomen: Soft, nontender, nondistended. Extremities: No right lower extremity edema. Left lower leg with 2+ edema. There is also diffuse erythema of the left lower leg. Right elbow olecranon bursa swollen with mild overlying erythema. Psych: Alert and oriented. Procedures None Urinary Catheter: No Vascular Central Line Catheter: No A/P Problem List: (1) Cellulitis of left lower extremity ICD Code: L03.116 Status: Acute (2) Failure of outpatient treatment ICD Code: Z78.9 Status: Acute (3) Olecranon bursitis ICD Code: M70.20 Status: Acute Assessment and Plan 1. Cellulitis, left lower leg: Failed outpatient therapy. Continue vancomycin, Zosyn. 2. Olecranon bursitis: Monitor. Conservative management at this time. Consider orthopedic surgery consultation if symptoms worsen. 3. DVT prophylaxis: Lovenox. Henry Roy MD Nov 24, 2016 14:18
[2016-11-24 16:00] VITALS: BP 136/72; PULSE 74; RESP 18; TEMP 96.1; O2SAT 96
[2016-11-24 20:00] VITALS: BP 123/73; PULSE 67; RESP 20; TEMP 97.8; O2SAT 94
[2016-11-24] MEDS: VANCOMYCIN 1,500 MG/NS 500 ML IV SCH ×2 (22:22)
[2016-11-24] MEDS ORDERED: BACLOFEN 10 MG TAB PO ONE (22:45)
[2016-11-25] VITALS: BP 149/82; PULSE 72; RESP 19; TEMP 97.7; O2SAT 95
[2016-11-25] MEDS ORDERED: BUTATAB6 PO (02:26)
[2016-11-25] MEDS ORDERED: ACIDCHW CHEW (02:32)
[2016-11-25] MEDS ORDERED: ARIP1TAB13 PO (02:37)
[2016-11-25] MEDS ORDERED: BUPR75TA PO (02:40)
[2016-11-25] MEDS ORDERED: THER1GEL EACH EYE (02:45)
[2016-11-25] MEDS ORDERED: ALLE4TAB7 PO (02:47)
[2016-11-25] MEDS ORDERED: D31000TA PO (02:51)
[2016-11-25] MEDS ORDERED: ESOM1CAP16 PO (02:57)
[2016-11-25] MEDS ORDERED: LISI-519 PO (03:04)
[2016-11-25] MEDS ORDERED: PRAZ5CAP PO ×2 (03:09→03:22)
[2016-11-25] MEDS ORDERED: ROPI0.5T PO (03:13)
[2016-11-25] MEDS ORDERED: LACTTAB8 PO (03:18)
[2016-11-25] MEDS ORDERED: HYDR25TA5 PO (03:20)
[2016-11-25 05:41] LABS: AUTOMATED NEUTROPHIL # 4.6 TH/MM3 (1.8-7.7); BASOPHIL % 0.2 % (0.0-2.0); EOSINOPHIL # 0.3 TH/MM3 (0-0.4); EOSINOPHIL % 2.2 % (0.0-4.0); HEMATOCRIT 37.2 % (39.0-51.0); LYMPH % 58.9 % (9.0-44.0); LYMPHOCYTE # 8.3 TH/MM3 (1.0-4.8); MEAN CELL VOLUME 85.1 FL (80.0-100.0); MEAN CORPUSCULAR HGB CONC 32.9 % (32.0-36.0); MONO % 5.9 % (0.0-8.0); NEUT % 32.8 % (16.0-70.0); PLATELET COUNT 133 TH/MM3 (150-450); RED BLOOD COUNT 4.38 MIL/MM3 (4.50-5.90); RED CELL DISTRIBUTION WIDTH 15.1 % (11.6-17.2); WHITE BLOOD COUNT 14.1 TH/MM3 (4.0-11.0)
[2016-11-25 05:48] LABS: HEMO FLAGS AUTO DIFF
[2016-11-25] MEDS: PIPERACIL-TAZO 4.5 GM PREMIX 100 ML IV SCH ×3 (06:04→21:21)
[2016-11-25 06:54] LABS: BANDS 2 % (0-6); NEUTROPHIL # MANUAL DIFF 5.8 TH/MM3 (1.8-7.7); PLATELET ESTIMATE SMEAR LOW (NORMAL); PLATELET MORPHOLOGY NORMAL (NORMAL); POLYS (SEG NEUTROPHILS) 39 % (16-70); SCAN/DIFF FINAL DIFF MANUAL; WBC DIFF SAMPLE 100
[2016-11-25 08:00] VITALS: BP 137/70; PULSE 64; RESP 18; TEMP 96; O2SAT 96
[2016-11-25] MEDS: DOCUSATE SODIUM 50 MG/SENNA 8.6 MG TAB PO SCH ×2 (08:56→21:21)
[2016-11-25] MEDS: ENOXAPARIN SODIUM 40 MG/0.4 ML SYRINGE SQ SCH (08:56)
[2016-11-25] MEDS: SODIUM CHLORIDE 0.9% FLUSH 10 ML FLUSH IV FLUSH SCH ×2 (08:56→21:23)
[2016-11-25 09:33] VITALS: BP 133/70
--- NOTE | 2016-11-25 13:48 | HHI.PR ---
Subjective Remarks Follow up cellulitis, olecranon bursitis. Patient reports decreased pain and swelling in the left leg. Still with swelling over the right elbow. Objective Vitals Vital Signs Date Time Temp Pulse Resp B/P Pulse Ox O2 Delivery O2 Flow Rate FiO2 11/25/16 09:33 133/70 11/25/16 08:00 96.0 64 18 137/70 96 11/25/16 00:00 97.7 72 19 149/82 95 11/24/16 20:00 97.8 67 20 123/73 94 11/24/16 16:00 96.1 74 18 136/72 96 I/O 11/24/16 11/24/16 11/24/16 11/25/16 11/25/16 11/25/16 07:00 15:00 23:00 07:00 15:00 23:00 Intake Total 240 ml 240 ml 1060 ml Output Total 300 ml 900 ml Balance -60 ml 240 ml 160 ml Intake Oral 240 ml 240 ml 360 ml IV Total 700 ml Output Urine Total 300 ml 900 ml # Voids 2 1 # Bowel Movements 1 2 0 0 Result Diagram: 11/25/16 0515 11/24/16 0549 Imaging Last Impressions Lower Extremity Ultrasound 11/23/16 0000 Signed Impressions: Service Date/Time: Wednesday, November 23, 2016 19:31 - CONCLUSION: 1. No evidence of deep venous thrombosis. 2. Moderate size Tavares's cyst in the popliteal fossa region. 3. Prominent lymph nodes in the left groin. Julian Ashby MD Foot X-Ray 11/23/16 0000 Signed Impressions: Service Date/Time: Wednesday, November 23, 2016 18:52 - CONCLUSION: 1. No acute fracture or malalignment. 2. Mild osteoarthritic change. 3. Small spur off the inferior calcaneus. Julian Ashby MD Elbow X-Ray 11/23/16 0000 Signed Impressions: Service Date/Time: Wednesday, November 23, 2016 18:49 - CONCLUSION: Focal soft tissue swelling over the olecranon which could indicate bursitis. There is no definite underlying bony abnormality or effusion. Julian Ashby MD Objective Remarks General: No acute distress. Heart: Regular rate and rhythm. No murmur. Lungs: Clear to auscultation bilaterally. No wheezes, rales, or rhonchi. Breathing is nonlabored. Abdomen: Soft, nontender, nondistended. Extremities: No right lower extremity edema. Left lower leg with trace-1+ edema. Significant improvement in left leg swelling and erythema. Right elbow olecranon bursa swollen with overlying erythema. The area is warm, but nontender. Patient has full ROM of the right elbow without pain. Psych: Alert and oriented. Procedures None Urinary Catheter: No Vascular Central Line Catheter: No A/P Problem List: (1) Cellulitis of left lower extremity ICD Code: L03.116 Status: Acute (2) Failure of outpatient treatment ICD Code: Z78.9 Status: Acute (3) Olecranon bursitis ICD Code: M70.20 Status: Acute Assessment and Plan 1. Cellulitis, left lower leg: Failed outpatient therapy. Improving. Continue vancomycin, Zosyn. 2. Olecranon bursitis: Monitor. Conservative management at this time. Consider orthopedic surgery consultation if symptoms worsen. 3. DVT prophylaxis: Lovenox. Discharge Planning Possible discharge home tomorrow if clinically improved. Henry Roy MD Nov 25, 2016 13:48
[2016-11-25] MEDS ORDERED: LORATADINE 10 MG TAB PO PRN (14:00)
[2016-11-25] MEDS: buPROPion HCL 75 MG TAB PO SCH (16:40)
[2016-11-25] MEDS: BACLOFEN 20 MG TAB PO SCH (16:40)
[2016-11-25 16:47] VITALS: BP 144/84; PULSE 68; RESP 20; TEMP 96.9; O2SAT 97
[2016-11-25 18:34] VITALS: BP 144/84
[2016-11-25 20:00] VITALS: BP 149/78; PULSE 79; RESP 19; TEMP 96.1; O2SAT 95
[2016-11-25] MEDS ORDERED: ATORVASTATIN 80 MG TAB PO SCH (21:00)
[2016-11-25] MEDS: VANCOMYCIN 1,500 MG/NS 500 ML IV SCH ×2 (21:21)
[2016-11-25] MEDS: FAMOTIDINE 20 MG TAB PO SCH (21:21)
[2016-11-26] VITALS: BP 157/84; PULSE 75; RESP 19; TEMP 97.3; O2SAT 96
[2016-11-26] MEDS: PIPERACIL-TAZO 4.5 GM PREMIX 100 ML IV SCH (05:40)
[2016-11-26] MEDS ORDERED: LEVOTHYROXINE SODIUM 25 MCG TAB PO SCH (06:00)
[2016-11-26 08:00] VITALS: BP 157/88; PULSE 92; RESP 18; TEMP 97.3; O2SAT 97
[2016-11-26] MEDS: SODIUM CHLORIDE 0.9% FLUSH 10 ML FLUSH IV FLUSH SCH (08:40)
[2016-11-26] MEDS: FAMOTIDINE 20 MG TAB PO SCH (08:41)
[2016-11-26] MEDS: BACLOFEN 20 MG TAB PO SCH (08:41)
[2016-11-26] MEDS: ENOXAPARIN SODIUM 40 MG/0.4 ML SYRINGE SQ SCH (08:42)
[2016-11-26] MEDS: buPROPion HCL 75 MG TAB PO SCH (08:42)
[2016-11-26] MEDS: DOCUSATE SODIUM 50 MG/SENNA 8.6 MG TAB PO SCH (08:43)
[2016-11-26] MEDS ORDERED: ARIPiprazole 15 MG TAB PO SCH (09:00)
[2016-11-26] MEDS ORDERED: PRAZOSIN HCL 2 MG CAP PO SCH (09:00)
[2016-11-26] MEDS ORDERED: LISINOPRIL 5 MG TAB PO SCH (09:00)
[2016-11-26] MEDS ORDERED: MELOXICAM 15 MG TAB PO SCH (09:00)
[2016-11-26] MEDS ORDERED: PILL SPLITTER OTHER PRN (09:00)
[2016-11-26] MEDS ORDERED: ASPIRIN EC 81 MG TABEC PO SCH (09:00)
[2016-11-26] MEDS ORDERED: HYDROCHLOROTHIAZIDE 25 MG TAB PO SCH (09:00)
--- NOTE | 2016-11-26 09:09 | HHI.DCPOC ---
Discharge Care Plan Diagnosis: (1) Cellulitis of left lower extremity (2) Olecranon bursitis (3) HTN (hypertension) Goals to Promote Your Health * To prevent worsening of your condition and complications * To maintain your health at the optimal level Directions to Meet Your Goals Take your medications as prescribed Follow your dietary instruction Follow activity as directed Keep your appointments as scheduled Take your immunizations and boosters as scheduled If your symptoms worsen call your PCP, if no PCP go to Urgent Care Center or Emergency Room Smoking is Dangerous to Your Health. Avoid second hand smoke Call the 24-hour hour crisis hotline for domestic abuse at Chan Dee MD Nov 26, 2016 09:09
--- NOTE | 2016-11-26 09:10 | HHI.DS ---
Discharge Summary Admission Date Nov 23, 2016 at 21:19 Discharge Date: Nov 26, 2016 Admitting Diagnosis left lower leg cellulitis; failed outpatient treatment (1) Cellulitis of left lower extremity ICD Code: L03.116 (2) Failure of outpatient treatment ICD Code: Z78.9 (3) Olecranon bursitis ICD Code: M70.20 Procedures None Brief History - From Admission History of present illness from the admitting physician. The patient states, "my leg swelled up, it's been that way about a month" without associated pain. He has been on Doxycycline and Bactrim from [place] x 2 weeks with no improvement. Doppler U/S in ED showed no DVT, moderate size Tavares cyst in the popliteal fossa and prominent lymph nodes in the left groin. Fever and chills a couple of weeks ago. Denies n/v/d or chest pain. Fell last Saturday and right elbow is swollen, red, tender c/w olecranon bursitis. . CBC/BMP: 11/25/16 0515 11/24/16 0549 Significant Findings Laboratory Tests Test 11/23/16 11/24/16 11/25/16 18:44 05:49 05:15 White Blood Count 15.2 TH/MM3 17.2 TH/MM3 14.1 TH/MM3 (4.0-11.0) (4.0-11.0) (4.0-11.0) Hemoglobin 12.6 GM/DL 12.3 GM/DL 12.3 GM/DL (13.0-17.0) (13.0-17.0) (13.0-17.0) Mean Corpuscular Hemoglobin 26.9 PG (27.0-34.0) Mean Corpuscular Hemoglobin 31.6 % Concent (32.0-36.0) Platelet Count 149 TH/MM3 149 TH/MM3 133 TH/MM3 (150-450) (150-450) (150-450) Lymphocytes (%) (Auto) 56.4 % 56.5 % 58.9 % (9.0-44.0) (9.0-44.0) (9.0-44.0) Lymphocytes # (Auto) 8.6 TH/MM3 9.7 TH/MM3 8.3 TH/MM3 (1.0-4.8) (1.0-4.8) (1.0-4.8) Monocytes # (Auto) 1.0 TH/MM3 (0-0.9) Lymphocytes % 60 % (9-44) 63 % (9-44) 58 % (9-44) Platelet Estimate LOW (NORMAL) LOW (NORMAL) Ovalocytes 1+ (NORMAL) 1+ (NORMAL) Blood Urea Nitrogen 31 MG/DL (7-18) 27 MG/DL (7-18) Estimat Glomerular Filtration 58 ML/MIN (>89) 67 ML/MIN (>89) Rate Hematocrit 38.0 % 37.2 % (39.0-51.0) (39.0-51.0) Eosinophils # (Auto) 0.5 TH/MM3 (0-0.4) Random Glucose 113 MG/DL (74-106) Red Blood Count 4.38 MIL/MM3 (4.50-5.90) Imaging Last Impressions Lower Extremity Ultrasound 11/23/16 0000 Signed Impressions: Service Date/Time: Wednesday, November 23, 2016 19:31 - CONCLUSION: 1. No evidence of deep venous thrombosis. 2. Moderate size Tavares's cyst in the popliteal fossa region. 3. Prominent lymph nodes in the left groin. Julian Ashby MD Foot X-Ray 11/23/16 0000 Signed Impressions: Service Date/Time: Wednesday, November 23, 2016 18:52 - CONCLUSION: 1. No acute fracture or malalignment. 2. Mild osteoarthritic change. 3. Small spur off the inferior calcaneus. Julian Ashby MD Elbow X-Ray 11/23/16 0000 Signed Impressions: Service Date/Time: Wednesday, November 23, 2016 18:49 - CONCLUSION: Focal soft tissue swelling over the olecranon which could indicate bursitis. There is no definite underlying bony abnormality or effusion. Julian Ashby MD PE at Discharge General: No acute distress. Heart: Regular rate and rhythm. No murmur. Lungs: Clear to auscultation bilaterally. No wheezes, rales, or rhonchi. Breathing is nonlabored. Abdomen: Soft, nontender, nondistended. Extremities: No right lower extremity edema. Left lower leg with trace-1+ edema. Significant improvement in left leg swelling and erythema. Right elbow olecranon bursa swollen with overlying erythema. The area is warm, but nontender. Patient has full ROM of the right elbow without pain. Psych: Alert and oriented. Pt update on day of discharge Patient reports he is feeling great. Reports the infection on his leg is completely gone. No fevers or chills. Hospital Course 66-year-old male admitted with left lower leg cellulitis. He failed outpatient therapy. The patient was admitted and treated with vancomycin and Zosyn. Cellulitis completely resolved. He is discharged on no antibiotics. Patient also noted to have olecranon bursitis. This was treated conservatively. He is advised to continue with a compressive dressing. He will follow up outpatient with his primary care physician. Pt Condition on Discharge: Stable Discharge Disposition: Discharge Home Discharge Time: <= 30 minutes Discharge Instructions DIET: Follow Instructions for: As Tolerated, No Restrictions Activities you can perform: Regular-No Restrictions Follow up Referrals: PCP Follow-up - 2 Weeks Continued Medications: Acetaminophen (Tylenol) 325 Mg Tab 325 MG PO ONCE #1 Ref 0 TAB Aluminum Hydroxide-Mag Carb (Acid Gone) 160-105 mg Chew 2 TAB CHEW TIDAC Maximum 16 tabs/24 hrs. PRN UPSET STOMACH Days 60 TAB Aluminum Hydroxide-Mag Trisil (Gaviscon) 80-14.2 mg Chew 2 TAB CHEW TIDAC Maximum 16 tabs/24 hrs PRN UPSET STOMACH Ref 0 TAB Amlodipine (Norvasc) 10 Mg Tab 10 MG PO DAILY Blood Pressure Management #30 Ref 0 TAB Aripiprazole (Aripiprazole) 15 Mg Tab 7.5 MG PO DAILY #30 Ref [address] (Aspirin Adult Low Strength) 81 Mg Tabdr 81 MG PO DAILY TAB Baclofen (Baclofen) 20 Mg Tab 20 MG PO TID Muscle Spasm Ref 0 TAB Budesonide-Formoterol Inh (Symbicort Inh) 160-4.5 Mcg/Act Aero 2 PUFF INH BID #1 Ref 0 INHALER Bupropion HCl (Bupropion HCl) 75 Mg Tab 75 MG PO TID Control Depression Ref 0 TAB Buspirone (Buspirone) 10 Mg Tab 20 MG PO TID Anxiety Ref 0 TAB Cxlzvexcod-Jnjvnswbdifsk-Avmioyxj (Vfosvvbbrp-Nigkfhufgxjyp-Btjqnzkq) 50-325-40 Mg Tab 1 TAB PO TID Do not exceed 6 tablets/day. PRN HEADACHE Ref 0 TAB Carboxymethylcellulose Sodium Opth Gel (Theratears Unit-Dose Opth Gel) 1% Gel 1 DROP EACH EYE TID Dry Eye #1 Ref 0 BOX Chlorpheniramine (Allergy) 4 Mg Tab 4 MG PO TID PRN ALLERGIES Ref 0 TAB Cholecalciferol (Vitamin D3) 2,000 Unit Tab 2000 UNITS PO DAILY Nutritional Supplement #1 Ref 0 BOTTLE Cholecalciferol (D3) 1,000 Unit Tab 2000 PO DAILY Cyanocobalamin (Vitamin B-12) 1,000 Mcg Tab 1000 MCG PO DAILY Nutritional Supplement #1 Ref 0 BOTTLE Diclofenac Topical (Diclofenac Topical) 1% Gel 1 APPLIC TOPICAL QID Pain Management #100 Ref 0 GM Docusate Sodium (Colace) 100 Mg Cap 100 MG PO BID PRN Constipation #60 Ref [address] (Esomeprazole [address]) 40 Mg Capdr 40 MG PO BID PRN for stomach #30 Ref 0 CAP Ferrous Sulfate (Ferrous Sulfate) 325 Mg Tab 325 MG PO BID Nutritional Supplement #30 Ref 0 TAB Fluoxetine (Prozac) 40 Mg Cap 40 MG PO DAILY #30 Ref 0 CAP Folic Acid (Folate) 1 Mg Tab 1 MG PO EVERY OTHER DAY Nutritional Supplement Ref 0 TAB Hydrochlorothiazide (Hydrochlorothiazide) 25 Mg Tab 25 MG PO DAILY Blood Pressure Management #30 Ref 0 TAB Lactobacillus Acidophilus (Lactobacillus Acidophilus) 1 Tab Tab 2 TAB PO DAILY Nutritional Supplement #60 Ref 0 TAB Levothyroxine (Levothyroxine) 25 Mcg Tab 25 MCG PO DAILY Thyroid #30 Ref 0 TAB Lisinopril (Lisinopril) 5 Mg Tab 2.5 MG PO DAILY Blood Pressure Management #30 Ref 0 TAB Loratadine (Claritin) 10 Mg Tab 10 MG PO DAILY Allergy Management Ref 0 TAB Meloxicam (Mobic) 15 Mg Tab 15 MG PO DAILY Ref 0 TAB Metoprolol Tartrate (Metoprolol Tartrate) 25 Mg Tab 12.5 MG PO BID #60 Ref 0 TAB Mirtazapine (Mirtazapine) 45 Mg Tab 45 MG PO HS Depression Control #30 Ref 0 TAB Nitroglycerin SL (Nitrostat SL) 0.4 Mg Subl 0.4 MG SL DIRECTED 1 tablet under the tongue as needed for chest pain. Repeat every 5 minutes for a total of 3 DOSES or call 911 if NO relief. PRN CHEST PAIN #100 Ref 0 TAB.SL Olanzapine (Olanzapine) 20 Mg Tab 20 MG PO DAILY #30 Ref 0 TAB Polyethylene Glycol 3350 Powder (Miralax Powder) 17 Gm Powd 17 GM PO BID Mix and dissolve one measuring capful (17 grams) in water or juice. PRN CONSTIPATION #1 Ref 0 BOTTLE Prazosin (Minipress) 5 Mg Cap 7 MG PO HS Take 1 capsule (5mg) with 2mg capsule for a total dose of 7mg Blood Pressure Management #60 Ref 0 CAP Ranitidine (Zantac) 300 Mg Tab 300 MG PO BID Ref 0 TAB Ropinirole (Ropinirole) 0.5 Mg Tab 0.25 MG PO HS Parkinson Disease Mgmt #30 Ref 0 TAB Rosuvastatin (Crestor) 40 Mg Tab 40 MG PO HS Cholesterol Management #30 Ref 0 TAB Tiotropium Inh (Spiriva Handihaler) 18 Mcg Cap 1 PUFF INH DAILY 1 capsule = 18 mcg COPD #30 Ref 0 CAP Discontinued Medications: Levofloxacin (Levaquin) 750 Mg Tab 750 MG PO DAILY Infection #10 Ref 0 TAB Prazosin (Minipress) 2 Mg Cap 7 MG PO HS Take 1 capsule (2mg) with 5mg capsule for a total dose of 7mg Blood Pressure Management #60 Ref 0 CAP Prazosin (Prazosin) 2 Mg Cap 2 MG PO DAILY Blood Pressure Management #60 Ref 0 CAP Prazosin (Prazosin) 5 Mg Cap 10 MG PO HS for nightmares #60 Ref 0 CAP Sulfamethoxazole-Trimethoprim (Bactrim DS) 800-160 Mg Tab 1 TAB PO Q12HR #20 TAB Chan Dee MD Nov 26, 2016 09:10
[2016-11-26] MEDS ORDERED: PHARMACY ORDERED LAB ONE (21:45)
== END 2016-11-26 09:44 | disposition home or self-care (01) | DRG 603 ==
LOC: NEPE 17:22 → NEDA 21:19 → N07A 23:24
PROVIDERS: ADMIT Family Medicine; ATTEND Family Medicine
DX: L03.116 Cellulitis of left lower limb (principal); I10 Essential (primary) hypertension; M70.21 Olecranon bursitis, right elbow; F32.9 Major depressive disorder, single episode, unspecified; F41.9 Anxiety disorder, unspecified; E78.5 Hyperlipidemia, unspecified; F43.10 Post-traumatic stress disorder, unspecified; F17.210 Nicotine dependence, cigarettes, uncomplicated
CPT/HCPCS: 73080; 73630; 80048; 80053; 83605; 85007; 85027; 85610; 85730; 87040; 90714; 93971; J1650; J2543; J3370; J7040; J7050

== ENCOUNTER 2017-11-18 03:30 | Emergency (ER) | payer MEDICARE, OTHER ==
[~2017-11-18] VITALS: Ht 182.9 cm; Wt 78.0 kg
[~2017-11-18 03:30] MED LIST changes: +ACIDCHW CHEW; -ALBU0.08 NEB; +ALLE4TAB7 PO; +ARIP1TAB13 PO; -ASPI1TAB91 PO; +ASPI81TA16 PO; +BACL20TA PO; -BACT800T5 PO; +BUPR75TA PO; -BUTA1CAP2 PO; +BUTATAB6 PO; +D31000TA PO; +DICL1GEL7 TOPICAL; +ESOM1CAP16 PO; +HYDR25TA5 PO; +LACTTAB8 PO; -LEVA750T PO; +LISI-519 PO; +MIRT45TA PO; +MOBI15TA PO; -NEXI40CA PO; -PRAZ2 PO; +ROPI0.5T PO; +THER1GEL EACH EYE; +TYLE325T PO
[2017-11-18 03:52] VITALS: BP 138/63; PULSE 91; RESP 18; TEMP 97.9; O2SAT 96
[2017-11-18] MEDS ORDERED: KETOROLAC TROMETHAMINE 30 MG/ML (IVP) VIAL IV PUSH ONE (05:00)
[2017-11-18] MEDS ORDERED: SODIUM CHLOR 0.9% 1000 ML INJ 1,000 ML IV ONE (05:00)
[2017-11-18] MEDS ORDERED: MORPHINE SULFATE 4 MG/ML INJ IV PUSH ONE ×2 (05:00→06:15)
--- NOTE | 2017-11-18 05:13 | PD ---
HPI Chief Complaint: Syncope/Near-Syncope Time Seen by Provider: 04:11 Travel History International Travel<30 days: No Contact w/Intl Traveler<30days: No Traveled to known affect area: No History of Present Illness HPI 67-year-old male presents to the emergency department complaining of some back pain and some tingling into his legs. He reports that he had a syncopal episode a couple days ago. He attributes this to the heat as he was working in the heat all day. His abdomen couple times before. States he did not feel well rested today. Is not sure if he had back pain after the passing out or not. The next day he had more back pain radiating to his legs. He has had severe back pain in the remote past. Pain is mostly in his low back, radiates into his left and right legs, has had worsening numbness and weakness in the legs as well, also left greater than right. Symptoms been persistent until he came to the patient states that he never really empties his bladder fully and [facility] that [facility] needs to self [facility]. He does not really do this, and is not sure what the etiology is. Denies any other change in bowel or bladder function. Denies any saddle anesthesia. 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; (arm)-08/28/16 Reported Meds & Prescriptions Reported Meds & Active Scripts Active Reported Hydrochlorothiazide 25 Mg Tab 25 Mg PO DAILY Lactobacillus Acidophilus 1 Tab Tab 2 Tab PO DAILY Ropinirole 0.5 Mg Tab 0.25 Mg PO HS Lisinopril 5 Mg Tab 2.5 Mg PO DAILY Esomeprazole DR 40 Mg Capdr 40 Mg PO BID PRN D3 (Cholecalciferol) 1,000 Unit Tab 2,000 PO DAILY Allergy (Chlorpheniramine Maleate) 4 Mg Tab 4 Mg PO TID PRN Theratears Unit-Dose Opth Gel (Carboxymethylcellulose Sodium Opth Gel) 1% Gel 1 Drop EACH EYE TID Bupropion HCl 75 Mg Tab 75 Mg PO TID Aripiprazole 15 Mg Tab 7.5 Mg PO DAILY Acid Gone (Aluminum Hydroxide-Mag Carb) 160-105 mg Chew 2 Tab CHEW TIDAC PRN 60 Days Maximum 16 tabs/24 hrs. Zasjihhxbc-Mitsxphxbfdpm-Fkromnpr 50-325-40 Mg Tab 1 Tab PO TID PRN Do not exceed 6 tablets/day. Mirtazapine 45 Mg Tab 45 Mg PO HS Mobic (Meloxicam) 15 Mg Tab 15 Mg PO DAILY Diclofenac Topical 1% Gel 1 Applic TOPICAL QID Baclofen 20 Mg Tab 20 Mg PO TID Tylenol (Acetaminophen) 325 Mg Tab 325 Mg PO ONCE Spiriva Handihaler (Tiotropium Inh) 18 Mcg Cap 1 Puff INH DAILY 1 capsule = 18 mcg Crestor (Rosuvastatin Calcium) 40 Mg Tab 40 Mg PO HS Zantac (Ranitidine HCl) 300 Mg Tab 300 Mg PO BID Olanzapine 20 Mg Tab 20 Mg PO DAILY Nitrostat SL (Nitroglycerin) 0.4 Mg Subl 0.4 Mg SL DIRECTED PRN 1 tablet under the tongue as needed for chest pain. Repeat every 5 minutes for a total of 3 DOSES or call 911 if NO relief. Vitamin B-12 (Cyanocobalamin) 1,000 Mcg Tab 1,000 Mcg PO DAILY Miralax Powder (Polyethylene Glycol 3350 Powder) 17 Gm Powd 17 Gm PO BID PRN Mix and dissolve one measuring capful (17 grams) in water or juice. Minipress (Prazosin HCl) 5 Mg Cap 7 Mg PO HS Take 1 capsule (5mg) with 2mg capsule for a total dose of 7mg Metoprolol Tartrate 25 Mg Tab 12.5 Mg PO BID Claritin (Loratadine) 10 Mg Tab 10 Mg PO DAILY Levothyroxine (Levothyroxine Sodium) 25 Mcg Tab 25 Mcg PO DAILY Gaviscon (Aluminum Hydroxide-Mag Trisil) 80-14.2 mg Chew 2 Tab CHEW TIDAC PRN Maximum 16 tabs/24 hrs Folate (Folic Acid) 1 Mg Tab 1 Mg PO EVERY OTHER DAY Prozac (Fluoxetine HCl) 40 Mg Cap 40 Mg PO DAILY Ferrous Sulfate 325 Mg Tab 325 Mg PO BID Colace (Docusate Sodium) 100 Mg Cap 100 Mg PO BID PRN Vitamin D3 (Cholecalciferol) 2,000 Unit Tab 2,000 Units PO DAILY Buspirone (Buspirone HCl) 10 Mg Tab 20 Mg PO TID Symbicort Inh (Budesonide/Formoterol Fumarate) 160-4.5 Mcg/Act Aero 2 Puff INH BID Aspirin Adult Low Strength (Aspirin) 81 Mg Tabdr 81 Mg PO DAILY Norvasc (Amlodipine Besylate) 10 Mg Tab 10 Mg PO DAILY Review of Systems Except as stated in HPI: all other systems reviewed are Neg Physical Exam Narrative GENERAL: 67-year-old man, no acute distress. SKIN: Focused skin assessment warm/dry. HEAD: Atraumatic. Normocephalic. EYES: Pupils equal and round. No scleral icterus. No injection or drainage. ENT: No nasal bleeding or discharge. Mucous membranes pink and moist. NECK: Trachea midline. No JVD. CARDIOVASCULAR: Regular rate and rhythm. No murmur appreciated. RESPIRATORY: No accessory muscle use. Clear to auscultation. Breath sounds equal bilaterally. GASTROINTESTINAL: Abdomen soft, non-tender, nondistended. Hepatic and splenic margins not palpable. MUSCULOSKELETAL: No obvious deformities. Some tenderness to palpation in the lower lumbar spine, especially on the paraspinous muscles. NEUROLOGICAL: Awake and alert. No obvious cranial nerve deficits. On direct testing strength seems full and equal in the upper and lower extremities, proximal distal muscle groups, plantar dorsiflexion of the foot and great toes bilaterally. Reflexes are nearly absent bilateral lower patient able to walk unassisted, does hunch over a little bit due to pain. PSYCHIATRIC: Appropriate mood and affect; insight and judgment normal. Data Data Last Documented VS Vital Signs Date Time Temp Pulse Resp B/P (MAP) Pulse Ox O2 Delivery O2 Flow Rate FiO2 11/18/17 03:52 97.9 91 18 138/63 (88) 96 Orders Orders Electrocardiogram (11/18/17 ) Complete Blood Count With Diff (11/18/17 04:59) Comprehensive Metabolic Panel (11/18/17 04:59) Iv Access Insert/Monitor (11/18/17 04:59) Ct Lumb Spine W/O Contrast (11/18/17 ) Ketorolac Inj (Toradol Inj) (11/18/17 05:00) Morphine Inj (Morphine Inj) (11/18/17 05:00) Sodium Chlor 0.9% 1000 Ml Inj (Ns 1000 M (11/18/17 05:00) MDM Medical Decision Making Medical Screen Exam Complete: Yes Emergency Medical Condition: Yes Interpretation(s) My review of EKG: Normal sinus rhythm at a rate of 77, intervals, appears reading minimal ST depression which I really only seen in lead II. No definite evidence of acute ischemia. Differential Diagnosis Fracture, malignancy, strain or sprain, cauda equina, compression, radiculopathy , other Narrative Course Medical decision making 59-year-old male presents emerged department with back pain. Radiates into both legs. Some numbness tingling any states generalized weakness. Neurologic exam is fairly unremarkable. Patient is a little bit of a poor historian was unable to looks overall well. Able to walk unassisted. Will check CT of his back. Also check EKG and labs given a recent syncopal episode. Reassess. Jose Casey MD Nov 18, 2017 05:13
[2017-11-18 05:19] LABS: AUTOMATED NEUTROPHIL # 4.5 TH/MM3 (1.8-7.7); BASOPHIL % 0.3 % (0.0-2.0); EOSINOPHIL # 0.2 TH/MM3 (0-0.4); HEMATOCRIT 38.5 % (39.0-51.0); HEMOGLOBIN 12.2 GM/DL (13.0-17.0); LYMPH % 53.7 % (9.0-44.0); LYMPHOCYTE # 6.5 TH/MM3 (1.0-4.8); MEAN CORPUSCULAR HEMOGLOBIN 25.7 PG (27.0-34.0); MEAN CORPUSCULAR HGB CONC 31.8 % (32.0-36.0); MEAN PLATELET VOLUME 8.1 FL (7.0-11.0); MONO % 6.4 % (0.0-8.0); MONOCYTE # 0.8 TH/MM3 (0-0.9); NEUT % 37.6 % (16.0-70.0); PLATELET COUNT 228 TH/MM3 (150-450); RED BLOOD COUNT 4.75 MIL/MM3 (4.50-5.90); RED CELL DISTRIBUTION WIDTH 16.7 % (11.6-17.2); WHITE BLOOD COUNT 12.1 TH/MM3 (4.0-11.0)
[2017-11-18] MEDS ORDERED: SIME1CAP17 PO (05:28)
[2017-11-18] MEDS ORDERED: FOLI400T PO (05:28)
[2017-11-18] MEDS ORDERED: SULF1TAB23 PO (05:28)
[2017-11-18 05:34] LABS: ALBUMIN 4.1 GM/DL (3.4-5.0); AST (GOT) 21 U/L (15-37); BICARBONATE 22.4 MEQ/L (21.0-32.0); BLOOD UREA NITROGEN 21 MG/DL (7-18); CALCIUM 9.4 MG/DL (8.5-10.1); CHLORIDE 106 MEQ/L (98-107); CREATININE 1.46 MG/DL (0.60-1.30); GLOMERULAR FILTRATION RATE 48 ML/MIN (>89); GLUCOSE,RANDOM 109 MG/DL (74-106); SODIUM (NA) 140 MEQ/L (136-145)
[2017-11-18 05:35] LABS: ALT (GPT) 31 U/L (12-78)
[2017-11-18 05:37] LABS: ALKALINE PHOSPHATASE 140 U/L (45-117); TOTAL BILIRUBIN ADULT 0.4 MG/DL (0.2-1.0); TOTAL PROTEIN 7.6 GM/DL (6.4-8.2)
--- NOTE | 2017-11-18 05:53 | RADRPT ---
EXAM DATE: 11/18/2017 5:29 AM EDT AGE/SEX: 67 years / Male INDICATIONS: Low back pain; patient fell 2 days ago. CLINICAL DATA: This is the patient's initial encounter. Patient reports that signs and symptoms have been present for 2 days and indicates a pain score of 7/10. MEDICAL/SURGICAL HISTORY: Hypertension. Chronic obstructive pulmonary disease. Gastroesophageal r eflux disease. Leukemia, myocardial infarction . Cervical spine surgery RADIATION DOSE: 41.33 CTDI (mGy) COMPARISON: No prior exams available for comparison. TECHNIQUE: Contiguous axial images were acquired with a multirow detector CT scanner without contras t. Multiplanar reconstructions in the sagittal and coronal plane were also performed. Using automate d exposure control and adjustment of the mA and/or kV according to patient size, radiation dose was k ept as low as reasonably achievable to obtain optimal diagnostic quality images. DICOM format image data is available electronically for review and comparison. FINDINGS: Vertebrae: Normal vertebral body height. Alignment: Normal. No subluxation. T12-L1: The thecal sac has a normal diameter. No evidence of disc bulge or protrusion. The neural foramina are patent bilaterally. There is mild facet hypertrophy. L1-L2: The thecal sac has a normal diameter. No evidence of disc bulge or protrusion. The neural f oramina are patent bilaterally. There is mild facet hypertrophy especially on the left. Minimal anter ior marginal osteophytes are present. L2-L3: The thecal sac has a normal diameter. No evidence of disc bulge or protrusion. The neural f oramina are patent bilaterally. There is mild facet hypertrophy. Mild anterior marginal osteophytes a re present. L3-L4: The thecal sac has a normal diameter. No evidence of disc bulge or protrusion. The neural f oramina are patent bilaterally. There is mild to moderate facet hypertrophy is seen being worse on th e right. Anterior marginal osteophytes are seen. L4-L5: There is mild diffuse disc bulge. There is mild facet hypertrophy being worse on the right. L igament flavum hypertrophy. These changes cause a mild impression on the thecal sac. The neural donya cynthia are patent bilaterally. L5-S1: The disc demonstrates decreased height. There is a vacuum phenomenon. There is diffuse disc b ulge there is posterior and anterior osteophytic ridging. The disc bulge causes a mild impression on the thecal sac. There is mild facet hypertrophy. There is narrowing of the neural foramina bilaterall y. CONCLUSION: 1. No acute bony abnormalities seen. 2. Mild disc bulges at the L4-L5 and L5-S1 levels causing mild impressions on thecal sac. 3. Neural foraminal narrowing at the L5-S1 level. 4. Facet hypertrophy seen throughout. Electronically signed by: Gilmar Kwok MD 11/18/2017 5:51 AM EDT
[2017-11-18 06:01] LABS: BANDS 2 % (0-6); LYMPHOCYTES 56 % (9-44); MONOCYTES 5 % (0-8); NEUTROPHIL # MANUAL DIFF 4.2 TH/MM3 (1.8-7.7); POLYS (SEG NEUTROPHILS) 33 % (16-70)
[2017-11-18 06:03] LABS: SICKLE CELLS 1+ (NORMAL)
[2017-11-18 06:29] VITALS: BP 127/78; PULSE 78; RESP 18; O2SAT 98
--- NOTE | 2017-11-18 07:17 | PD ---
Physical Exam Narrative Received signout from Dr. Terrell. Patient presented with syncope and back pain with bilateral lower extremity weakness. Signout is for follow-up MRI. Evaluated patient complaining of back pain. He has received pain medication, awaiting MRI. Data Data Last Documented VS Vital Signs Date Time Temp Pulse Resp B/P (MAP) Pulse Ox O2 Delivery O2 Flow Rate FiO2 11/18/17 12:00 64 16 151/74 (99) 97 Room Air 11/18/17 03:52 97.9 Orders Orders Electrocardiogram (11/18/17 ) Complete Blood Count With Diff (11/18/17 04:59) Comprehensive Metabolic Panel (11/18/17 04:59) Iv Access Insert/Monitor (11/18/17 04:59) Ct Lumb Spine W/O Contrast (11/18/17 ) Ketorolac Inj (Toradol Inj) (11/18/17 05:00) Morphine Inj (Morphine Inj) (11/18/17 05:00) Sodium Chlor 0.9% 1000 Ml Inj (Ns 1000 M (11/18/17 05:00) Mri L Spine W/O Contrast (11/18/17 06:04) Morphine Inj (Morphine Inj) (11/18/17 06:15) Morphine Inj (Morphine Inj) (11/18/17 08:30) Labs Laboratory Tests Test 11/18/17 05:09 White Blood Count 12.1 TH/MM3 Red Blood Count 4.75 MIL/MM3 Hemoglobin 12.2 GM/DL Hematocrit 38.5 % Mean Corpuscular Volume 81.0 FL Mean Corpuscular Hemoglobin 25.7 PG Mean Corpuscular Hemoglobin Concent 31.8 % Red Cell Distribution Width 16.7 % Platelet Count 228 TH/MM3 Mean Platelet Volume 8.1 FL Neutrophils (%) (Auto) 37.6 % Lymphocytes (%) (Auto) 53.7 % Monocytes (%) (Auto) 6.4 % Eosinophils (%) (Auto) 2.0 % Basophils (%) (Auto) 0.3 % Neutrophils # (Auto) 4.5 TH/MM3 Lymphocytes # (Auto) 6.5 TH/MM3 Monocytes # (Auto) 0.8 TH/MM3 Eosinophils # (Auto) 0.2 TH/MM3 Basophils # (Auto) 0.0 TH/MM3 CBC Comment AUTO DIFF Differential Total Cells Counted 100 Neutrophils % (Manual) 33 % Band Neutrophils % 2 % Lymphocytes % 56 % Monocytes % 5 % Eosinophils % 4 % Neutrophils # (Manual) 4.2 TH/MM3 Differential Comment FINAL DIFF MANUAL Atypical Lymphocytes % Platelet Estimate NORMAL Platelet Morphology Comment NORMAL Sickle Cells 1+ Blood Urea Nitrogen 21 MG/DL Creatinine 1.46 MG/DL Random Glucose 109 MG/DL Total Protein 7.6 GM/DL Albumin 4.1 GM/DL Calcium Level 9.4 MG/DL Alkaline Phosphatase 140 U/L Aspartate Amino Transf (AST/SGOT) 21 U/L Alanine Aminotransferase (ALT/SGPT) 31 U/L Total Bilirubin 0.4 MG/DL Sodium Level 140 MEQ/L Potassium Level 3.2 MEQ/L Chloride Level 106 MEQ/L Carbon Dioxide Level 22.4 MEQ/L Anion Gap 12 MEQ/L Estimat Glomerular Filtration Rate 48 ML/MIN MDM Supervised Visit with ADILSON: No Interpretation(s) Last Impressions Lumbar Spine MRI 11/18/17 0604 Signed Impressions: CONCLUSION: 1. Spinal stenosis L4-5 and L5-S1 mostly degenerative, an acute small disc at L4-5 cannot be entirely excluded. 2. There is no evidence for acute compression fracture 3. Retroperitoneum is unremarkable. Lumbar Spine CT 11/18/17 0000 Signed Impressions: CONCLUSION: 1. No acute bony abnormalities seen. 2. Mild disc bulges at the L4-L5 and L5-S1 levels causing mild impressions on thecal sac. 3. Neural foraminal narrowing at the L5-S1 level. 4. Facet hypertrophy seen throughout. Diagnosis Primary Impression: Spinal stenosis Qualified Codes: M48.061 - Spinal stenosis, lumbar region without neurogenic claudication Additional Impression: Right leg weakness Patient Instructions: Acute Low Back Pain (ED), General Instructions Additional Instruction: 1. Followup with doctor in 24-48 hours. 2. Return to ER immediately for fever, inability to control bowel/bladder, increase weakness/pain/swelling in extremity , inability to walk, or for any new/worrisome/worsening symptoms. Med/Other Pt SpecificInfo: Prescription(s) given Scripts Hydrocodone-Acetaminophen ([place]) 5 Mg-325 Mg Tab 1 TAB PO Q6H Y for PAIN for 3 Days, #12 TAB 0 Refills Prov: Kesha Wilson MD 11/18/17 Disposition: 01 DISCHARGE HOME Condition: Stable Kesha Wilson MD Nov 18, 2017 07:17
[2017-11-18] MEDS ORDERED: MORPHINE SULFATE 2 MG/ML SYRINGE IV PUSH ONE (08:30)
--- NOTE | 2017-11-18 09:31 | RADRPT ---
EXAM DATE: 11/18/2017 9:22 AM EDT AGE/SEX: 67 years / Male INDICATIONS: Trauma. CLINICAL DATA: This is the patient's initial encounter. Patient reports that signs and symptoms have been present for 2 days and indicates a pain score of 7/10. MEDICAL/SURGICAL HISTORY: Hypertension. Chronic obstructive pulmonary disease. Leukemia. Fusi on, cervical. Carpal tunnel. COMPARISON: No prior exams available for comparison. TECHNIQUE: Multiplanar, multisequence MRI of the lumbar spine was performed without contrast. Patie nt was scanned in a sitting position; neutral, flexion, and extension scans were performed in the sa gittal plane. FINDINGS: Vertebra: Homogeneous signal. Normal alignment. I do not see an acute compression. Conus: Normal level and configuration. T12-L1: The thecal sac has a normal diameter. No evidence of disc bulge or protrusion. The neural foramina are patent bilaterally. L1-L2: Very mild interspace ridging is present without significant spinal stenosis. Mild facet dise ase is evident. L2-L3: Mild generalized disc bulging is present eccentric to the right. Moderate facet disease is p resent. There is no significant spinal stenosis. L3-L4: Generalized disc bulging is present with ligamentous hypertrophy and moderate facet disease. There is moderate spinal stenosis. L4-L5: Bulging is present eccentric to the right encroaching the right L4 root no S3 the right L5 r oot. Extensive degenerative changes are present facets. Spinal stenosis is significant. Moderate late ral recess stenosis is evident. L5-S1: Concentric bulging is present to the right encroaching the right L5 and the right S1 root. M oderate degenerative changes are present facets. SI joints are normal. Retroperitoneum is unremarkable. CONCLUSION: 1. Spinal stenosis L4-5 and L5-S1 mostly degenerative, an acute small disc at L4-5 cannot be entirel y excluded. 2. There is no evidence for acute compression fracture 3. Retroperitoneum is unremarkable. Electronically signed by: Héctor Rod MD 11/18/2017 9:30 AM EDT
[2017-11-18 12:00] VITALS: BP 151/74; PULSE 64; RESP 16; O2SAT 97
[2017-11-18] MEDS ORDERED: NORC5TAB PO (12:41)
--- NOTE | 2017-11-18 22:57 | EKG ---
Date Performed: 11/18/2017 Time Performed: 05:00:29 PTAGE: 67 years EKG: Sinus rhythm MINIMAL ST DEPRESSION BORDERLINE ECG PREVIOUS TRACING : 06/29/2016 20.11 Since the previous tracing, rate has increased DOCTOR: Bradly Villa Interpretating Date/Time 11/18/2017 22:55:08
== END 2017-11-18 13:00 | disposition home or self-care (01) ==
LOC: NEPE 03:30
DX: M48.061 Spinal stenosis, lumbar region without neurogenic claudication (principal); R53.1 Weakness; I10 Essential (primary) hypertension; F17.200 Nicotine dependence, unspecified, uncomplicated
CPT/HCPCS: 72131; 72148; 80053; 85007; 85027; 93005; 96361; 96374; 96375; 96376; 99285; J1885; J2270; J7030